=== PATIENT | male | born 1935 | race Caucasian/White ===

== ENCOUNTER 2016-12-11 11:11 | Inpatient (IN) | payer MEDICARE ==
[2016-12-11] VITALS (9 sets, daily range): BP systolic 129–158; BP diastolic 62–88
[~2016-12-11] VITALS: Ht 172.7 cm; Wt 60.8 kg
--- NOTE | ~2016-12-11 | PR ---
[place], [place] PROGRESS NOTE NAME: LIZET BOYCE [facility] #: [id number] UNIT #: [id number] ROOM: 512 DOCTOR: GONZALEZ MEMBRENO MD BIRTHDATE: [birth year] DOS: 12/14/2016 CARDIOLOGY PROGRESS NOTE SUBJECTIVE: The patient was seen at his bedside without any family members in attendance. He is awake, alert and oriented. He denies any specific complaints, but states he has not been out of bed much. He specifically denies palpitations, chest pain or dyspnea. He denies any black stools or diarrhea. PHYSICAL EXAMINATION: VITAL SIGNS: Today, his pulse is 90 and irregularly irregular; blood pressure is 134/67. He weighs 60.8 kilograms with a body mass index of 20.4. NECK: Supple. He has no jugular distention. Carotids are full. LUNGS: Respirations are unlabored. His chest is clear. HEART: Has an irregularly irregular rhythm with a controlled ventricular response. There are no murmurs or gallops. ABDOMEN: Soft and slightly distended, but nontender, without masses. EXTREMITIES: Showed no edema. LABORATORY DATA: From today are not yet available. Specifically, his hemoglobin has not been checked today. IMAGING DATA: Echocardiogram done yesterday 12/13/2016 was a technically limited exam. The patient was in atrial fibrillation with a normal left ventricular size, mild concentric left ventricular hypertrophy, normal segmental left ventricular wall motion and an ejection fraction of 70%-75%. A small pericardial effusion is present with slight thickening of the pericardium, but no evidence for tamponade. IMPRESSION: 1. History of atrial fibrillation since 2013. 2. CHADS-VASc score of 5, indicating a yearly stroke risk of 7%. HAS-BLED score is also 5, indicating a risk of recurrent bleeding to be between 5% and 20%. 3. Anemia, evaluation pending. Anemia is microcytic and is new compared to 04/2016. Presumably, this is due to blood loss, but thus far blood loss has not been documented. PLAN: We will defer any evaluation and management of his anemia to his primary physicians; however, it will be difficult to control his heart rate and maintain an adequate blood pressure while he significantly is anemic. In addition, the patient has a very strong indication for long-term anticoagulation. As soon as he is cleared by his primary team I think he should be back on rivaroxaban. I would not place him on concurrent antiplatelet agent, however. I thank the hospitalist group for asking our advice regarding his care. [place], [place] PROGRESS NOTE NAME: LIZET BOYCE UNIT #: [id number] ROOM: [facility] DOCTOR: GONZALEZ MEMBRENO MD BIRTHDATE: [birth year] GONZALEZ MEMBRENO MD CM:PNTRANS [id number] GONZALEZ MEMBRENO MD 12/14/16 2324 interface
--- NOTE | ~2016-12-11 | PR ---
[place], [place] PROGRESS NOTE NAME: LIZET BOYCE [facility] #: [id number] UNIT #: [id number] ROOM: 512 DOCTOR: GONZALEZ MEMBRENO MD BIRTHDATE: [birth year] DOS: 12/13/2016 CARDIOLOGY PROGRESS NOTE SUBJECTIVE: The patient was seen at his bedside today, 12/13/2016, for followup of his atrial fibrillation with rapid ventricular response. He is an 81-year-old man who initially was documented as having atrial fibrillation in 06/2014. He was maintained for a time on anticoagulants, but stopped them. He is typically followed by the [facility]. In September of this year, he did suffer a stroke and was placed back on rivaroxaban along with aspirin at that time. He states that recently he has been more fatigued and was found on outpatient testing to be severely anemic. He was therefore brought into the hospital for further assessment and management. He has been transfused since admission and his hemoglobin has risen from 6.7-8.1. He does have microcytic indices. Platelet count is normal at 207,000, white count is slightly elevated at 10,500. The patient states that he does feel better since he has been transfused. Thus far, an evaluation for blood loss has been negative. PHYSICAL EXAMINATION: GENERAL: Today, he is a well-nourished, white male who is awake, alert, and oriented. VITAL SIGNS: Pulse is 99 and irregularly irregular, blood pressure is 126/76. He is afebrile. He weighs 60.8 kilograms with a body mass index of 20.4. NECK: Supple. He has no jugular distention. Carotids are full. I heard no bruits. LUNGS: Respirations were unlabored. His chest was clear to auscultation and percussion. HEART: Had an irregularly irregular rhythm without murmurs or gallops. The PMI was not displaced. He had no precordial heave, lift, or thrill. ABDOMEN: Soft and normally active without masses, organomegaly, or bruits. EXTREMITIES: Showed no edema. Peripheral pulses were diminished in the feet. IMPRESSION: 1. History of atrial fibrillation since 2013. 2. CHADS-VASc score of 5, indicating a yearly risk of stroke of about 7%. Unfortunately, the HAS-BLED score is also 5, indicating risk of recurrent bleeding to be between 5% and 20%. PLAN: For now, we will treat him with rate control. We will defer any evaluation of his anemia to his Primary service, but hopefully, they will be able to find a cause for his severe anemia such that we can resume at least Xarelto. Given his recent GI bleed, I would not have him on both rivaroxaban and aspirin. We will follow him with his primary physicians in the hospital. I thank Dr. Bella for asking our advice regarding his care. [place], [place] PROGRESS NOTE NAME: LIZET BOYCE UNIT #: [id number] ROOM: 512 DOCTOR: GONZALEZ MEMBRENO MD BIRTHDATE: [birth year] GONZALEZ MEMBRENO MD CM:PNTRANS [id number] GONZALEZ MEMBRENO MD 12/14/16 0345 interface
[~2016-12-11 11:11] MED LIST: ALBUTEROL0.09 MG/A3 INH; ANTIBIOTIC O500 U/GM TP; DILTIAZEM CD120 MG PO; IRON325 M1 PO; NAPROSYN500 MG PO; OMEPRAZOLE20 MG PO; PARAFON FORTE500 MG PO; PRAVASTATIN SOD40 MG PO; PULMICORT180 MCG/AC INH; SPIRIVA18 MCG PO; XARE20MG PO
[2016-12-11] MEDS ORDERED: XARE20MG PO (11:32)
[2016-12-11] MEDS ORDERED: PROZAC20 MG PO (11:34)
[2016-12-11] MEDS ORDERED: DOCUSATE SODIU100 M2 PO ×2 (11:35)
[2016-12-11] MEDS ORDERED: ASPIRIN CHEWABL81 MG PO (11:36)
[2016-12-11 11:53] LABS: BASO # 0.1 10*3/uL (0.0-0.1); BASO % 0.6 % (0.0-1.0); EOS # 0.3 10*3/uL (0.0-0.4); EOS % 3.1 % (1.0-4.0); HEMATOCRIT 24.7 % (42.0-52.0); HEMOGLOBIN 6.7 g/dl (14.0-18.0); LYMPH # 2.1 10*3/uL (1.3-4.4); LYMPH % 23.7 % (27.0-41.0); MEAN CELL VOLUME 69.6 fl (80.0-94.0); MEAN CORPUSCULAR HGB 18.9 pg (27.0-31.0); MEAN CORPUSCULAR HGB CONC 27.1 g/dl (33.0-37.0); MEAN PLATELET VOLUME 10.4 fl (9.6-12.3); MONO # 0.5 10*3/uL (0.1-1.0); MONO % 6.2 % (3.0-9.0); NEUT # 5.8 10*3/uL (2.3-7.9); NEUT % 66.1 % (47.0-73.0); NUCLEATED RED BLOOD CELL 0.3 % (0.0-0.0); RED BLOOD COUNT 3.55 10*6/uL (4.50-5.90); RED CELL DISTRI WIDTH 25.3 % (0-14.5); WHITE BLOOD COUNT 8.7 10*3/uL (4.8-10.8)
[2016-12-11 12:08] LABS: PROTHROMBIN TIME 10.2 SECONDS (9.0-12.4)
[2016-12-11 12:09] LABS: ALBUMIN 3.1 gm/dl (3.1-4.5); ALKALINE PHOSPHATASE 94 U/L (45-117); BILIRUBIN, DIRECT < 0.1 mg/dL (0.0-0.2); BILIRUBIN, TOTAL 0.4 mg/dl (0.2-1.0); BUN 17 mg/dl (7-24); CARBON DIOXIDE 30 mmol/L (21-32); CHLORIDE 107 mmol/L (98-107); EST GLOM FILT AFRICAN AMERICAN > 60 ml/min; GLUCOSE 117 mg/dL (65-99); POTASSIUM 4.1 mmol/L (3.5-5.1); SGOT/AST 14 IU/L (3-35); SGPT/ALT 24 U/L (12-78); SODIUM 144 mmol/L (136-145); TOTAL PROTEIN 6.7 gm/dL (6.4-8.2)
[2016-12-11 12:11] LABS: PLATELET COUNT AUTOMATED 254 10*3/uL (130-400)
[2016-12-11 12:17] LABS: TROPONIN I < 0.015 ng/ml (<0.045)
[2016-12-11 13:22] LABS: IRON 10 ug/dL (65-175); IRON SATURATION 2 %; UIBC 339 ug/dL (110-410)
[2016-12-11 13:54] LABS: IRF 4.3 % (2.4-13.3)
[2016-12-11 13:55] LABS: RET-He 14.1 pg (32.1-37.9)
[2016-12-11 13:56] LABS: RETICULOCYTE % 1.18 % (0.50-2.50)
[2016-12-11] MEDS ORDERED: FLAXSEED1000 MG PO (14:58)
[2016-12-11] MEDS ORDERED: OMEGA 3 500 SO1 EACH PO (14:59)
[2016-12-11] MEDS ORDERED: MULTI VITAMINS1 TAB PO (15:00)
[2016-12-11 19:04] LABS: BASO # 0.1 10*3/uL (0.0-0.1); BASO % 1.1 % (0.0-1.0); EOS # 0.2 10*3/uL (0.0-0.4); EOS % 2.6 % (1.0-4.0); HEMATOCRIT 26.8 % (42.0-52.0); HEMOGLOBIN 7.9 g/dl (14.0-18.0); LYMPH # 1.9 10*3/uL (1.3-4.4); LYMPH % 23.3 % (27.0-41.0); MEAN CORPUSCULAR HGB 21.5 pg (27.0-31.0); MEAN CORPUSCULAR HGB CONC 29.5 g/dl (33.0-37.0); MEAN PLATELET VOLUME 10.1 fl (9.6-12.3); MONO # 0.6 10*3/uL (0.1-1.0); MONO % 7.9 % (3.0-9.0); NEUT # 5.2 10*3/uL (2.3-7.9); NEUT % 64.7 % (47.0-73.0); NUCLEATED RED BLOOD CELL 0.1 10*3/uL (0.0-0.0); NUCLEATED RED BLOOD CELL 0.6 % (0.0-0.0); PLATELET COUNT AUTOMATED 205 10*3/uL (130-400); RED BLOOD COUNT 3.67 10*6/uL (4.50-5.90); RED CELL DISTRI WIDTH 26.1 % (0-14.5); WHITE BLOOD COUNT 8.1 10*3/uL (4.8-10.8)
[2016-12-11 22:22] LABS: BILIRUBIN NEGATIVE (NEGATIVE); BLOOD NEGATIVE (NEGATIVE); CLARITY CLEAR (CLEAR); COLOR YELLOW (YELLOW); GLUCOSE NEGATIVE (NEGATIVE); KETONE NEGATIVE (NEGATIVE); LEUKO ESTERASE NEGATIVE (NEGATIVE); NITRITE NEGATIVE (NEGATIVE); PH 7.5 (5.0-9.0); PROTEIN NEGATIVE (NEGATIVE); SPECIFIC GRAVITY <= 1.005 (1.005-1.030); UROBILINOGEN 0.2 E.U./dl (0.2-1.0)
[2016-12-11 22:36] LABS: URINE REFLEX COMMENT NO (NO); WBC 0-2 wbc/hpf (0-5)
[2016-12-12] VITALS (7 sets, daily range): BP systolic 115–142; BP diastolic 53–82
[2016-12-12 06:11] LABS: BASO # 0.1 10*3/uL (0.0-0.1); BASO % 0.8 % (0.0-1.0); EOS # 0.3 10*3/uL (0.0-0.4); EOS % 2.7 % (1.0-4.0); HEMATOCRIT 28.7 % (42.0-52.0); HEMOGLOBIN 8.4 g/dl (14.0-18.0); LYMPH # 1.9 10*3/uL (1.3-4.4); LYMPH % 20.2 % (27.0-41.0); MEAN CELL VOLUME 72.8 fl (80.0-94.0); MEAN CORPUSCULAR HGB 21.3 pg (27.0-31.0); MEAN CORPUSCULAR HGB CONC 29.3 g/dl (33.0-37.0); MEAN PLATELET VOLUME 10.4 fl (9.6-12.3); MONO # 0.8 10*3/uL (0.1-1.0); MONO % 8.1 % (3.0-9.0); NEUT # 6.4 10*3/uL (2.3-7.9); NEUT % 67.8 % (47.0-73.0); NUCLEATED RED BLOOD CELL 0.1 10*3/uL (0.0-0.0); NUCLEATED RED BLOOD CELL 0.5 % (0.0-0.0); PLATELET COUNT AUTOMATED 226 10*3/uL (130-400); RED BLOOD COUNT 3.94 10*6/uL (4.50-5.90); RED CELL DISTRI WIDTH 26.3 % (0-14.5); WHITE BLOOD COUNT 9.5 10*3/uL (4.8-10.8)
[2016-12-12 06:22] LABS: ALBUMIN 2.9 gm/dl (3.1-4.5); BILIRUBIN, TOTAL 0.9 mg/dl (0.2-1.0); BUN 12 mg/dl (7-24); CARBON DIOXIDE 29 mmol/L (21-32); CHLORIDE 106 mmol/L (98-107); CHOLESTEROL 127 mg/dL (<200); EST GLOM FILT AFRICAN AMERICAN > 60 ml/min; GLUCOSE 100 mg/dL (65-99); MAGNESIUM 1.9 mg/dL (1.5-2.1); PHOSPHOROUS 2.9 mg/dL (2.5-4.9); SGOT/AST 17 IU/L (3-35); SGPT/ALT 23 U/L (12-78); SODIUM 142 mmol/L (136-145); TOTAL PROTEIN 6.4 gm/dL (6.4-8.2); TRIGLYCERIDES 148 mg/dl (<150); VLDL CHOLESTEROL 30 mg/dL (6-40)
[2016-12-12 06:27] LABS: ALKALINE PHOSPHATASE 94 U/L (45-117); HDL CHOLESTEROL 59 mg/dl (40-60); LDL CHOLESTEROL 38 mg/dL (9-159)
[2016-12-12 06:36] LABS: HEMOGLOBIN A1c 5.5 % (4.8-5.6)
[2016-12-12 06:57] LABS: VITAMIN D, 25-HYDROXY 27.4 ng/mL (30-100)
[2016-12-12 06:58] LABS: FOLIC ACID 18.86 ng/mL (>5.38)
[2016-12-13] VITALS: BP 132/60
[2016-12-13 06:07] LABS: HEMATOCRIT 28.4 % (42.0-52.0); HEMOGLOBIN 8.1 g/dl (14.0-18.0); MEAN CELL VOLUME 73.2 fl (80.0-94.0); MEAN CORPUSCULAR HGB 20.9 pg (27.0-31.0); MEAN CORPUSCULAR HGB CONC 28.5 g/dl (33.0-37.0); NUCLEATED RED BLOOD CELL 0.3 % (0.0-0.0); PLATELET COUNT AUTOMATED 207 10*3/uL (130-400); RED BLOOD COUNT 3.88 10*6/uL (4.50-5.90); RED CELL DISTRI WIDTH 27.4 % (0-14.5); WHITE BLOOD COUNT 10.5 10*3/uL (4.8-10.8)
[2016-12-13 06:45] LABS: BUN 18 mg/dl (7-24); CARBON DIOXIDE 28 mmol/L (21-32); CHLORIDE 106 mmol/L (98-107); EST GLOM FILT AFRICAN AMERICAN > 60 ml/min; GLUCOSE 107 mg/dL (65-99); POTASSIUM 3.9 mmol/L (3.5-5.1); SODIUM 142 mmol/L (136-145)
[2016-12-13 07:05] LABS: BASOPHIL # 0.1 10*3/uL (0-0.1); BASOPHILS 1 % (0-1); EOSINOPHIL # 0.2 10*3/uL (0-0.4); EOSINOPHILS 2 % (1-4); LYMPHOCYTE # 2.1 10*3/uL (1.3-4.4); MONOCYTE # 0.5 10*3/uL (0.1-1.0); NEUTROPHIL # 7.6 10*3/uL (2.3-7.9); NEUTROPHILS 72 % (47-73); TOTAL CELLS COUNTED 100 #CELLS
[2016-12-13 07:06] LABS: HYPOCHROMIA MODERATE; MICROCYTOSIS MODERATE; PLATELET SUFFICIENCY NORMAL (NORMAL); POLYCHROMASIA SLIGHT; TARGET CELLS FEW; TEAR DROP CELLS FEW
[2016-12-13 08:00] VITALS: BP 126/76
[2016-12-13 12:00] VITALS: BP 132/76
[2016-12-13 16:00] VITALS: BP 127/67
[2016-12-13 20:00] VITALS: BP 129/60
[2016-12-14] VITALS: BP 134/67
[2016-12-14 08:00] VITALS: BP 130/82
[2016-12-14 09:48] LABS: BASO # 0.1 10*3/uL (0.0-0.1); BASO % 0.9 % (0.0-1.0); EOS # 0.3 10*3/uL (0.0-0.4); EOS % 2.4 % (1.0-4.0); HEMATOCRIT 27.8 % (42.0-52.0); IG # 0.1 10*3/uL (0.0-0.1); LYMPH # 2.1 10*3/uL (1.3-4.4); LYMPH % 17.7 % (27.0-41.0); MEAN CELL VOLUME 72.6 fl (80.0-94.0); MEAN CORPUSCULAR HGB 20.9 pg (27.0-31.0); MEAN CORPUSCULAR HGB CONC 28.8 g/dl (33.0-37.0); MEAN PLATELET VOLUME 10.3 fl (9.6-12.3); MONO % 8.9 % (3.0-9.0); NEUT # 8.1 10*3/uL (2.3-7.9); NEUT % 69.5 % (47.0-73.0); NUCLEATED RED BLOOD CELL 0.2 % (0.0-0.0); PLATELET COUNT AUTOMATED 214 10*3/uL (130-400); RED BLOOD COUNT 3.83 10*6/uL (4.50-5.90); RED CELL DISTRI WIDTH 27.8 % (0-14.5); WHITE BLOOD COUNT 11.7 10*3/uL (4.8-10.8)
[2016-12-14 12:00] VITALS: BP 138/62
[2016-12-14] MEDS ORDERED: DILTIAZEM HYDR180 M2 PO (12:02)
[2016-12-14] MEDS ORDERED: D-1000 185 MG-11 TAB PO (12:02)
[2016-12-14] MEDS ORDERED: FERROUSAL325 MG PO (12:41)
== END 2016-12-14 16:31 | disposition home health service (06) | DRG 812 ==
LOC: ED 11:11 → EDHOLD 12:26 → 5E 12:26
PROVIDERS: Emergency Medicine; Hospitalist; Internal Medicine; Internal Medicine Hospice and Palliative Medicine
PROC: 30233N1 Transfusion of Nonautologous Red Blood Cells into Peripheral Vein, Percutaneous Approach (ICD-10-PCS; principal; 2016-12-11)
DX: D50.9 Iron deficiency anemia, unspecified (principal); E44.0 Moderate protein-calorie malnutrition; D68.59 Other primary thrombophilia; F33.9 Major depressive disorder, recurrent, unspecified; I48.2 Chronic atrial fibrillation; E78.2 Mixed hyperlipidemia; I10 Essential (primary) hypertension; Z68.1 Body mass index [BMI] 19.9 or less, adult; J41.8 Mixed simple and mucopurulent chronic bronchitis; K21.9 Gastro-esophageal reflux disease without esophagitis; Z86.73 Personal history of transient ischemic attack (TIA), and cerebral infarction without residual deficits; Z87.891 Personal history of nicotine dependence; Z82.49 Family history of ischemic heart disease and other diseases of the circulatory system; Z79.82 Long term (current) use of aspirin; Z79.899 Other long term (current) drug therapy

== ENCOUNTER 2016-12-16 14:08 | Emergency (ER) | payer MEDICARE ==
[~2016-12-16] VITALS: Wt 59.0 kg
[~2016-12-16 14:08] MED LIST changes: +ASPIRIN CHEWABL81 MG PO; +D-1000 185 MG-11 TAB PO; +DILTIAZEM HYDR180 M2 PO; +DOCUSATE SODIU100 M2 PO; +FERROUSAL325 MG PO; +FLAXSEED1000 MG PO; +MULTI VITAMINS1 TAB PO; +OMEGA 3 500 SO1 EACH PO; +PROZAC20 MG PO
[2016-12-16 14:24] VITALS: BP 158/98
[2016-12-16 15:16] LABS: BASO # 0.1 10*3/uL (0.0-0.1); BASO % 0.8 % (0.0-1.0); EOS # 0.2 10*3/uL (0.0-0.4); EOS % 1.4 % (1.0-4.0); HEMATOCRIT 30.5 % (42.0-52.0); HEMOGLOBIN 8.5 g/dl (14.0-18.0); LYMPH # 1.8 10*3/uL (1.3-4.4); LYMPH % 13.8 % (27.0-41.0); MEAN CELL VOLUME 74.9 fl (80.0-94.0); MEAN CORPUSCULAR HGB 20.9 pg (27.0-31.0); MEAN CORPUSCULAR HGB CONC 27.9 g/dl (33.0-37.0); MEAN PLATELET VOLUME 10.3 fl (9.6-12.3); NEUT # 9.7 10*3/uL (2.3-7.9); NEUT % 75.7 % (47.0-73.0); PLATELET COUNT AUTOMATED 239 10*3/uL (130-400); RED BLOOD COUNT 4.07 10*6/uL (4.50-5.90); RED CELL DISTRI WIDTH 27.8 % (0-14.5); WHITE BLOOD COUNT 12.8 10*3/uL (4.8-10.8)
[2016-12-16 15:31] LABS: ALBUMIN 2.9 gm/dl (3.1-4.5); ALKALINE PHOSPHATASE 90 U/L (45-117); BILIRUBIN, TOTAL 0.4 mg/dl (0.2-1.0); BUN 15 mg/dl (7-24); CARBON DIOXIDE 30 mmol/L (21-32); CHLORIDE 106 mmol/L (98-107); EST GLOM FILT AFRICAN AMERICAN > 60 ml/min; GLUCOSE 102 mg/dL (65-99); SGOT/AST 16 IU/L (3-35); SGPT/ALT 19 U/L (12-78); SODIUM 141 mmol/L (136-145); TOTAL PROTEIN 6.6 gm/dL (6.4-8.2)
[2016-12-16] MEDS ORDERED: CEPHALEXIN500 M1 PO (16:15)
== END 2016-12-16 16:24 | disposition home or self-care (01) ==
LOC: ED 14:08
PROVIDERS: Nurse Practitioner Family
DX: I80.8 Phlebitis and thrombophlebitis of other sites (principal); Z87.891 Personal history of nicotine dependence; I48.91 Unspecified atrial fibrillation; J44.9 Chronic obstructive pulmonary disease, unspecified; F32.9 Major depressive disorder, single episode, unspecified; I10 Essential (primary) hypertension; E78.5 Hyperlipidemia, unspecified; Z86.73 Personal history of transient ischemic attack (TIA), and cerebral infarction without residual deficits; Z79.899 Other long term (current) drug therapy

== ENCOUNTER 2017-09-20 12:43 | Inpatient (IN) | payer MEDICARE ==
[~2017-09-20] VITALS: Ht 170.1 cm; Wt 57.3 kg
[~2017-09-20 12:43] MED LIST changes: +CEPHALEXIN500 M1 PO
[2017-09-20 12:52] VITALS: BP 119/70
[2017-09-20 13:39] LABS: BILIRUBIN NEGATIVE (NEGATIVE); BLOOD TRACE-LYSED (NEGATIVE); CLARITY SL CLOUDY (CLEAR); COLOR YELLOW (YELLOW); GLUCOSE NEGATIVE (NEGATIVE); KETONE TRACE (NEGATIVE); LEUKO ESTERASE TRACE (NEGATIVE); NITRITE NEGATIVE (NEGATIVE)
[2017-09-20 13:47] LABS: BACTERIA 2+
[2017-09-20 13:55] LABS: BASO # 0.1 10*3/uL (0.0-0.1); BASO % 0.5 % (0.0-1.0); EOS % 0.4 % (1.0-4.0); HEMATOCRIT 33.5 % (42.0-52.0); HEMOGLOBIN 10.8 g/dl (14.0-18.0); LYMPH # 1.2 10*3/uL (1.3-4.4); LYMPH % 10.8 % (27.0-41.0); MEAN CELL VOLUME 87.7 fl (80.0-94.0); MEAN CORPUSCULAR HGB 28.3 pg (27.0-31.0); MEAN CORPUSCULAR HGB CONC 32.2 g/dl (33.0-37.0); MEAN PLATELET VOLUME 11.7 fl (9.6-12.3); MONO # 0.7 10*3/uL (0.1-1.0); MONO % 5.9 % (3.0-9.0); NEUT # 9.1 10*3/uL (2.3-7.9); NEUT % 82.1 % (47.0-73.0); PLATELET COUNT AUTOMATED 208 10*3/uL (130-400); RED BLOOD COUNT 3.82 10*6/uL (4.50-5.90); RED CELL DISTRI WIDTH 15.1 % (0-14.5)
[2017-09-20 14:01] VITALS: BP 128/74
[2017-09-20 14:03] LABS: ACT PARTIAL THROMBO TIME 29.5 SECONDS (20.8-31.5); INTERNATIONAL NORM RATIO 1.1 (2.0-3.5)
[2017-09-20 14:12] LABS: ALBUMIN 2.9 gm/dl (3.1-4.5); ALKALINE PHOSPHATASE 86 U/L (45-117); BUN 26 mg/dl (7-24); CHLORIDE 105 mmol/L (98-107); CREATININE 0.86 mg/dL (0.70-1.30); POTASSIUM 4.4 mmol/L (3.5-5.1); SGOT/AST 15 IU/L (3-35); SGPT/ALT 16 U/L (12-78); SODIUM 141 mmol/L (136-145); TOTAL PROTEIN 7.1 gm/dL (6.4-8.2)
[2017-09-20 14:19] LABS: TROPONIN I < 0.015 ng/ml (<0.045)
[2017-09-20 15:44] VITALS: BP 139/70
[2017-09-20] MEDS ORDERED: SERTRALINE HYD100 MG PO (15:48)
[2017-09-20] MEDS ORDERED: DOCUSATE SOD100 MG PO (15:50)
[2017-09-20 16:00] VITALS: BP 123/58
[2017-09-20 20:00] VITALS: BP 100/66
[2017-09-21] VITALS: BP 101/57
[2017-09-21 06:43] LABS: BASO % 0.5 % (0.0-1.0); EOS # 0.2 10*3/uL (0.0-0.4); EOS % 2.3 % (1.0-4.0); HEMATOCRIT 30.3 % (42.0-52.0); HEMOGLOBIN 9.6 g/dl (14.0-18.0); LYMPH # 1.5 10*3/uL (1.3-4.4); LYMPH % 17.2 % (27.0-41.0); MEAN CELL VOLUME 87.1 fl (80.0-94.0); MEAN CORPUSCULAR HGB 27.6 pg (27.0-31.0); MEAN CORPUSCULAR HGB CONC 31.7 g/dl (33.0-37.0); MEAN PLATELET VOLUME 11.9 fl (9.6-12.3); MONO # 0.6 10*3/uL (0.1-1.0); NEUT # 6.3 10*3/uL (2.3-7.9); NEUT % 72.8 % (47.0-73.0); PLATELET COUNT AUTOMATED 187 10*3/uL (130-400); RED BLOOD COUNT 3.48 10*6/uL (4.50-5.90); RED CELL DISTRI WIDTH 15.1 % (0-14.5); WHITE BLOOD COUNT 8.6 10*3/uL (4.8-10.8)
[2017-09-21 06:48] LABS: ALBUMIN 2.5 gm/dl (3.1-4.5); BUN 20 mg/dl (7-24); CHLORIDE 108 mmol/L (98-107); CHOLESTEROL 110 mg/dL (<200); CREATININE 0.62 mg/dL (0.70-1.30); PHOSPHOROUS 2.4 mg/dL (2.5-4.9); POTASSIUM 3.9 mmol/L (3.5-5.1); SGOT/AST 16 IU/L (3-35); SGPT/ALT 15 U/L (12-78); SODIUM 143 mmol/L (136-145); TOTAL PROTEIN 6.2 gm/dL (6.4-8.2); TRIGLYCERIDES 125 mg/dl (<150); VLDL CHOLESTEROL 25 mg/dL (6-40)
[2017-09-21 06:55] LABS: ALKALINE PHOSPHATASE 71 U/L (45-117); FREE T4 1.15 ng/dl (0.76-1.46); HDL CHOLESTEROL 43 mg/dl (40-60); LDL CHOLESTEROL 42 mg/dL (9-159)
[2017-09-21 06:58] LABS: ACT PARTIAL THROMBO TIME 25.1 SECONDS (20.8-31.5)
[2017-09-21 08:00] VITALS: BP 149/72
[2017-09-21 08:37] LABS: VITAMIN D, 25-HYDROXY 29.1 ng/mL (30-100)
[2017-09-21 12:00] VITALS: BP 129/69
[2017-09-21 16:00] VITALS: BP 125/74
[2017-09-21 20:00] VITALS: BP 131/68
[2017-09-22] VITALS: BP 134/61
[2017-09-22 05:59] LABS: BASO # 0.1 10*3/uL (0.0-0.1); BASO % 0.7 % (0.0-1.0); EOS # 0.2 10*3/uL (0.0-0.4); EOS % 2.6 % (1.0-4.0); HEMATOCRIT 28.7 % (42.0-52.0); HEMOGLOBIN 9.3 g/dl (14.0-18.0); LYMPH # 1.5 10*3/uL (1.3-4.4); LYMPH % 17.3 % (27.0-41.0); MEAN CELL VOLUME 87.2 fl (80.0-94.0); MEAN CORPUSCULAR HGB 28.3 pg (27.0-31.0); MEAN CORPUSCULAR HGB CONC 32.4 g/dl (33.0-37.0); MEAN PLATELET VOLUME 11.1 fl (9.6-12.3); MONO # 0.7 10*3/uL (0.1-1.0); MONO % 8.5 % (3.0-9.0); NEUT # 5.9 10*3/uL (2.3-7.9); NEUT % 70.5 % (47.0-73.0); PLATELET COUNT AUTOMATED 195 10*3/uL (130-400); RED BLOOD COUNT 3.29 10*6/uL (4.50-5.90); WHITE BLOOD COUNT 8.4 10*3/uL (4.8-10.8)
[2017-09-22 06:10] LABS: BUN 16 mg/dl (7-24); CHLORIDE 108 mmol/L (98-107); CREATININE 0.59 mg/dL (0.70-1.30); POTASSIUM 4.1 mmol/L (3.5-5.1); SODIUM 142 mmol/L (136-145)
[2017-09-22 06:12] LABS: VANCOMYCIN TROUGH 6.9 ug/mL (10-20)
[2017-09-22 07:57] VITALS: BP 135/58
[2017-09-22 12:00] VITALS: BP 128/62
[2017-09-22 16:00] VITALS: BP 130/61
[2017-09-22 20:00] VITALS: BP 135/55
[2017-09-22 23:52] VITALS: BP 140/69
[2017-09-23 07:01] LABS: BASO # 0.1 10*3/uL (0.0-0.1); BASO % 0.5 % (0.0-1.0); EOS # 0.2 10*3/uL (0.0-0.4); EOS % 2.3 % (1.0-4.0); HEMATOCRIT 28.3 % (42.0-52.0); HEMOGLOBIN 9.1 g/dl (14.0-18.0); LYMPH # 1.4 10*3/uL (1.3-4.4); LYMPH % 14.2 % (27.0-41.0); MEAN CELL VOLUME 87.6 fl (80.0-94.0); MEAN CORPUSCULAR HGB 28.2 pg (27.0-31.0); MEAN CORPUSCULAR HGB CONC 32.2 g/dl (33.0-37.0); MEAN PLATELET VOLUME 11.4 fl (9.6-12.3); MONO # 0.8 10*3/uL (0.1-1.0); MONO % 8.7 % (3.0-9.0); NEUT # 7.1 10*3/uL (2.3-7.9); NEUT % 73.9 % (47.0-73.0); PLATELET COUNT AUTOMATED 232 10*3/uL (130-400); RED BLOOD COUNT 3.23 10*6/uL (4.50-5.90); RED CELL DISTRI WIDTH 14.9 % (0-14.5); WHITE BLOOD COUNT 9.6 10*3/uL (4.8-10.8)
[2017-09-23 07:32] LABS: BUN 13 mg/dl (7-24); CHLORIDE 105 mmol/L (98-107); CREATININE 0.64 mg/dL (0.70-1.30); SODIUM 139 mmol/L (136-145)
[2017-09-23 08:00] VITALS: BP 137/76
[2017-09-23 12:03] VITALS: BP 146/76
[2017-09-23 16:00] VITALS: BP 137/63
[2017-09-23 20:00] VITALS: BP 138/59
[2017-09-24] VITALS: BP 139/63
[2017-09-24 05:58] LABS: BASO # 0.1 10*3/uL (0.0-0.1); BASO % 0.5 % (0.0-1.0); EOS # 0.3 10*3/uL (0.0-0.4); EOS % 3.1 % (1.0-4.0); HEMATOCRIT 28.8 % (42.0-52.0); HEMOGLOBIN 9.3 g/dl (14.0-18.0); LYMPH # 1.6 10*3/uL (1.3-4.4); LYMPH % 17.7 % (27.0-41.0); MEAN CELL VOLUME 86.5 fl (80.0-94.0); MEAN CORPUSCULAR HGB 27.9 pg (27.0-31.0); MEAN CORPUSCULAR HGB CONC 32.3 g/dl (33.0-37.0); MEAN PLATELET VOLUME 11.1 fl (9.6-12.3); MONO # 0.9 10*3/uL (0.1-1.0); MONO % 9.3 % (3.0-9.0); NEUT # 6.3 10*3/uL (2.3-7.9); NEUT % 69.1 % (47.0-73.0); PLATELET COUNT AUTOMATED 236 10*3/uL (130-400); RED BLOOD COUNT 3.33 10*6/uL (4.50-5.90); WHITE BLOOD COUNT 9.1 10*3/uL (4.8-10.8)
[2017-09-24 06:34] LABS: BUN 12 mg/dl (7-24); CHLORIDE 105 mmol/L (98-107); CREATININE 0.61 mg/dL (0.70-1.30); POTASSIUM 3.9 mmol/L (3.5-5.1); SODIUM 141 mmol/L (136-145)
[2017-09-24 08:00] VITALS: BP 139/77
[2017-09-24 12:00] VITALS: BP 128/74
[2017-09-24 16:00] VITALS: BP 119/64
[2017-09-24 20:00] VITALS: BP 126/61
[2017-09-25] VITALS: BP 143/72
[2017-09-25 08:00] VITALS: BP 132/74
[2017-09-25 12:00] VITALS: BP 146/89
[2017-09-25 15:57] VITALS: BP 115/52
[2017-09-25 20:00] VITALS: BP 148/57
[2017-09-26] VITALS: BP 136/83
[2017-09-26 06:57] LABS: BASO # 0.1 10*3/uL (0.0-0.1); BASO % 0.6 % (0.0-1.0); EOS # 0.3 10*3/uL (0.0-0.4); EOS % 2.8 % (1.0-4.0); HEMATOCRIT 31.2 % (42.0-52.0); LYMPH # 1.5 10*3/uL (1.3-4.4); LYMPH % 15.2 % (27.0-41.0); MEAN CELL VOLUME 87.4 fl (80.0-94.0); MEAN CORPUSCULAR HGB CONC 32.1 g/dl (33.0-37.0); MEAN PLATELET VOLUME 10.8 fl (9.6-12.3); MONO # 0.8 10*3/uL (0.1-1.0); MONO % 7.5 % (3.0-9.0); NEUT # 7.4 10*3/uL (2.3-7.9); NEUT % 73.5 % (47.0-73.0); PLATELET COUNT AUTOMATED 295 10*3/uL (130-400); RED BLOOD COUNT 3.57 10*6/uL (4.50-5.90); RED CELL DISTRI WIDTH 15.1 % (0-14.5); WHITE BLOOD COUNT 10.1 10*3/uL (4.8-10.8)
[2017-09-26 07:20] LABS: BUN 12 mg/dl (7-24); CHLORIDE 106 mmol/L (98-107); CREATININE 0.69 mg/dL (0.70-1.30); POTASSIUM 3.8 mmol/L (3.5-5.1); SODIUM 142 mmol/L (136-145)
[2017-09-26 08:00] VITALS: BP 150/80
[2017-09-26 12:00] VITALS: BP 139/78
[2017-09-26 16:00] VITALS: BP 132/76
[2017-09-26] MEDS ORDERED: VITAMIN D-32000 UNI1 PO (16:20)
[2017-09-26] MEDS ORDERED: KEFLEX500 M1 PO (16:21)
== END 2017-09-26 19:10 | disposition home health service (06) | DRG 602 ==
LOC: ED 12:43 → EDHOLD 13:46 → 5E 13:46
PROVIDERS: Emergency Medicine; Internal Medicine
DX: L03.116 Cellulitis of left lower limb (principal); E43 Unspecified severe protein-calorie malnutrition; D68.9 Coagulation defect, unspecified; D64.9 Anemia, unspecified; I48.2 Chronic atrial fibrillation; I69.351 Hemiplegia and hemiparesis following cerebral infarction affecting right dominant side; Z68.1 Body mass index [BMI] 19.9 or less, adult; J44.9 Chronic obstructive pulmonary disease, unspecified; K21.9 Gastro-esophageal reflux disease without esophagitis; F32.9 Major depressive disorder, single episode, unspecified; R73.9 Hyperglycemia, unspecified; T45.515A Adverse effect of anticoagulants, initial encounter; R26.81 Unsteadiness on feet; Z60.2 Problems related to living alone; I10 Essential (primary) hypertension; E78.5 Hyperlipidemia, unspecified; Z87.891 Personal history of nicotine dependence; Z79.899 Other long term (current) drug therapy; Z82.49 Family history of ischemic heart disease and other diseases of the circulatory system; Z79.01 Long term (current) use of anticoagulants; Y92.89 Other specified places as the place of occurrence of the external cause

== ENCOUNTER 2018-01-26 18:38 | Emergency (ER) | payer OTHER, MEDICARE ==
[~2018-01-26] VITALS: Ht 170.1 cm; Wt 59.0 kg
[~2018-01-26 18:38] MED LIST changes: +DOCUSATE SOD100 MG PO; +KEFLEX500 M1 PO; +SERTRALINE HYD100 MG PO; +VITAMIN D-32000 UNI1 PO
[2018-01-26] MEDS ORDERED: IRON325 M1 PO (18:53)
[2018-01-26] MEDS ORDERED: PRAVASTATIN SOD20 MG PO (18:53)
[2018-01-26 19:14] LABS: BASO # 0.1 10*3/uL (0.0-0.1); BASO % 0.9 % (0.0-1.0); EOS # 0.2 10*3/uL (0.0-0.4); HEMATOCRIT 43.2 % (42.0-52.0); HEMOGLOBIN 13.2 g/dl (14.0-18.0); LYMPH # 1.4 10*3/uL (1.3-4.4); LYMPH % 15.5 % (27.0-41.0); MEAN CORPUSCULAR HGB 23.8 pg (27.0-31.0); MEAN CORPUSCULAR HGB CONC 30.6 g/dl (33.0-37.0); MONO # 0.8 10*3/uL (0.1-1.0); MONO % 8.5 % (3.0-9.0); NEUT # 6.7 10*3/uL (2.3-7.9); NEUT % 72.9 % (47.0-73.0); PLATELET COUNT AUTOMATED 196 10*3/uL (130-400); RED BLOOD COUNT 5.54 10*6/uL (4.50-5.90); WHITE BLOOD COUNT 9.2 10*3/uL (4.8-10.8)
[2018-01-26 19:22] LABS: ACT PARTIAL THROMBO TIME 27.3 SECONDS (20.8-31.5); INTERNATIONAL NORM RATIO 1.1 (2.0-3.5)
[2018-01-26 19:29] LABS: ALBUMIN 3.2 gm/dl (3.1-4.5); BUN 15 mg/dl (7-24); CHLORIDE 106 mmol/L (98-107); SGOT/AST 143 IU/L (3-35); SGPT/ALT 174 U/L (12-78); SODIUM 143 mmol/L (136-145)
[2018-01-26 19:39] LABS: ALKALINE PHOSPHATASE 1413 U/L (45-117); LIPASE 2337 U/L (73-393)
[2018-01-26 19:40] LABS: TROPONIN I < 0.015 ng/ml (<0.045)
[2018-01-26 20:02] LABS: BILIRUBIN 2+ (NEGATIVE); BLOOD TRACE-INTACT (NEGATIVE); CLARITY SL CLOUDY (CLEAR); COLOR YELLOW (YELLOW); GLUCOSE NEGATIVE (NEGATIVE); KETONE NEGATIVE (NEGATIVE); LEUKO ESTERASE NEGATIVE (NEGATIVE); NITRITE NEGATIVE (NEGATIVE); PH 6.5 (5.0-9.0); SPECIFIC GRAVITY 1.025 (1.005-1.030)
[2018-01-26 20:11] LABS: CALCIUM OXALATE CRYSTALS 1+
[2018-01-26 20:12] LABS: BACTERIA TRACE; EPITHELIAL CELLS 0-2; MUCOUS 2+
[2018-01-26 22:20] VITALS: BP 168/90
== END 2018-01-26 22:19 | disposition home or self-care (01) ==
LOC: ED 18:38
PROVIDERS: Physician Assistant
DX: R17 Unspecified jaundice (principal); R74.0 Nonspecific elevation of levels of transaminase and lactic acid dehydrogenase [LDH]; E80.6 Other disorders of bilirubin metabolism; Z79.899 Other long term (current) drug therapy

== ENCOUNTER 2018-01-27 21:16 | Inpatient (IN) | payer MEDICARE, OTHER ==
[~2018-01-27] VITALS: Ht 170.2 cm; Wt 56.9 kg
--- NOTE | ~2018-01-27 | O ---
[place], [place] OPERATIVE NOTE [id number] UNIT #: [id number] ROOM: 512 DOCTOR: SUNIL LIEBERMANJUJU BIRTHDATE: [birth year] DOS: 01/30/2018 ADDENDUM PROCEDURE: Today's procedure part of investigation is ERCP plus papillotomy plus balloon sweep of copious bilious matter as well as pus plus brush of common bile duct for cytology plus common bile duct stent. REPORT: After putting the patient in left lateral position and application of lubricant to the scope, the scope was introduced. Thereafter, under direct visualization, advanced through the length of esophagus into gastric pouch into duodenal bulb. Ampulla of Vater was found at the opening margin of the duodenal diverticulum. Selective cannulization of common duct was performed with guidewire and after that the cannula was placed. Dye was injected. Verification of hepatic radicles was undertaken. Papillary stenosis, so far appreciated. Papillotomy at 1 o'clock position was done and extended. Thereafter, a balloon size 12 was introduced into the common duct and ____ least several passages were done and copious volume of bilious matter as well as pus admixed with bilious matter was removed. As I do that, I experienced lump sensation in the mid common duct. This was addressed with several passages of the balloon sweep from hepatic junction of the common hepatic duct all the way to the ampulla. Continuously, the common duct was mixed out of the bilious thick matter that it contained as well as pus. At this stage, a biliary brush was introduced over the wire into the common duct and the area of the concern was brushed for cytology and cell block. At this stage, after the brush was removed. Common bile duct stent size 10 x 7 was deployed into the common duct. Photographic and radiologic position of the stent was documented. Air was suctioned out. The patient tolerated the procedure well. IMPRESSION: Duodenal diverticulum high-grade papillary stenosis, status post papillotomy, status post ERCP, status post common bile duct, sweep of copious volume of pus and sludge, status post brush for cytology of common bile duct, status post common bile duct stent size 10 x 7. PLAN AND DISCUSSION: We are going to start him on Zosyn 3.375 g every 6 hours today and every 8 hours from tomorrow. We are going to continue with IV hydration. We are going to give him ice cream, milk shake, ice jello today and tomorrow. We are going to start him back on a regular diet. If pancreatitis has improved, hopefully by tomorrow we are going to have any further improved lipase as well as LFTs. At this stage, I remain concerned about the biliary cytology although the sensitivity is very dismal, but at least the steps have been taken. In any stage, his biliary stent ____ for hopefully continuation of the flow of bilious matter and pus out of his hepatic radicles, which was inducing ascending cholangitis. [place], [place] OPERATIVE NOTE NAME: AUSTENLIZET K UNIT #: [id number] ROOM: 512 DOCTOR: SUNIL LIEBERMAN,JUJU BIRTHDATE: [birth year] JUJU BARBER MD CM:OPRECORD:OPERATIVE NOTE [id number] JUJU BARBER MD 02/01/18 1118 LORENA SALINAS.R
--- NOTE | ~2018-01-27 | O ---
[place], [place] OPERATIVE NOTE [id number] #: [id number] ROOM: 512 DOCTOR: SUNIL LIEBERMANJUJU BIRTHDATE: [birth year] DOS: 02/03/2018 GASTROENDOSOPIC REPORT This is an 82-year-old patient who presented with chief complaint of right upper quadrant pain. HISTORY OF PRESENT ILLNESS: The patient was suspected to have biliary obstruction. He was addressed a few days ago with an ERCP, copious volume of the bilious, and sludge and stones from the common duct was retrieved. The patient has not been recovering from abnormalities of LFTs and bilirubin today 1.8. Lipase was 601, I was concerned about the narrowing in mid common duct that has been brushed for cytology in recent past. His alkaline phosphatase has been persisted to be elevated at 10:15. Today's procedure part of investigation is ERCP removal of obstructed stent and replacement with new common bile duct, stent size 10 x 5 plus balloon sweep of common duct. PREMEDICATION: Versed and propofol. SCOPE: Olympus side-viewing duodenal scope. REPORT: After putting the patient in left lateral position and application of lubricant to the scope, the scope was introduced. Thereafter now under direct visualization, advanced through the length of esophagus into gastric pouch into duodenal bulb. Obstructed stent, which has migrated partially was identified, photographed and snared and orally extracted. The patient was rescoped, papilla of Vater was patent clearly, still copious volume of bile was matter and debris has been secreted. Guidewire was introduced into the common duct. Opacification was performed and narrowing in the mid common duct was noticed. A balloon therefore was introduced into the proximal hepatic duct and inflated to size 13 and while we were infusing dye, balloon was swept out. As the balloon gets to mid common bile duct, it takes tension of a stricture in mid common duct. However, this balloon was repositioned multiple times and swept the common duct. No new stone; however, a sludge was present. At this stage, a stent size 10 x 5 was deployed through and beyond strictured segment as well. This stricture has been already brushed and awaiting results. The alkaline phosphatase of 1000+ is not benign and I my organize an MRCP as in or outpatient to assure there is no further compressive mass outside the common duct. 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 PLAN ON DISCUSSION: Follow up on liver function tests. [place], [place] OPERATIVE NOTE NAME: LIZET BOYCE UNIT #: [id number] ROOM: [facility] DOCTOR: SUNIL LIEBERMAN,JUJU BIRTHDATE: [birth year] JUJU BARBER MD CM:OPRECORD:OPERATIVE NOTE [id number] JUJU BARBER MD 02/03/18 1647 interface
--- NOTE | ~2018-01-27 | O ---
[place], [place] OPERATIVE NOTE [id number] #: [id number] ROOM: 512 DOCTOR: SUNIL LIEBERMANJUJU BIRTHDATE: [birth year] DOS: 01/30/2018 GASTROENDOSCOPIC REPORT INDICATIONS: This is an 82-year-old patient who presented to Emergency Room with chief complaint of cross abdominal pain and was found to have Pancreatitis, abnormal liver function test. The patient had to be admitted for definitive evaluation. The patient's pancreatitis was addressed with IV hydration for past couple of days to stabilize. PAST MEDICAL HISTORY: Atrial fibrillation, COPD, depression, gastroesophageal reflux, hypertension. PAST SURGICAL HISTORY: Right hip. SOCIAL HISTORY: Nonsmoker, nonalcohol consumer at the present time. He has stopped both few years ago. FAMILY HISTORY: Noncontributory. ALLERGIES: IVP DYE. MEDICATIONS: Reviewed. PROCEDURE: Today's procedure part of investigation is ERCP plus papillotomy plus balloon sweep of copious bilious matter as well as pus plus brush of common bile duct for cytology plus common bile duct stent. REPORT: After putting the patient in left lateral position and application of lubricant to the scope, the scope was introduced. Thereafter, under direct visualization, advanced through the length of esophagus into gastric pouch into duodenal bulb. Ampulla of Vater was found at the opening margin of the duodenal diverticulum. Selective cannulization of common duct was performed with guidewire and after that the cannula was placed. Dye was injected. Verification of hepatic radicles was undertaken. Papillary stenosis, so far appreciated. Papillotomy at 1 o'clock position was done and extended. Thereafter, a balloon size 12 was introduced into the common duct and painstakingly at least several passages were done and copious volume of bilious matter as well as pus admixed with bilious matter was removed. As I do that, I experienced lump sensation in the mid common duct. This was addressed with several passages of the balloon sweep from hepatic junction of the common hepatic duct all the way to the ampulla. Continuously, the common duct was mixed out of the bilious thick matter that it contained as well as pus. At this stage, a biliary brush was introduced over the wire into the common duct and the area of the concern was brushed for cytology and cell block. At this stage, after the brush was removed. Common bile duct stent size 10 x 7 was deployed into the common duct. Photographic and radiologic position of the stent was documented. Air was suctioned out. The patient tolerated the procedure well. IMPRESSION: Duodenal diverticulum high-grade papillary stenosis, status post [place], [place] OPERATIVE NOTE NAME: LIZET BOYCE UNIT #: [id number] ROOM: 512 DOCTOR: SUNIL LIEBERMAN,JUJU BIRTHDATE: [birth year] papillotomy, status post ERCP, status post common bile duct, sweep of copious volume of pus and sludge, status post brush for cytology of common bile duct, status post common bile duct stent size 10 x 7. PLAN AND DISCUSSION: We are going to start him on Zosyn 3.375 g every 6 hours today and every 8 hours from tomorrow. We are going to continue with IV hydration. We are going to give him ice cream, milk shake, ice jello today and tomorrow. We are going to start him back on a regular diet. If pancreatitis has improved, hopefully by tomorrow we are going to have any further improved lipase as well as LFTs. At this stage, I remain concerned about the biliary cytology although the sensitivity is very dismal, but at least the steps have been taken. In any stage, his biliary stent is now in assurance for hopefully continuation of the flow of bilious matter and pus out of his hepatic radicles, which was inducing ascending cholangitis. JUJU BARBER MD CM:OPRECORD:OPERATIVE NOTE [id number] JUJU BARBER MD 02/01/18 1118 interface
[~2018-01-27 21:16] MED LIST changes: +PRAVASTATIN SOD20 MG PO
[2018-01-27 21:19] VITALS: BP 147/85
[2018-01-27 21:52] LABS: BASO # 0.1 10*3/uL (0.0-0.1); BASO % 0.8 % (0.0-1.0); EOS # 0.3 10*3/uL (0.0-0.4); HEMATOCRIT 40.3 % (42.0-52.0); HEMOGLOBIN 12.4 g/dl (14.0-18.0); LYMPH # 1.2 10*3/uL (1.3-4.4); LYMPH % 13.2 % (27.0-41.0); MEAN CELL VOLUME 77.2 fl (80.0-94.0); MEAN CORPUSCULAR HGB 23.8 pg (27.0-31.0); MEAN CORPUSCULAR HGB CONC 30.8 g/dl (33.0-37.0); MONO # 0.7 10*3/uL (0.1-1.0); MONO % 8.1 % (3.0-9.0); NEUT # 6.7 10*3/uL (2.3-7.9); NEUT % 74.7 % (47.0-73.0); PLATELET COUNT AUTOMATED 195 10*3/uL (130-400); RED BLOOD COUNT 5.22 10*6/uL (4.50-5.90); RED CELL DISTRI WIDTH 21.2 % (0-14.5); WHITE BLOOD COUNT 8.9 10*3/uL (4.8-10.8)
[2018-01-27 22:03] LABS: ACT PARTIAL THROMBO TIME 27.8 SECONDS (20.8-31.5); INTERNATIONAL NORM RATIO 1.1 (2.0-3.5)
[2018-01-27 22:08] LABS: ALBUMIN 2.8 gm/dl (3.1-4.5); BUN 11 mg/dl (7-24); CHLORIDE 107 mmol/L (98-107); CREATININE 0.94 mg/dL (0.70-1.30); LIPASE 917 U/L (73-393); POTASSIUM 3.8 mmol/L (3.5-5.1); SGOT/AST 148 IU/L (3-35); SGPT/ALT 164 U/L (12-78); SODIUM 142 mmol/L (136-145)
[2018-01-27 22:20] LABS: ALKALINE PHOSPHATASE 1421 U/L (45-117)
[2018-01-27 22:30] VITALS: BP 151/73
[2018-01-28] VITALS: BP 141/75
[2018-01-28 01:01] VITALS: BP 141/75
[2018-01-28 06:36] LABS: HEMOGLOBIN 12.3 g/dl (14.0-18.0); MEAN CELL VOLUME 77.7 fl (80.0-94.0); MEAN CORPUSCULAR HGB 23.9 pg (27.0-31.0); MEAN CORPUSCULAR HGB CONC 30.8 g/dl (33.0-37.0); PLATELET COUNT AUTOMATED 176 10*3/uL (130-400); RED BLOOD COUNT 5.15 10*6/uL (4.50-5.90); RED CELL DISTRI WIDTH 21.2 % (0-14.5); WHITE BLOOD COUNT 7.8 10*3/uL (4.8-10.8)
[2018-01-28 07:09] LABS: ALBUMIN 2.7 gm/dl (3.1-4.5); BUN 10 mg/dl (7-24); CHLORIDE 109 mmol/L (98-107); CHOLESTEROL 94 mg/dL (<200); PHOSPHOROUS 2.7 mg/dL (2.5-4.9); POTASSIUM 3.5 mmol/L (3.5-5.1); SODIUM 143 mmol/L (136-145); TOTAL PROTEIN 6.5 gm/dL (6.4-8.2); TRIGLYCERIDES 118 mg/dl (<150); VLDL CHOLESTEROL 24 mg/dL (6-40)
[2018-01-28 07:16] LABS: BASOPHILS 1 % (0-1); PLATELET SUFFICIENCY NORMAL (NORMAL); TOTAL CELLS COUNTED 100 #CELLS
[2018-01-28 07:17] LABS: BURR CELLS MODERATE; MICROCYTOSIS SLIGHT
[2018-01-28 07:22] LABS: CREATININE 0.63 mg/dL (0.70-1.30); FREE T4 1.23 ng/dl (0.76-1.46); HDL CHOLESTEROL 22 mg/dl (40-60); LDL CHOLESTEROL 48 mg/dL (9-159); PREALBUMIN 13 mg/dl (20-40); SGOT/AST 142 IU/L (3-35); SGPT/ALT 152 U/L (12-78)
[2018-01-28 07:24] LABS: ALKALINE PHOSPHATASE 1334 U/L (45-117)
[2018-01-28 08:00] VITALS: BP 144/58
[2018-01-28 10:25] LABS: VITAMIN D, 25-HYDROXY 35.2 ng/mL (30-100)
[2018-01-28 12:00] VITALS: BP 147/63
[2018-01-28 16:00] VITALS: BP 164/78
[2018-01-28 20:00] VITALS: BP 153/78
[2018-01-29] VITALS: BP 149/73
[2018-01-29 06:17] LABS: HEMATOCRIT 39.8 % (42.0-52.0); HEMOGLOBIN 12.4 g/dl (14.0-18.0); MEAN CELL VOLUME 77.6 fl (80.0-94.0); MEAN CORPUSCULAR HGB 24.2 pg (27.0-31.0); MEAN CORPUSCULAR HGB CONC 31.2 g/dl (33.0-37.0); PLATELET COUNT AUTOMATED 170 10*3/uL (130-400); RED BLOOD COUNT 5.13 10*6/uL (4.50-5.90); RED CELL DISTRI WIDTH 21.5 % (0-14.5); WHITE BLOOD COUNT 7.4 10*3/uL (4.8-10.8)
[2018-01-29 06:48] LABS: CHLORIDE 108 mmol/L (98-107); POTASSIUM 3.4 mmol/L (3.5-5.1); SODIUM 144 mmol/L (136-145)
[2018-01-29 07:03] LABS: BASOPHILS 1 % (0-1); MICROCYTOSIS SLIGHT; PLATELET SUFFICIENCY NORMAL (NORMAL); SCHISTOCYTES FEW; TARGET CELLS FEW; TOTAL CELLS COUNTED 94 #CELLS
[2018-01-29 07:06] LABS: ALBUMIN 2.6 gm/dl (3.1-4.5); BUN 6 mg/dl (7-24); CREATININE 0.58 mg/dL (0.70-1.30); LIPASE 912 U/L (73-393); SGOT/AST 118 IU/L (3-35); SGPT/ALT 137 U/L (12-78); TOTAL PROTEIN 6.4 gm/dL (6.4-8.2)
[2018-01-29 07:07] LABS: ALKALINE PHOSPHATASE 1214 U/L (45-117)
[2018-01-29 08:00] VITALS: BP 156/90
[2018-01-29 12:00] VITALS: BP 135/82
[2018-01-29 16:00] VITALS: BP 160/90
[2018-01-29 20:00] VITALS: BP 157/85
[2018-01-30] VITALS (9 sets, daily range): BP systolic 122–161; BP diastolic 66–98
[2018-01-30 07:06] LABS: ALBUMIN 2.8 gm/dl (3.1-4.5); BUN 7 mg/dl (7-24); CHLORIDE 106 mmol/L (98-107); CREATININE 0.61 mg/dL (0.70-1.30); PHOSPHOROUS 2.1 mg/dL (2.5-4.9); POTASSIUM 3.4 mmol/L (3.5-5.1); SGOT/AST 117 IU/L (3-35); SGPT/ALT 145 U/L (12-78); SODIUM 142 mmol/L (136-145); TOTAL PROTEIN 7.1 gm/dL (6.4-8.2)
[2018-01-30 07:17] LABS: ALKALINE PHOSPHATASE 1238 U/L (45-117)
[2018-01-31] VITALS: BP 150/84
[2018-01-31 06:56] LABS: ALBUMIN 2.5 gm/dl (3.1-4.5); BILIRUBIN, DIRECT 2.2 mg/dL (0.0-0.2); BUN 11 mg/dl (7-24); CHLORIDE 109 mmol/L (98-107); CREATININE 0.71 mg/dL (0.70-1.30); LIPASE 341 U/L (73-393); PHOSPHOROUS 2.9 mg/dL (2.5-4.9); SGOT/AST 168 IU/L (3-35); SGPT/ALT 176 U/L (12-78); SODIUM 142 mmol/L (136-145); TOTAL PROTEIN 6.4 gm/dL (6.4-8.2)
[2018-01-31 07:07] LABS: ALKALINE PHOSPHATASE 1229 U/L (45-117)
[2018-01-31 08:00] VITALS: BP 149/64
[2018-01-31 12:00] VITALS: BP 119/52
[2018-01-31 16:00] VITALS: BP 152/67
[2018-01-31 20:00] VITALS: BP 142/71
[2018-02-01] VITALS: BP 143/69
[2018-02-01 07:04] LABS: ALBUMIN 2.9 gm/dl (3.1-4.5); BUN 11 mg/dl (7-24); CHLORIDE 110 mmol/L (98-107); POTASSIUM 3.6 mmol/L (3.5-5.1); SODIUM 145 mmol/L (136-145)
[2018-02-01 07:20] LABS: CREATININE 0.75 mg/dL (0.70-1.30); SGOT/AST 196 IU/L (3-35); SGPT/ALT 215 U/L (12-78); TOTAL PROTEIN 6.5 gm/dL (6.4-8.2)
[2018-02-01 07:21] LABS: ALKALINE PHOSPHATASE 1124 U/L (45-117)
[2018-02-01 08:00] VITALS: BP 134/57
[2018-02-01 12:00] VITALS: BP 142/79
[2018-02-01 16:00] VITALS: BP 142/62
[2018-02-01 20:00] VITALS: BP 176/82
[2018-02-02] VITALS: BP 152/79
[2018-02-02 07:00] LABS: ALBUMIN 2.6 gm/dl (3.1-4.5); BILIRUBIN, DIRECT 1.4 mg/dL (0.0-0.2); TOTAL PROTEIN 6.3 gm/dL (6.4-8.2)
[2018-02-02 08:00] VITALS: BP 160/77
[2018-02-02 12:00] VITALS: BP 152/96
[2018-02-02 16:00] VITALS: BP 145/80
[2018-02-02 20:00] VITALS: BP 159/89
[2018-02-03] VITALS (8 sets, daily range): BP systolic 121–184; BP diastolic 67–110
[2018-02-03 07:29] LABS: HEMATOCRIT 39.5 % (42.0-52.0); HEMOGLOBIN 12.3 g/dl (14.0-18.0); MEAN CELL VOLUME 77.6 fl (80.0-94.0); MEAN CORPUSCULAR HGB 24.2 pg (27.0-31.0); MEAN CORPUSCULAR HGB CONC 31.1 g/dl (33.0-37.0); PLATELET COUNT AUTOMATED 158 10*3/uL (130-400); RED BLOOD COUNT 5.09 10*6/uL (4.50-5.90); RED CELL DISTRI WIDTH 21.5 % (0-14.5); WHITE BLOOD COUNT 8.5 10*3/uL (4.8-10.8)
[2018-02-03 07:52] LABS: BASOPHILS 1 % (0-1); TOTAL CELLS COUNTED 100 #CELLS
[2018-02-03 07:53] LABS: MICROCYTOSIS SLIGHT; PLATELET SUFFICIENCY NORMAL (NORMAL); POLYCHROMASIA SLIGHT; TARGET CELLS FEW
[2018-02-03 07:57] LABS: CHLORIDE 104 mmol/L (98-107); POTASSIUM 3.1 mmol/L (3.5-5.1); SODIUM 142 mmol/L (136-145)
[2018-02-03 08:17] LABS: ALBUMIN 2.6 gm/dl (3.1-4.5); ALKALINE PHOSPHATASE 1015 U/L (45-117); BUN 7 mg/dl (7-24); CREATININE 0.62 mg/dL (0.70-1.30); LIPASE 604 U/L (73-393); SGOT/AST 142 IU/L (3-35); SGPT/ALT 214 U/L (12-78); TOTAL PROTEIN 6.3 gm/dL (6.4-8.2)
[2018-02-04] VITALS: BP 138/79
[2018-02-04 08:00] VITALS: BP 122/88
[2018-02-04 08:37] LABS: ALBUMIN 2.5 gm/dl (3.1-4.5); BUN 15 mg/dl (7-24); CHLORIDE 104 mmol/L (98-107); CREATININE 0.72 mg/dL (0.70-1.30); LIPASE 214 U/L (73-393); POTASSIUM 3.9 mmol/L (3.5-5.1); SGOT/AST 100 IU/L (3-35); SGPT/ALT 178 U/L (12-78); SODIUM 141 mmol/L (136-145); TOTAL PROTEIN 6.3 gm/dL (6.4-8.2)
[2018-02-04 08:48] LABS: ALKALINE PHOSPHATASE 947 U/L (45-117)
[2018-02-04 12:00] VITALS: BP 122/78
[2018-02-04 16:26] VITALS: BP 156/82
[2018-02-04 20:00] VITALS: BP 154/62
[2018-02-05] VITALS: BP 168/71
[2018-02-05 07:07] LABS: ALBUMIN 2.6 gm/dl (3.1-4.5); ALKALINE PHOSPHATASE 912 U/L (45-117); BUN 12 mg/dl (7-24); CHLORIDE 106 mmol/L (98-107); CREATININE 0.64 mg/dL (0.70-1.30); POTASSIUM 3.6 mmol/L (3.5-5.1); SGOT/AST 110 IU/L (3-35); SGPT/ALT 180 U/L (12-78); SODIUM 144 mmol/L (136-145); TOTAL PROTEIN 6.2 gm/dL (6.4-8.2)
[2018-02-05 08:00] VITALS: BP 172/100
[2018-02-05 12:00] VITALS: BP 155/78
[2018-02-05 16:00] VITALS: BP 126/80
[2018-02-05 20:00] VITALS: BP 153/70
[2018-02-06] VITALS: BP 130/83
[2018-02-06 08:00] VITALS: BP 168/98
[2018-02-06 12:00] VITALS: BP 147/74
[2018-02-06 16:00] VITALS: BP 147/79
== END 2018-02-06 18:09 | disposition home or self-care (01) | DRG 444 ==
LOC: ED 21:16 → 5E 21:36 → EDHOLD 21:36 → 5E 21:57
PROVIDERS: Emergency Medicine Emergency Medical Services; Internal Medicine; Internal Medicine Gastroenterology; Student in an Organized Health Care Education/Training Program
PROC: 0FB98ZX Excision of Common Bile Duct, Via Natural or Artificial Opening Endoscopic, Diagnostic (ICD-10-PCS; principal; 2018-01-30)
PROC: 0F798DZ Dilation of Common Bile Duct with Intraluminal Device, Via Natural or Artificial Opening Endoscopic (ICD-10-PCS; principal; 2018-01-30)
PROC: 0FPB8DZ Removal of Intraluminal Device from Hepatobiliary Duct, Via Natural or Artificial Opening Endoscopic (ICD-10-PCS; 2018-02-03)
PROC: 0F798DZ Dilation of Common Bile Duct with Intraluminal Device, Via Natural or Artificial Opening Endoscopic (ICD-10-PCS; 2018-02-03)
DX: K80.31 Calculus of bile duct with cholangitis, unspecified, with obstruction (principal); K85.10 Biliary acute pancreatitis without necrosis or infection; E43 Unspecified severe protein-calorie malnutrition; D68.59 Other primary thrombophilia; I48.91 Unspecified atrial fibrillation; E83.41 Hypermagnesemia; F33.9 Major depressive disorder, recurrent, unspecified; J44.9 Chronic obstructive pulmonary disease, unspecified; Z68.1 Body mass index [BMI] 19.9 or less, adult; T85.590A Other mechanical complication of bile duct prosthesis, initial encounter; K83.8 Other specified diseases of biliary tract; K82.8 Other specified diseases of gallbladder; I10 Essential (primary) hypertension; K57.10 Diverticulosis of small intestine without perforation or abscess without bleeding; E78.5 Hyperlipidemia, unspecified; K21.9 Gastro-esophageal reflux disease without esophagitis; D50.9 Iron deficiency anemia, unspecified; R73.03 Prediabetes; Y83.8 Other surgical procedures as the cause of abnormal reaction of the patient, or of later complication, without mention of misadventure at the time of the procedure; Y92.89 Other specified places as the place of occurrence of the external cause; Z87.891 Personal history of nicotine dependence; Z86.73 Personal history of transient ischemic attack (TIA), and cerebral infarction without residual deficits; Z82.49 Family history of ischemic heart disease and other diseases of the circulatory system; Z80.9 Family history of malignant neoplasm, unspecified; Z91.041 Radiographic dye allergy status; Z79.899 Other long term (current) drug therapy

== ENCOUNTER 2019-07-08 10:06 | Inpatient (IN) | payer MEDICARE ==
[~2019-07-08] VITALS: Ht 170.1 cm; Wt 55.4 kg
--- NOTE | ~2019-07-08 | PR ---
[place], [place] PROGRESS NOTE NAME: LIZET BOYCE [facility] #: [id number] UNIT #: [id number] ROOM: 523 DOCTOR: EVIN BOX MD,SANJAY BIRTHDATE: [birth year] DOS: 07/14/2019 SUBJECTIVE: The patient was noted comfortable at this time, resting in bed without any acute distress, had not reported any symptoms of fever, chills, coughing or any sputum expectoration or any abdominal pain. OBJECTIVE: VITAL SIGNS: For the patient, which are recorded showed the temperature noted as normal. The respiratory rate 18, heart rate 82, blood pressure 148/70. The pulse oxygen saturation recorded at rest on room air as 95% saturation. HEENT: Examination shows head was atraumatic. Eyes nonicterus. NECK: Supple. CARDIOVASCULAR: S1, S2 audible. LUNGS: Noted without any wheezing or crackles this morning. ABDOMEN: Soft, nontender. Bowel sounds present. EXTREMITIES: No new change. LABORATORY DATA: CBC; WBC count 15.7, hemoglobin 10.9, platelet count normal. ERV still noted severely elevated. Alkaline phosphatase 1201. IMPRESSION: 1. Obstructive jaundice, acute cholangitis. 2. Bilateral pulmonary nodules. 3. Chronic obstructive pulmonary disease history. PLAN OF MANAGEMENT: No changes from the pulmonary standpoint. Continue current therapy, plan of management and follow the recommendation GI services. Continue bronchodilators. Usual care. SANJAY CLEARY MD CM:PNTRANS 40 SANJAY BOX MD 07/14/191938 interface
--- NOTE | ~2019-07-08 | CON ---
[place], [place] REPORT OF CONSULTATION NAME: LIZET BOYCE REDWOOD LLCT #: [id number] UNIT #: [id number] ROOM: 523 DOCTOR: SANJAY HESTER MD BIRTHDATE: [birth year] DOS: 07/09/2019 PULMONARY CONSULTATION, EVALUATION AND MANAGEMENT CONSULTATION REQUESTED BY: Stephanie Allen RN AMUSEMENT [employer]IC REASON FOR CONSULTATION: For assessment of pulmonary nodules. HISTORY OF PRESENT ILLNESS: This is an 83-year-old white male patient who has been known to me from the past assessment as well. He had been admitted to the hospital on 12/2018. During this hospitalization, has been treated for VRE bacteremia with acute cholangitis and also has been noted with pulmonary nodules during that admission. He has been admitted to the hospital this time on 07/08/2019. The patient was admitted to the hospital previously in 12/2018. The patient treated for bacteremia, VRE and has a previous common bile duct, which were removed source of bacteremia. At that time, the patient has been noted with bilateral pulmonary nodule. Further assessment, has not been done or completed. [facility] He has been brought to the hospital by the family members. The patient has been noted with lying in the floor and was noted change of metastatic could not recall the events. General weakness and fatigue was stated by the patient. 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 He has been denying any symptoms of coughing, chest pain or hemoptysis. Denies symptoms of wheezing or acute shortness of breath this morning of assessment. History is noted limited at the present time. REVIEW OF SYSTEMS: Cannot be accurately performed for this; however, the limited review is as follows: CONSTITUTIONAL: Denies symptoms of fever or chills. Still complaining of general weakness, stating somewhat better previously. EYES: Denies burning, redness or discharge. EAR, NOSE, THROAT SYMPTOMS: No sore throat, postnasal drainage or epistaxis. CARDIOVASCULAR: Denies anginal pain, edema, pain of the lower extremities. GASTROINTESTINAL: Denies dysphagia, nausea, vomiting, diarrhea, abdominal pain, hematemesis, melena, or hematochezia. SKIN: Denies abnormal lesions or rashes. 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 Remaining systems were reviewed with the patient, they were noted all negative. PAST MEDICAL HISTORY: 1. COPD. 2. Permanent atrial fibrillation. 3. Diverticulosis. 4. Ascending cholangitis with papillotomy patient insertion common bile duct subsequently removed in 12/2018. The acute event noted of cholangitis recurred in 02/2018. 5. Hypercoagulable status, details were unknown. 6. Past history of cerebrovascular accident as well. [place], [place] REPORT OF CONSULTATION NAME: LIZET BOYCE UNIT #: [id number] ROOM: 523 DOCTOR: EVIN BOX MD,SANJAY BIRTHDATE: [birth year] 7. History of gastroesophageal reflux. 8. Essential hypertension. 9. Hyperlipidemia. 10. Vitamin D deficiency. PAST SURGICAL HISTORY: 1. Noted with ORIF of the right hip. 2. ERCP with common bile duct stent insertion papillotomy and then subsequent removal. SOCIAL HISTORY: The patient is single. Does not have any children. Does not have any history of alcohol use or illicit drug use known. Tobacco use noted since teenager, 2 packs of cigarettes per day that has been discontinued since 2017. The patient used to drink alcohol, which has been discontinued 20 years ago. FAMILY HISTORY: His father at age 9090 years old, complication of coronary artery disease. Mother at age of 9494 years old from old age. CURRENT MEDICATIONS: Which has been administered for this hospitalization were noted as sertraline, digoxin, Cardizem CD, ferrous sulfate, omeprazole, DuoNeb, and some other p.r.n. meds. DRUG ALLERGIES: ALLERGY TO THE IVP DYE. PHYSICAL EXAMINATION: GENERAL: This is an 83-year-old elderly male patient currently comfortably resting on the bed without any distress, cooperative with examination, height of 5 feet 7 inches, weight 122 pounds, BMI 19.1. VITAL SIGNS: For the patient recorded as a normal temperature since hospitalization, respiratory rate 18-20, heart rate of 85-110, blood pressure at midnight recorded 141/90. This morning, blood pressure was not available. Previous blood pressure since admission noted all normal range. HEENT: Examination shows head was atraumatic. Eyes nonicterus. NECK: Supple. CARDIOVASCULAR: S1, S2 audible. LUNGS: There were no wheeze or crackles at the present. Breaths are noted mildly diminished bilaterally. ABDOMEN: Soft, nontender. Bowel sounds present. MUSCULOSKELETAL: Noted without any acute deformities. CENTRAL NERVOUS SYSTEM: Right hemiparesis. MUSCULOSKELETAL: Mild kyphosis. VISIBLE SKIN: No lesions or rashes. LABORATORY DATA: The patient's CBC that was done on 07/08/2019 WBC count 31.4, hemoglobin 10.8, platelet count was normal, 95% neutrophils were noted in the differential. PT/PTT yesterday on admission was normal. Lactic acid normal yesterday 1.1. CMP that was done of 07/08/2019 normal BUN and creatinine, sodium 127, chloride of 94. Alkaline phosphatase was elevated at 1092. AST mildly elevated at 65, normal ALT. Albumin is 2.0. Total protein 5.9, total [place], [place] REPORT OF CONSULTATION NAME: LIZET BOYCE UNIT #: [id number] ROOM: 523 DOCTOR: SANJAY HESTER MD BIRTHDATE: [birth year] bilirubin of 5.8. Alcohol level noted less than 3. The chest x-ray done on admission does not show any acute pulmonary infiltration or other abnormality, which were visible. CT scan of the abdomen and pelvis was done on 07/08/2019. The finding stated by the radiologist report as findings suspicious for acute cholecystitis. Biliary dilatation was noted new as compared with the previous study. Pulmonary nodule noted in the lower lungs has a CT scan of the chest, which was done Dedicated without contrast 07/2019 was personally reviewed, shows nodule with central cavitation noted in the left upper, right lower lobe and small nodule in the left fissure. The right lobe nodule measurement was noted 2 cm in the size. The left upper lung nodule measured at 1.5-0.9 cm in size. IMAGING DATA: CT scan of the chest was compared to the one which was done during the admission in 12/2018 was noted as pulmonary nodules at this time. There was consolidation noted in the left upper lobe that seemed to be improved. IMPRESSION: 1. The patient will be currently admitted to the hospital with finding suggestive of acute sepsis patient acute cholangitis/cholecystitis with leukocytosis, general weakness and fatigue as well. 2. Obstructive jaundice related to current acute GI problems. 3. Pulmonary nodule with some cavitation area, which has been noted previously. Possibility of malignant process cannot be excluded versus chronic localized infection in those areas. 4. Previous history of nicotine use as well. There was no finding consistent with acute COPD. Past history of tobacco use suggestive of underlying diagnosis of COPD, which has not been treated in the past. Other medical illness noted in the past history questions. PLAN OF MANAGEMENT: The patient will be started on the meropenem for similar antibiotics for the medical management of acute cholangitis on cholecystitis. The patient will be also recommended consultation by the GI services as all the pulmonary nodule was interested by the patient and family members needs to be done as an outpatient to exclude malignant process further appropriate assessment. Continuation of other therapy, plan of management, care plan treatment as ongoing. Supportive care. Usual medical management therapy, plan of care and treatments. Thanks for allowing me to participate in the care of this patient. [place], [place] REPORT OF CONSULTATION NAME: LIZET BOYCE UNIT #: [id number] ROOM: 523 DOCTOR: SANJAY HESTER MD BIRTHDATE: [birth year] SANJAY CLEARY MD CM:CONSTR:REPORT OF CONSULTATION 1116 07/09/19 1556 interface
--- NOTE | ~2019-07-08 | PR ---
[place], [place] PROGRESS NOTE [id number] UNIT #: [id number] ROOM: 420 DOCTOR: EVIN BOX MD,SANJAY BIRTHDATE: [birth year] DOS: 07/20/2019 PULMONARY PROGRESS NOTE SUBJECTIVE: The patient was seen on 07/20/2019, has been noted comfortable at this time. Transferred the patient from ICU to telemetry bed. There were no symptoms of chest pain reported. There was no cough or wheezing. There was no chest pain. OBJECTIVE: VITAL SIGNS: Normal temperature, respiratory rate 20, heart rate 88, blood pressure 170/84. The pulse oxygen saturation recorded on 2 liters nasal cannula 97% saturation. HEENT: Examination shows head was atraumatic. Eyes nonicterus. NECK: Supple. CARDIOVASCULAR SYSTEM: S1, S2 audible. LUNGS: Without any wheeze or crackles. ABDOMEN: Soft, nontender. Bowel sounds present. EXTREMITIES: No new change. IMPRESSION: 1. The patient with pulmonary nodules, which has been known. 2. Leukocytosis, which has noted significant, yesterday labs has been decreased. The WBC count today was noted as 18,000, yesterday was noted more than 30,000. 3. The patient with atrial fibrillation noted current controlled range. PLAN OF THERAPY: No changes in plan of management at this time. Continue the patient's current therapy as in progress. Usual care, other supportive plan of management, care plan of treatment. SANJAY CLEARY MD CM:PNTRANS [phone] SANJAY BOX MD 07/20/19 2252 interface
--- NOTE | ~2019-07-08 | PR ---
[place], [place] PROGRESS NOTE NAME: LIZET BOYCE UNIT #: [id number] ROOM: 523 DOCTOR: MELANIE KAY MD BIRTHDATE: [birth year] DOS: 07/14/2019 This is the addendum to the progress note done by the nurse practitioner, Jacki Mueller. I agree with the assessment and plan, reviewed the labs and imaging, made the necessary changes in the note. Melanie Kay MD CM:PNTRANS [id number] MELANIE KAY MD 07/18/19 0024 interface
--- NOTE | ~2019-07-08 | PR ---
[place], [place] PROGRESS NOTE [id number] UNIT #: [id number] ROOM: 523 DOCTOR: EVIN BOX MD,SANJAY BIRTHDATE: [birth year] DOS: 07/12/2019 PULMONARY PROGRESS NOTE SUBJECTIVE: He has been noted comfortable at this time without any acute respiratory distress. The patient does have mild cough and sputum expectoration. Denies symptoms of acute shortness of breath, chest pain or hemoptysis. He has an ERCP completed yesterday. OBJECTIVE: VITAL SIGNS: Normal temperature, respiratory rate 16, heart rate 101 and blood pressure 144/51. Pulse oxygen saturation of 96% saturation recorded. HEENT: Examination shows head was atraumatic. Eyes nonicterus. NECK: Supple. CARDIOVASCULAR: S1, S2 audible. LUNGS: Noted without any wheezing or crackles this morning. ABDOMEN: Soft, nontender. Bowel sounds present. EXTREMITIES: No new change. IMPRESSION: 1. Pulmonary nodule, at this time malignancy or chronic infection remains in consideration. 2. The patient with obstructive jaundice, which has been currently treated with the ERCP. PLAN OF MANAGEMENT: No changes in plan of care at this time will be recommended. Continue current therapy as in progress. Supportive care. Continue antibiotics. SANJAY CLEARY MD CM:PNTRANS [phone] SANJAY BOX MD 07/12/19 1218 interface
--- NOTE | ~2019-07-08 | EKG ---
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
--- NOTE | ~2019-07-08 | PR ---
[place], [place] PROGRESS NOTE NAME: LIZET BOYCE UNIT #: [id number] ROOM: 420 DOCTOR: SANJAY EHSTER MD BIRTHDATE: [birth year] DOS: 07/19/2019 SUBJECTIVE: The patient has been noted atrial fibrillation with rapid ventricular response and has been transferred to Intensive Care Unit, was started on intravenous Cardizem drip that was discontinued 2:00 a.m. this morning. He has been noted heart rate less than 100 this morning, noted fully awake and alert at this time without any distress. The patient was not noted symptoms of headache or diplopia. Does not seem to have signs of confusions. REVIEW OF SYSTEMS: Otherwise limited noted negative. OBJECTIVE: VITAL SIGNS: For the patient normal temperature, respiratory rate 18, heart rate 68, blood pressure 120/52. Pulse oxygen saturation on 2 liters nasal cannula 99% saturation recorded. HEENT: Examination shows head was atraumatic. Eyes nonicterus. NECK: Supple. CARDIOVASCULAR: S1, S2 audible. LUNGS: The patient was noted without any wheeze or crackles at the present time. ABDOMEN: Soft, nontender. Bowel sounds present. EXTREMITIES: No new change. VISIBLE SKIN: No lesions or rashes. MUSCULOSKELETAL: Without acute deformities. CENTRAL NERVOUS SYSTEM: The patient appeared to be generally intact. LABORATORY DATA: CBC today: WBC count 35.4, hemoglobin 8.5, platelet count normal. BMP this morning, normal BUN and creatinine. Potassium 3.4. IMPRESSION: 1. Marked leukocytosis noted etiology of that was unclear. 2. Acute bilateral pulmonary nodules as well. 3. Atrial fibrillation with rapid ventricular response noted with improved heart rate less than 100. PLAN OF MANAGEMENT: No changes from the pulmonary standpoint, I ordered a chest x-ray to assess the leukocytosis, etiology. Continuation of other therapy, plan of management at the present time with other treatment plan for the patient to be changed based on progression of his illness. [place], [place] PROGRESS NOTE NAME: LIZET BOYCE UNIT #: [id number] ROOM: 420 DOCTOR: SANJAY HESTER MD BIRTHDATE: [birth year] SANJAY CLEARY MD CM:PNTRANS [phone] SANJAY BOX MD 07/19/19 1410 interface
--- NOTE | ~2019-07-08 | EKG ---
[place], [place] ELECTROCARDIOGRAM REPORT NAME: LIZET BOYCE UNIT #: [id number] ROOM: [facility] DOCTOR: KOBE DRAFT REPORT BIRTHDATE: [address] [facility] Test Date: 2019-07-18 Test Time: 18:24:49 Pat Name: LIZET BOYCE Department: Room: [facility] Gender: M Director Of Religious Life: : 1935 Requested By: ROCÍO DIAZ Order Number: [id number] Reading MD: Zahra Mueller MD Measurements Intervals [place] Rate: 133 P: [place]: QRS: 20 QRSD: 90 T: 71 QT: 310 QTc: 462 Interpretive Statements Atrial fibrillation Low voltage, extremity leads Abnormal R-wave progression, late transition ST depression, probably rate related Artifact in lead(s) I,II,III,aVR,aVL,aVF,V1,V5 Compared to ECG 07/08/2019 10:39:36 ST (T wave) deviation now present Myocardial infarct finding no longer present Electronically Signed On 07-19-2019 8:09:12 PST by Zahra Mueller MD CM:EKGRPT:ELECTROCARDIOGRAM REPORT [id number] ROCÍO GARDUNO DRAFT REPORT ROCÍO DIAZ DO
--- NOTE | ~2019-07-08 | EKG ---
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
--- NOTE | ~2019-07-08 | PR ---
[place], [place] PROGRESS NOTE NAME: [id number] UNIT #: [id number] ROOM: 523 DOCTOR: EVIN BOX MD,SANJAY BIRTHDATE: [birth year] DOS: 07/18/2019 SUBJECTIVE: The patient was noted comfortable at this time, sitting on the chair this morning, has not been reporting any symptoms of coughing, sputum expectoration, still awaiting acceptance and transferred to long-term facility. No acute respiratory complaints noted this morning. OBJECTIVE: VITAL SIGNS: Normal temperature, respiratory rate 18, heart rate 89, blood pressure 154/85. Pulse oxygen saturation rest on room air 93% saturation recorded. HEENT: Examination shows head was atraumatic. Eyes nonicterus. NECK: Supple. CARDIOVASCULAR: S1, S2 audible. LUNGS: Without any wheezing or crackles. ABDOMEN: Soft, nontender. Bowel sounds present. EXTREMITIES: No new change. LABORATORY DATA: The biopsy on the ampulla, which was done on the 07/12/2019 was reported with modest , rule out underlying invasive malignancy. CBC: WBC count 17.8. CMP: BUN normal and creatinine was normal. IMPRESSION: 1. Bilateral pulmonary nodule. 2. Possibility of ampulla was suggested with the biopsy done by Dr. Martin. 3. Resolving acute cholangitis. PLAN OF MANAGEMENT: No changes from the pulmonary standpoint. Continue current plan of management at this time in progress. Usual care, other supportive plan of therapy, and care plan for treatment. SANJAY CLEARY MD CM:PNTRANS [phone] SANJAY BOX MD 07/18/19 1425 interface
--- NOTE | ~2019-07-08 | PR ---
[place], [place] PROGRESS NOTE NAME: LIZET BOYCE UNIT #: [id number] ROOM: 523 DOCTOR: EVIN BOX MD,SANJAY BIRTHDATE: [birth year] DOS: 07/15/2019 SUBJECTIVE: The patient noted comfortable at this time, resting in the bed this morning of assessment. He has not been noted any ongoing respiratory complaints of coughing, sputum expectoration. OBJECTIVE: VITAL SIGNS: For the patient, which are recorded showed the temperature noted as normal, the respiratory rate 16, heart rate of 72, blood pressure 126/62. Pulse ox saturation at rest on room air is 94% saturation. HEENT: Examination shows head was atraumatic. Eyes nonicterus. NECK: Supple. CARDIOVASCULAR: S1, S2 audible. LUNGS: Without any wheeze or crackles. ABDOMEN: Soft, nontender. Bowel sounds present. EXTREMITIES: No new change. IMPRESSION AND PLAN: The patient with stable respiratory status was noted at the present time and pulmonary nodule as well. Overall debility, which has been stable. Referring pending for [facility]. SANJAY CLEARY MD CM:PNTRANS [phone] SANJAY BOX MD 07/15/19 1524 interface
--- NOTE | ~2019-07-08 | PR ---
[place], [place] PROGRESS NOTE NAME: LIZET BOYCE [facility] #: [id number] UNIT #: [id number] ROOM: 523 DOCTOR: EVIN BOX MD,SANJAY BIRTHDATE: [birth year] DOS: 07/11/2019 SUBJECTIVE: He had just completed ERCP this afternoon. He has been noted comfortable at this time. There were symptoms of coughing, sputum expectoration, chest pain reported by the patient. He was continuing antibiotic, the patient remains afebrile. OBJECTIVE: VITAL SIGNS: This afternoon normal temperature, respiratory rate 24, pulse 83, and ____. The pulse oxygen saturation 96% saturation at rest on room air. HEENT: Examination shows head was atraumatic. Eyes nonicterus. NECK: Supple. CARDIOVASCULAR: S1, S2 audible. LUNGS: Noted without any wheezing or crackles. ABDOMEN: Soft, nontender. Bowel sounds present. EXTREMITIES: No new change. IMPRESSION: Stable, bilateral pulmonary nodules, obstructive jaundice, status post ERCP done this morning, appeared to be comfortable. PLAN OF MANAGEMENT: No changes in plan of management. Continue current plan of management at this time as in progress. Usual care, other supportive plan of treatments. Supportive care. SANJAY CLEARY MD CM:PNTRANS 56 [phone] SANJAY BOX MD 07/12/19106 interface
--- NOTE | ~2019-07-08 | EKG ---
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
--- NOTE | ~2019-07-08 | PR ---
[place], [place] PROGRESS NOTE NAME: LIZET BOYCE UNIT #: [id number] ROOM: 523 DOCTOR: DENNIS LINDA BIRTHDATE: [birth year] DOS: 07/15/2019 SUBJECTIVE: The patient is an 83-year-old male who is being followed for cholecystitis and cholangitis. He is status post ERCP with biopsy. Pathology is pending. He had severe biliary and pancreatic ductal dilatation and hydropic gallbladder. Urine cultures have grown Citrobacter. He remains on Merrem. He is alert, responsive. Denies nausea, vomiting or diarrhea. No abdominal pain or pain elsewhere. No cough or shortness of breath. He has been afebrile. LABORATORY DATA: WBC 15.1, platelets 345, BUN 11, creatinine 0.72. AST 58, ALT 70, alkaline phosphatase 1016. Albumin 1.8. PHYSICAL EXAMINATION: VITAL SIGNS: Temperature 97.4, pulse 72, respirations 16, BP 149/80. GENERAL: An 83-year-old male, in no acute distress. HEAD, EYES, EARS, NOSE AND THROAT: Normocephalic, no thrush. LUNGS: Clear to auscultation bilaterally. Respirations even and unlabored. HEART: Regular rhythm. No murmur appreciated. ABDOMEN: Soft. Mild distention, nontender. EXTREMITIES: No lower extremity edema. Bilateral upper extremity dependent edema and flexion contractures of the right hand digits. SKIN: Warm, dry, free of rashes. ASSESSMENT: Cholecystitis and cholangitis as well as bacteriuria. PLAN: To continue Merrem, status post ERCP with biopsy, pathology pending. ADDENDUM I agree with the assessment and plan, reviewed the labs and imaging, made the necessary changes in the note. DECEMBER MADDI COLLINS [place], [place] PROGRESS NOTE NAME: LIZET BOYCE UNIT #: [id number] ROOM: 523 DOCTOR: DENNIS LINDA BIRTHDATE: [birth year] Melanie Kay MD CM:PNTRANS [phone] DECEMBER DENNIS [facility] 07/18/19 0230 interface
--- NOTE | ~2019-07-08 | EKG ---
[place], [place] ELECTROCARDIOGRAM REPORT NAME: LIZET BOYCE UNIT #: [id number] [facility] DOCTOR: KOBE DRAFT REPORT BIRTHDATE: [birth year] [facility] Test Date: 2019-07-19 Test Time: 09:29:20 Pat Name: LIZET BOYCE Department: Room: [place] [address] Gender: M Side Splitter: : 1935 Requested By: YUNG WALKER Order Number: [id number] Reading MD: Zahra Mueller MD Measurements Intervals [place] Rate: 68 P: [place]: QRS: 65 QRSD: 89 T: 54 QT: 413 QTc: 440 Interpretive Statements Atrial fibrillation Low voltage, extremity leads Compared to ECG 07/08/2019 10:39:36 Myocardial infarct finding no longer present Electronically Signed On 07-19-2019 8:10:16 PST by Zahra Mueller MD CM:EKGRPT:ELECTROCARDIOGRAM REPORT [id number] 0810 YUNG BULLOCK DRAFT REPORT YUNG WALKER
--- NOTE | ~2019-07-08 | EKG ---
[place], [place] ELECTROCARDIOGRAM REPORT NAME: LIZET BOYCE UNIT #: [id number] ROOM: 523 DOCTOR: KOBE DRAFT REPORT BIRTHDATE: [birth year] 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
--- NOTE | ~2019-07-08 | PR ---
[place], [place] PROGRESS NOTE NAME: LIZET BOYCE UNIT #: [id number] ROOM: 523 DOCTOR: DENNIS LINDA BIRTHDATE: [birth year] DOS: 07/14/2019 SUBJECTIVE: The patient is an 83-year-old male being followed for cholecystitis and cholangitis. He is status post ERCP with biopsy for a severe biliary and pancreatic ductal dilatation and a hydropic gallbladder. His urine cultures have grown Citrobacter. Blood cultures remained sterile. He remains on Merrem. He has been afebrile. Denies any pain. Denies nausea, vomiting or diarrhea. No cough or shortness of breath. No rash or itch. Feels fairly well. LABORATORY DATA: WBCs remain elevated at 15.7, platelets 315. Cultures as reviewed above. AST 71, ALT 81, total bilirubin 2.4, direct bilirubin 2.1, albumin 1.9. PHYSICAL EXAMINATION: VITAL SIGNS: Temperature 97.6, pulse 91, respirations 18, BP 139/71. GENERAL: An 83-year-old male, in no acute distress, sitting up in bed. HEAD, EYES, EARS, NOSE AND THROAT: Normocephalic, no thrush. Pupils equal, round, reactive to light. NECK: Supple. LUNGS: Clear to auscultation bilaterally. Respirations even and unlabored. HEART: Regular rhythm. No murmur appreciated. ABDOMEN: Soft, nontender, nondistended, positive bowel sounds. EXTREMITIES: No edema or deformity. Normal capillary refill. SKIN: Warm, dry, free of rashes. ASSESSMENT: Cholecystitis with cholangitis, asymptomatic bacteriuria with Citrobacter. PLAN: Continue Merrem. Follow up on biopsy from ERCP. DECEMBER MADDI COLLINS [place], [place] PROGRESS NOTE NAME: LIZET BOYCE UNIT #: [id number] ROOM: 523 DOCTOR: DENNIS LINDADECEMBER BIRTHDATE: [birth year] Melanie Malviya, MD CM:PNTRANS [phone] [id number] DENNIS [facility] 07/14/19 175 interface
--- NOTE | ~2019-07-08 | PR ---
[place], [place] PROGRESS NOTE [id number] UNIT #: [id number] ROOM: 523 DOCTOR: EVIN BOX MD,SANJAY BIRTHDATE: [birth year] DOS: 07/10/2019 PULMONARY PROGRESS NOTE SUBJECTIVE: The patient noted comfortable at this time, resting in the bed. The patient was not noted any distress this morning of assessment. ____ been coughing, shortness of breath and other symptoms noted. OBJECTIVE: VITAL SIGNS: Normal temperature, respiratory rate 22, heart rate 93, and blood pressure 133/67 recorded at midnight. This morning, blood pressure was not available. The pulse oxygen saturation at rest on room air was 94% saturation. HEENT: Examination shows head was atraumatic. Eyes nonicterus. NECK: Supple. CARDIOVASCULAR: S1, S2 audible. LUNGS: Noted without any wheeze or crackles at the present time. Breaths are noted [id number] decreased in the lungs bilaterally. ABDOMEN: Soft, nontender. Bowel sounds present. EXTREMITIES: The patient was noted without any acute edema. IMPRESSION: 1. The patient with acute cholangitis with obstructive jaundice, was also noted. 2. Bilateral pulmonary nodule, which has been known previously. The workup has been done for this patient. Possible malignancy, chronic infection would be considered and excluded. PLAN OF MANAGEMENT: No changes in plan of care at this time. Follow the GI recommendation. Continuation of the current other treatment plan of care. In case of any new respiratory symptoms develop, order the medications accordingly. SANJAY CLEARY MD CM:PNTRANS [phone] SANJAY BOX MD 07/10/19 1255 interface
--- NOTE | ~2019-07-08 | O ---
[place], [place] OPERATIVE NOTE NAME: LIZET BOYCE UNIT #: [id number] ROOM: 523 DOCTOR: JUJU BARBER MD BIRTHDATE: [birth year] DOS: 07/11/2019 GASTROENDOSCOPIC REPORT INDICATIONS: An 83-year-old patient who has presented with chief complaint of gastro-abdominal pain, abnormal liver function test, undergoing investigation. PROCEDURE: Today's procedure part of investigation is ERCP plus papillotomy plus biopsy of the papilla plus balloon sweep of common duct plus common duct stent. PREMEDICATION: Propofol. ANESTHESIA: General. SCOPE: Olympus side-viewing duodenoscope. REPORT: After putting the patient in left lateral position and application of lubricant to the scope, the scope was introduced. Thereafter, under direct visualization, advanced through the length of esophagus without difficulty into gastric pouch into duodenal bulb. Selective cannulization of common duct, which is next to a duodenal diverticulum was undertaken. Papilla appears to be hypertrophic. Guidewire was advanced into the right hepatic radicle. Hepatic radicles opacified and extension of papillotomy was performed at 1 o'clock and a balloon size 12 was introduced into the common duct. Multiple sweeps done, sludge extracted. Papillary stenosis was treated with balloon dilation and papillotomy. At this stage, a stent size 10 x 5 was deployed in the common bile duct, secretions began. Air was suctioned out. Photographic and radiologic documentation of the stent was done. The patient extubated, tolerated the procedure well. IMPRESSION: Endoscopic retrograde cholangiopancreatography, papillotomy, biopsy of the ampulla of Vater for hypertrophic ampulla, balloon sweep of common bile duct, and common bile duct stent. FINAL DIAGNOSIS: Papillary stenosis, papillary hyperplasia, status post biopsy and periampullary diverticulum. PLAN AND DISCUSSION: LFTs follow up tomorrow and next day and clinical reassessment. The patient to continue with Merrem antibiotic. [place], [place] OPERATIVE NOTE NAME: LIZET BOYCE UNIT #: [id number] ROOM: 523 DOCTOR: JUJU BARBER MD BIRTHDATE: [birth year] JUJU BARBER MD CM:OPRECORD:OPERATIVE NOTE [phone] JUJU BARBER MD 07/11/191850 interface
--- NOTE | ~2019-07-08 | CON ---
[place], [place] REPORT OF CONSULTATION NAME: LIZET BOYCE UNIT #: [id number] ROOM: 523 DOCTOR: HEIDI LIEBERMAN,RUSSELL BIRTHDATE: [birth year] DOS: 07/13/2019 CARDIOLOGY CONSULTATION REASON FOR CONSULTATION: Atrial fibrillation with slow ventricular rate. HISTORY OF PRESENT ILLNESS: The patient is an 83-year-old gentleman admitted for altered mental status and diagnosed with sepsis. He had chronic atrial fibrillation. His Xarelto was on hold due to his recent ERCP. The patient noted to have occasional bradycardia and his Cardizem was also discontinued and it was held yesterday and Cardiology consulted for further recommendations. He denies any chest pain, short of breath. No PND or orthopnea. No nausea, vomiting, diarrhea. No fever and chills. No bladder or bowel symptoms. No neurologic symptoms. No cough or hemoptysis. REVIEW OF SYSTEMS: Review of 10 systems negative except as mentioned above. PAST MEDICAL HISTORY: 1. Atrial fibrillation. 2. COPD. 3. Hypertension. 4. History of CVA. 5. Dyslipidemia. PAST SURGICAL HISTORY: History of biliary stent. History of hip surgery. SOCIAL HISTORY: The patient does not smoke, does not use illicit drugs. Quit smoking 2 years ago and quit drinking 20 years ago. FAMILY HISTORY: Nil contributory. Father at age 94. Mother at the age 90s. She had history of coronary artery disease. ALLERGIES: THE PATIENT IS ALLERGIC TO IVP DYE. HOME MEDICATIONS: Reviewed. PHYSICAL EXAMINATION: VITAL SIGNS: Blood pressure 150/70, pulse 69, respiratory rate 18, weight 55.4 kg, BMI is 19. GENERAL: Alert, comfortable, in no acute distress. NECK: Supple, no distended neck veins, no carotid bruit. CHEST: Symmetrical, nontender. LUNGS: Clear to auscultation bilaterally. HEART: Irregularly irregular, grade 1/6 systolic murmur. ABDOMEN: Bowel sounds normal. EXTREMITIES: Showed no edema. Distal pulses palpable. SKIN: Warm and dry. No cyanosis, no clubbing. RECTAL: Deferred. GENITOURINARY: Deferred. NEUROLOGIC: Alert with no focal neurologic deficit. [place], [place] REPORT OF CONSULTATION NAME: LIZET BOYCE UNIT #: [id number] ROOM: 523 DOCTOR: HEIDI LIEBERMAN,RUSSELL BIRTHDATE: [birth year] REVIEW OF THE DIAGNOSTIC TESTS: EKG rhythm strips reviewed. CBC, chemistry reviewed. His 2D echo from November 2018 and a CELIA from December 2018 reviewed. CURRENT MEDICATIONS: Reviewed. IMPRESSION: 1. Permanent atrial fibrillation with occasional slow ventricular rate. 2. Sepsis. 3. Pdgfu-tf-nlenqod heart failure, with preserved ejection fraction. 4. Valvular heart disease, with mild mitral regurgitation and mild tricuspid regurgitation. 5. History of cerebrovascular accident with residual right-sided weakness. 6. Anemia. 7. Elevated liver function tests. 8. Recent fall. 9. History of hypertension. RECOMMENDATIONS: I would recommend discontinuing his digoxin and continue Cardizem at 240 mg for his hypertension and monitor heart rate, blood pressures. Resume Xarelto when he is stable from the GI standpoint. No further cardiac testing at this time. Cardiology will see him as needed during the weekend. No family at bedside at the time of my examination. Above recommendations were discussed with the patient. RUSSELL GORDON MD CM:CONSTR:REPORT OF CONSULTATION 1341 07/14/19 0343 interface
--- NOTE | ~2019-07-08 | PR ---
[place], [place] PROGRESS NOTE NAME: LIZET BOYCE UNIT #: [id number] ROOM: 523 DOCTOR: EVIN BOX MD,SANJAY BIRTHDATE: [birth year] DOS: 07/17/2019 SUBJECTIVE: The patient noted comfortable at this time, resting in bed without any distress this morning of assessment, has not been reported any symptoms of fever, chills, or any acute hemoptysis. OBJECTIVE: VITAL SIGNS: Normal temperature, respiratory . Pulse ox saturation at rest on room air recorded 99% saturation. HEENT: Examination shows head was atraumatic. Eyes nonicterus. NECK: Supple. CARDIOVASCULAR: S1, S2 audible. LUNGS: Without any wheezing or crackles this morning. ABDOMEN: Soft, nontender. Bowel sounds present. EXTREMITIES: No new changes. IMPRESSION: Bilateral pulmonary nodule, etiology is unclear, rule out malignancy versus chronic infection, incomplete workup previously and refusal outpatient followup by the patient was known. PLAN OF MANAGEMENT: No change in plan of management. Continue current therapy, plan of care. Discharge planning has already been made transferred to residential facility pending authorization and acceptance to the residential facility. SANJAY CLEARY MD CM:PNTRANS [phone] SANJAY BOX MD 07/17/19 1755 interface
--- NOTE | ~2019-07-08 | CON ---
[place], [place] REPORT OF CONSULTATION [id number] #: [id number] ROOM: 523 DOCTOR: JUJU BARBER MD BIRTHDATE: [birth year] DOS: 07/09/2019 HISTORY OF PRESENT ILLNESS: An 83-year-old patient who has presented with chief complaint of abnormal liver function tests, has undergone investigation, was found to have dilated common bile duct to 14 mm and pancreatic duct to 8 mm and large gallbladder looking hydrops, leukocytosis, abnormal LFTs, on Merrem. Blood cultures have been done. The patient has taken his Xarelto yesterday and admitted after that. His initial white blood cell was 31 and today white blood cell has come down to 26, H and H have been 11 and 34, platelet of 204. His lactic acid was 1.1. Amylase and lipase normal. Comprehensive metabolic panel, abnormal liver function tests, AST and ALT of 65 and 77, alkaline phosphatase greater than 1000, BNP of 2800. Gallbladder ultrasound; distended gallbladder, cholelithiasis, and intra and extrahepatic ducts are dilated as reported. CT scan of the head, no acute intracranial pathology, severe diffuse intracranial encephalomalacia has progressed than before history. PAST MEDICAL HISTORY: Diverticulosis, COPD, confusion, atrial fibrillation, abnormal LFTs, hydrops gallbladder, cerebrovascular accident, hyperlipidemia, hypertension, reflux. PAST SURGICAL HISTORY: Open reduction and internal fixation, biliary interventional therapy and stenting. SOCIAL HISTORY: Heavy smoker, quit 2 years ago. FAMILY HISTORY: Noncontributory. ALLERGIES: IVP DYE. MEDICATIONS: Reviewed. REVIEW OF SYSTEMS: HEENT: Denies double vision, blurred vision. RESPIRATORY: Denies acute shortness of breath. CARDIOVASCULAR: Denies acute chest pain. DIGESTIVE SYSTEM: No hematemesis, no hematochezia. PHYSICAL EXAMINATION: VITAL SIGNS: Stable. HEENT: Within normal limit. Dentures in place. NECK: Supple, no thyromegaly. CHEST: Symmetric anatomy, equal expansion. HEART: Normal sinus rhythm, no gallop, no murmur. ABDOMEN: Soft. No hepato-organomegaly. Bowel sounds present. No pulsatile mass. EXTREMITIES: No cyanosis, no pedal edema. NEUROLOGIC: Alert and slow. Labs reviewed. Records reviewed. [place], [place] REPORT OF CONSULTATION NAME: LIZET BOYCE [facility] #: [id number] UNIT #: [id number] ROOM: 523 DOCTOR: SUNIL LIEBERMAN,JUJU BIRTHDATE: [birth year] IMPRESSION: Abnormal liver function tests, leukocytosis, elevated bilirubin, possible sepsis, MRCP with dilated common bile duct to 14 mm, pancreatic duct to 8 mm, large hiatal hernia, right pleural effusion, bilateral renal cysts, distended gallbladder with sludge, all has been recognized. On the other hand, the patient has taken Xarelto yesterday. I need more timing to put the anticoagulation of Xarelto to be out of the picture, so that we can rendered therapeutic ERCP and stenting if necessary. Therefore, I am going to continue with Merrem infusion, IV hydration. I am going to give him something to eat as well as organizing him n.p.o. from midnight tomorrow and ERCP on Tuesday. Labs reviewed, records reviewed. Other adjunctive diagnoses as outlined in paragraph of past medical, surgical history as dictated above including depression, hypertension, atrial fibrillation, hyperlipidemia, cerebrovascular accident, possible sepsis, abnormal liver function tests, status post previous biliary work, ERCP. PLAN AND DISCUSSION: Workup in progress. JUJU BARBER MD CM:CONSTR:REPORT OF CONSULTATION 192 07/10/19 0143 interface
--- NOTE | ~2019-07-08 | PR ---
[place], [place] PROGRESS NOTE NAME: LIZET BOYCE [facility] [id number] UNIT #: [id number] ROOM: 523 DOCTOR: EVIN BOX MD,SANJAY BIRTHDATE: [birth year] DOS: 07/13/2019 PULMONARY PROGRESS NOTE SUBJECTIVE: The patient was noted comfortable at this time, resting in the bed, has not been noted any ongoing acute respiratory complaints. His LFTs has been probably improved after the ERCP, noted afebrile. There were no symptoms of coughing, chest pain or sputum expectoration stated by the patient. OBJECTIVE: VITAL SIGNS: Normal temperature, respiratory rate of 18, heart rate of 69, blood pressure midnight 150/70. Pulse oxygen saturation recorded as 98% saturation at rest on room air. HEENT: Examination shows head was atraumatic. Eyes nonicterus. NECK: Supple. CARDIOVASCULAR: S1, S2 is audible. LUNGS: No wheeze or crackles. ABDOMEN: Soft, nontender. Bowel sounds present. EXTREMITIES: No new change. IMPRESSION: 1. Resolving obstructive jaundice as well. 2. Cholangitis gradually successfully. 3. Bilateral pulmonary nodules, etiology is unclear. Possible malignancy cannot be excluded. PLAN OF MANAGEMENT: Continuation of the current plan of management without any changes in the treatment. Usual care. Supportive plan of care. SANJAY CLEARY MD CM:PNTRANS [phone] SANJAY BOX MD 07/13/191917 interface
--- NOTE | ~2019-07-08 | PR ---
[place], [place] PROGRESS NOTE NAME[id number] #: [id number] ROOM: 523 DOCTOR: EVIN BOX MD,SANJAY BIRTHDATE: [birth year] DOS: 07/16/2019 PULMONARY PROGRESS NOTE SUBJECTIVE: The patient has been noted comfortable at this time, resting in the bed, does have mild cough. There was no sputum expectoration. Shortness of breath and wheezing reported by the patient. No symptoms of chest pain stated. Overall, general weakness and fatigue were reported. OBJECTIVE: VITAL SIGNS: Normal temperature, respiratory rate 20, heart rate 92, blood pressure 160/76. Pulse ox saturation at rest on room air is 97% saturation. HEENT: Examination shows head was atraumatic. Eyes nonicterus. NECK: Supple. CARDIOVASCULAR SYSTEM: S1, S2 audible. LUNGS: Without any wheeze or crackles. ABDOMEN: Soft, nontender. Bowel sounds present. EXTREMITIES: No new change. IMPRESSION: Stable respiratory status, bilateral pulmonary nodules with overall debility, awaiting for placement at a skilled nurse facility for rehabilitation. PLAN OF MANAGEMENT: No change in plan of management. Upon discharge, an outpatient followup could be established for workup of pulmonary nodule if desired by the patient and family members. SANJAY CLEARY MD CM:PNTRANS [phone] SANJAY BOX MD 07/17/19 0022 interface
[~2019-07-08 10:06] MED LIST changes: +CARDIZEM CD360 MG PO; +CUBICIN500 MG IV; +Ipratropium Brom3 ML NEB; +Lanoxin PO; +MUCINEX ER600 MG PO; +PREDNISONE10 MG PO; +ZITHROMAX500 MG PO
[2019-07-08 10:18] VITALS: BP 133/51
--- NOTE | 2019-07-08 11:00 | NUR ---
PT RESTING IN BED COMFORTABLY. FAMILY AT BEDSIDE
[2019-07-08 11:09] LABS: HEMATOCRIT 32.3 % (42.0-52.0); HEMOGLOBIN 10.8 g/dl (14.0-18.0); MEAN CELL VOLUME 78.6 fl (80.0-94.0); MEAN CORPUSCULAR HGB 26.3 pg (27.0-31.0); MEAN CORPUSCULAR HGB CONC 33.4 g/dl (33.0-37.0); MEAN PLATELET VOLUME 11.4 fl (9.6-12.3); PLATELET COUNT AUTOMATED 215 10*3/uL (130-400); RED BLOOD COUNT 4.11 10*6/uL (4.50-5.90); RED CELL DISTRI WIDTH 16.7 % (0-14.5); WHITE BLOOD COUNT 31.4 10*3/uL (4.8-10.8)
[2019-07-08 11:26] LABS: ACT PARTIAL THROMBO TIME 27.5 SECONDS (20.0-32.1)
[2019-07-08 11:27] LABS: TARGET CELLS MANY; TOTAL CELLS COUNTED 100 #CELLS; TOXIC GRANULATION SLIGHT
[2019-07-08 11:28] LABS: MICROCYTOSIS SLIGHT; PLATELET SUFFICIENCY NORMAL (NORMAL)
[2019-07-08 11:37] LABS: BUN 23 mg/dl (7-24); CHLORIDE 94 mmol/L (98-107); CPK 25 U/L (39-308); CREATININE 1.08 mg/dL (0.70-1.30); POTASSIUM 4.5 mmol/L (3.5-5.1); SGOT/AST 65 IU/L (3-35); SGPT/ALT 77 U/L (12-78); SODIUM 127 mmol/L (136-145); TOTAL PROTEIN 5.9 gm/dL (6.4-8.2)
[2019-07-08 11:44] LABS: LIPASE 215 U/L (73-393)
[2019-07-08 11:49] LABS: ALKALINE PHOSPHATASE 1092 U/L (45-117); TROPONIN I < 0.015 ng/ml (<0.045)
[2019-07-08 11:53] LABS: BILIRUBIN 3+ (NEGATIVE); BLOOD NEGATIVE (NEGATIVE); CLARITY SL CLOUDY (CLEAR); COLOR YELLOW (YELLOW); GLUCOSE NEGATIVE (NEGATIVE); KETONE NEGATIVE (NEGATIVE); LEUKO ESTERASE NEGATIVE (NEGATIVE); NITRITE NEGATIVE (NEGATIVE); PH 5.5 (5.0-9.0)
[2019-07-08 12:02] LABS: BACTERIA 2+; MUCOUS 2+
--- NOTE | 2019-07-08 12:41 | NUR ---
PT RESTING IN BED WITH EYES CLOSED. IN NO ACUTE DISTRESS. SIDERAILS UP X2
[2019-07-08 13:08] VITALS: BP 120/51
--- NOTE | 2019-07-08 13:27 | NUR ---
PT RESTING IN BED.
[2019-07-08 15:10] VITALS: BP 125/96
[2019-07-08 16:00] VITALS: BP 125/96
[2019-07-08 20:00] VITALS: BP 138/77
--- NOTE | 2019-07-08 20:00 | NUR ---
PATIENT PULLED UP AND REPOSITIONED IN BED. ASKED PATIENT WHEN THE LAST DOSE OF HIS ANTICOAGULANT MEDICATION WAS BUT PATIENT WAS UNSURE. BED LOCKED IN LOWEST POSITION. CALL LIGHT WITHIN REACH.
--- NOTE | 2019-07-08 23:59 | NUR ---
PATIENT INCONTINENT OF URINE. FULL BED CHANGE COMPLETED. PATIENT REPOSITIONED IN BED. BED ALARM ON FOR SAFETY. CALL LIGHT WITHIN REACH.
[2019-07-09] VITALS: BP 141/90
--- NOTE | 2019-07-09 00:40 | NUR ---
PATIENT SLEEPING IN BED. NO DISTRESS NOTED. BED ALARM ON FOR SAFETY. BED LOCKED IN LOWEST POSITION. CALL LIGHT WITHIN REACH. RESPIRATIONS EVEN AND UNLABORED.
--- NOTE | 2019-07-09 01:37 | NUR ---
24 HR chart check completed.
--- NOTE | 2019-07-09 06:34 | NUR ---
MRI SCREENING FORM COMPLETED BY TELEPHONE WITH PATIENT'S SISTER MADDI SHAH AT [phone]. PATIENT HAD A STROKE, HIP REPLACEMENT >5 YEARS AGO, AND STENT PLACED IN HIS GALLBLADDER >2-3 YEARS AGO. NO OTHER KNOWN IMPLANTS OR METAL PER SISTER.
--- NOTE | 2019-07-09 07:15 | NUR ---
PT AWAKE. ASSISTED TO BATHROOM. BEDSIDE REPORT RECEIVED. PT STATES HE IS GOING BACK TO SLEEP FOR A BIT. BED LOW. ALARM ON.
[2019-07-09 07:21] LABS: HEMOGLOBIN 11.2 g/dl (14.0-18.0); MEAN CELL VOLUME 78.2 fl (80.0-94.0); MEAN CORPUSCULAR HGB 25.7 pg (27.0-31.0); MEAN CORPUSCULAR HGB CONC 32.9 g/dl (33.0-37.0); PLATELET COUNT AUTOMATED 204 10*3/uL (130-400); RED BLOOD COUNT 4.35 10*6/uL (4.50-5.90); RED CELL DISTRI WIDTH 16.7 % (0-14.5); WHITE BLOOD COUNT 26.5 10*3/uL (4.8-10.8)
[2019-07-09 07:29] LABS: ACT PARTIAL THROMBO TIME 26.1 SECONDS (20.0-32.1)
[2019-07-09 07:47] LABS: ALBUMIN 1.9 gm/dl (3.1-4.5); CHLORIDE 97 mmol/L (98-107); CHOLESTEROL 363 mg/dL (<200); POTASSIUM 4.1 mmol/L (3.5-5.1); SGPT/ALT 74 U/L (12-78); SODIUM 130 mmol/L (136-145)
[2019-07-09 08:01] LABS: BILIRUBIN, DIRECT 6.3 mg/dL (0.0-0.2); BUN 22 mg/dl (7-24); CREATININE 1.06 mg/dL (0.70-1.30); HDL CHOLESTEROL 7 mg/dl (40-60); LDL CHOLESTEROL 277 mg/dL (9-159); SGOT/AST 79 IU/L (3-35); TOTAL PROTEIN 5.7 gm/dL (6.4-8.2); TRIGLYCERIDES 395 mg/dl (<150); VLDL CHOLESTEROL 79 mg/dL (6-40)
[2019-07-09 08:22] LABS: ALKALINE PHOSPHATASE 1198 U/L (45-117)
[2019-07-09 08:29] LABS: MICROCYTOSIS SLIGHT; PLATELET SUFFICIENCY NORMAL (NORMAL); TARGET CELLS MODERATE; TOTAL CELLS COUNTED 100 #CELLS
--- NOTE | 2019-07-09 08:36 | NUR ---
DR SMITH TO SEE PTREGARDING NEWCONSULT. NO NEW ORDERS
--- NOTE | 2019-07-09 08:40 | NUR ---
CALLED JEFF WITH RESULTS OF MORNING LABS. LEFT MESSSAGEAND WAITING QA AUTOMATION DEVELOPER BACK
--- NOTE | 2019-07-09 10:55 | NUR ---
PHYSICAL THERAPY Per Occupational therapist; Full OT evaluation was completed with patient. Upon completion of evaluation, Pt reported that "therapy was bullshit" and he does not want any further therapy services. OT recommended home health services however Pt adamantly and rudely declined; quoting the above. Due to Patient's adamant refusal, Physical therapy evaluation will be cancelled. Thank you Janeth Thornton, PT, DPT
[2019-07-09 12:00] VITALS: BP 139/76
--- NOTE | 2019-07-09 12:22 | NUR ---
Occupational therapy orders received and OT evaluation completed in full on floor five. Patient was initially agreeable to OT evaluation, but was irritable during evaluation. When patient was educated on OT recommendations of home with HH SN, OT, and PT, patient refused future therapy while in the hospital and following discharge. Patient is evaluation only, orders to be discharged. Patient precautions include fall risk, bed alarm, R UE weakness, and 2L02. Patient complexity is moderate, [id number]. Thank you for the referral. Aruna Lopez, OTR/L
--- NOTE | 2019-07-09 14:14 | NUR ---
Curing Room Supervisor in to talk to patient. Patient states lives at HOME with ALONE. There are NO steps in the home. Physician: ATIYA Pharmacy: [facility] health services: [facility] 5 DAYS A WEEK Patient's level of ADLs: MINIMAL ASSIST Patient has working utilities: YES DME: NONE Follow-up physician's appointment after d/c: WILL BE MADE BY HOSPITALIST NURSE DIRECTOR ON DISCHARGE Does patient want to access PORTAL?: NO Discharge plan PT LIVES AT HOME ALONE. STATES HE HAS [facility] [employer] [facility] 5 DAYS A WEEK AND HIS NEICE LOOKS IN ON HIM ALSO. ATTEMPTED TO TALK WITH HIM ABOUT SKILLED STAY BUT HE BECAME VERY AGGITATED AND STATES I AM NOT GOING ANYWHERE BUT HOME. WILL CONTINUE TO FOLLOW. STATES HE WILL HAVE A RIDE HOME. . NIMO TEJADA
[2019-07-09 16:00] VITALS: BP 154/84
--- NOTE | 2019-07-09 19:45 | NUR ---
PATIENT GIVEN A BOXED MEAL. IV FLUID INFUSING PER ORDER. BED ALARM ON FOR SAFETY. CALL LIGHT WITHIN REACH.
[2019-07-09 20:00] VITALS: BP 112/96
[2019-07-10] VITALS: BP 133/67
--- NOTE | 2019-07-10 00:51 | NUR ---
24 HR chart check completed.
--- NOTE | 2019-07-10 02:10 | NUR ---
PATIENT LAYING IN BED. AWAKENS TO VOICE. IV FLUIDS INFUSING PER ORDER. BED ALARM ON FOR SAFETY. CALL LIGHT WITHIN REACH.
[2019-07-10 06:53] LABS: ALBUMIN 1.7 gm/dl (3.1-4.5); BUN 19 mg/dl (7-24); CHLORIDE 103 mmol/L (98-107); CREATININE 0.97 mg/dL (0.70-1.30); POTASSIUM 4.2 mmol/L (3.5-5.1); SGOT/AST 119 IU/L (3-35); SGPT/ALT 84 U/L (12-78); SODIUM 135 mmol/L (136-145); TOTAL PROTEIN 5.2 gm/dL (6.4-8.2)
[2019-07-10 07:08] LABS: ALKALINE PHOSPHATASE 1153 U/L (45-117); BASO # 0.1 10*3/uL (0.0-0.1); BASO % 0.3 % (0.0-1.0); EOS # 0.1 10*3/uL (0.0-0.4); EOS % 0.6 % (1.0-4.0); HEMATOCRIT 31.9 % (42.0-52.0); HEMOGLOBIN 10.6 g/dl (14.0-18.0); LYMPH # 1.5 10*3/uL (1.3-4.4); MEAN CELL VOLUME 78.8 fl (80.0-94.0); MEAN CORPUSCULAR HGB 26.2 pg (27.0-31.0); MEAN CORPUSCULAR HGB CONC 33.2 g/dl (33.0-37.0); MEAN PLATELET VOLUME 11.8 fl (9.6-12.3); MONO # 0.7 10*3/uL (0.1-1.0); MONO % 3.5 % (3.0-9.0); NEUT # 16.1 10*3/uL (2.3-7.9); NEUT % 86.6 % (47.0-73.0); PLATELET COUNT AUTOMATED 276 10*3/uL (130-400); RED BLOOD COUNT 4.05 10*6/uL (4.50-5.90); WHITE BLOOD COUNT 18.6 10*3/uL (4.8-10.8)
[2019-07-10 07:10] LABS: LIPASE 247 U/L (73-393)
[2019-07-10 08:00] VITALS: BP 140/72
--- NOTE | 2019-07-10 08:00 | NUR ---
PT AWAKE. ASSESSMENT COMPLETE. PT STATES HE IS "GOING TO SLEEP A LITTLE LONGER." BED LOW. ALARM ON.
[2019-07-10 12:00] VITALS: BP 144/69
--- NOTE | 2019-07-10 13:04 | NUR ---
PT CONTINUES TO SAY HE IS GOING HOME WITH [facility]UMPT[facility] OF [facility]. WILL CONTINUE TO FOLLOW.
--- NOTE | 2019-07-10 14:30 | NUR ---
PT SLEEPING. EASILY AWAKENED. IV FLUIDS DISCONTINUED. PT STATED HE WAS "HUNGRY." I ORDERED HIS LUNCH. HE ALSO STATED HE WAS "FEELING GOOD TODAY."
[2019-07-10 16:00] VITALS: BP 151/68
--- NOTE | 2019-07-10 18:15 | NUR ---
PT AWAKE. VISITING WITH NIECE AT THE BEDSIDE.
--- NOTE | 2019-07-10 19:59 | NUR ---
24 HR chart check completed.
[2019-07-10 20:00] VITALS: BP 148/74
--- NOTE | 2019-07-10 21:00 | NUR ---
SLEEPING IN BED WITH NO DISTRESS NOTED, AWAKENS EASILY. RESPIRATIONS EASY. LUNGS DIMINISHED. PULSE OX 99% RA. CALL LIGHT WITHIN REACH. NO VOICED COMPLAINTS. BED ALARM MAINTAINED FOR SAFETY
[2019-07-11] VITALS (9 sets, daily range): BP systolic 124–168; BP diastolic 55–91
--- NOTE | 2019-07-11 04:08 | NUR ---
PT ASLEEP IN BED. RESPIRATIONS EASY. NO S/S OF DISTRESS NOTED. WILL MONITOR. CALL LIGHT IN REACH. BED ALARM INTACT.
[2019-07-11 06:29] LABS: HEMATOCRIT 31.1 % (42.0-52.0); HEMOGLOBIN 10.2 g/dl (14.0-18.0); MEAN CELL VOLUME 78.7 fl (80.0-94.0); MEAN CORPUSCULAR HGB 25.8 pg (27.0-31.0); MEAN CORPUSCULAR HGB CONC 32.8 g/dl (33.0-37.0); PLATELET COUNT AUTOMATED 304 10*3/uL (130-400); RED BLOOD COUNT 3.95 10*6/uL (4.50-5.90); RED CELL DISTRI WIDTH 17.2 % (0-14.5); WHITE BLOOD COUNT 18.8 10*3/uL (4.8-10.8)
[2019-07-11 06:47] LABS: ALBUMIN 1.7 gm/dl (3.1-4.5); BILIRUBIN, DIRECT 6.3 mg/dL (0.0-0.2); BUN 17 mg/dl (7-24); CHLORIDE 104 mmol/L (98-107); CREATININE 0.88 mg/dL (0.70-1.30); POTASSIUM 4.2 mmol/L (3.5-5.1); SGOT/AST 178 IU/L (3-35); SGPT/ALT 109 U/L (12-78); SODIUM 135 mmol/L (136-145); TOTAL PROTEIN 5.1 gm/dL (6.4-8.2)
[2019-07-11 06:58] LABS: ALKALINE PHOSPHATASE 1352 U/L (45-117)
[2019-07-11 07:50] LABS: ATYPICAL LYMPHS 1 % (0-0); TOTAL CELLS COUNTED 100 #CELLS
[2019-07-11 07:51] LABS: PLATELET SUFFICIENCY NORMAL (NORMAL)
[2019-07-11 07:54] LABS: MICROCYTOSIS SLIGHT; TARGET CELLS MANY
--- NOTE | 2019-07-11 07:57 | NUR ---
Awake and alert. No c/o . NPO for ERCP.
--- NOTE | 2019-07-11 13:11 | NUR ---
Dr. Wisdom office was notified of consult. Remains NPO pending ERCP
--- NOTE | 2019-07-11 14:22 | NUR ---
PT CONTINUES TO DENY NEEDS OTHER THEN [facility] HE HAS. WILL CONTINUE TO FOLLOW.
--- NOTE | 2019-07-11 14:44 | NUR ---
Continues NPO awaiting ERCP.
--- NOTE | 2019-07-11 15:12 | NUR ---
To OR via Bed .
--- NOTE | 2019-07-11 17:29 | NUR ---
1600 assessment deferred as pt. is in surgery for ERCP.
--- NOTE | 2019-07-11 19:05 | NUR ---
Returned from OR
--- NOTE | 2019-07-11 19:45 | NUR ---
PT. BACK FROM SURGERY; LINENS BLOODY & CHANGED AT THIS TIME BY PA & RN. ALSO CHANGED OVER IV TUBING AT THIS TIME. PT. REQUESTING SOMETHING TO EAT; TOOK PATIENT KHADIJAH. BED ALARM INTACT & CALL LIGHT WITHIN REACH.
--- NOTE | 2019-07-11 22:30 | NUR ---
RESTING IN BED WITH EYES CLOSED; IV FLUIDS CONTINUE TO INFUSE WITHOUT DIFFICULTY. BED IN LOW LOCKED POSITION, BED ALARM INTACT. CALL LIGHT WITHIN REACH.
[2019-07-12] VITALS: BP 144/51
--- NOTE | 2019-07-12 00:21 | NUR ---
PATIENT MEDICATED WITH ZOFRAN PER PRN ORDER FOR C/O STOMACH PAIN AND NOT FEELING WELL.
[2019-07-12 06:23] LABS: BASO # 0.1 10*3/uL (0.0-0.1); BASO % 0.4 % (0.0-1.0); EOS # 0.1 10*3/uL (0.0-0.4); EOS % 0.6 % (1.0-4.0); HEMOGLOBIN 10.9 g/dl (14.0-18.0); LYMPH # 2.2 10*3/uL (1.3-4.4); LYMPH % 13.6 % (27.0-41.0); MEAN CELL VOLUME 79.8 fl (80.0-94.0); MEAN CORPUSCULAR HGB 25.6 pg (27.0-31.0); MEAN CORPUSCULAR HGB CONC 32.1 g/dl (33.0-37.0); MEAN PLATELET VOLUME 11.7 fl (9.6-12.3); MONO # 0.6 10*3/uL (0.1-1.0); MONO % 3.8 % (3.0-9.0); NEUT # 12.7 10*3/uL (2.3-7.9); PLATELET COUNT AUTOMATED 333 10*3/uL (130-400); RED BLOOD COUNT 4.26 10*6/uL (4.50-5.90); RED CELL DISTRI WIDTH 17.5 % (0-14.5); WHITE BLOOD COUNT 15.9 10*3/uL (4.8-10.8)
[2019-07-12 06:29] LABS: ALBUMIN 1.7 gm/dl (3.1-4.5); BUN 15 mg/dl (7-24); CHLORIDE 106 mmol/L (98-107); POTASSIUM 4.8 mmol/L (3.5-5.1); SODIUM 136 mmol/L (136-145)
[2019-07-12 06:44] LABS: BILIRUBIN, DIRECT 3.5 mg/dL (0.0-0.2); CREATININE 0.72 mg/dL (0.70-1.30); SGOT/AST 161 IU/L (3-35); SGPT/ALT 108 U/L (12-78); TOTAL PROTEIN 5.3 gm/dL (6.4-8.2)
[2019-07-12 06:45] LABS: ALKALINE PHOSPHATASE 1443 U/L (45-117)
[2019-07-12 08:00] VITALS: BP 120/60
--- NOTE | 2019-07-12 08:00 | NUR ---
Patient resting quietly with no c/o discomfort. Respirations easy and regular. Vital signs stable. No overt distress. AURORA SAUNDERS
--- NOTE | 2019-07-12 08:30 | NUR ---
24 HR AND ENTIRE chart check completed.
--- NOTE | 2019-07-12 11:35 | NUR ---
ATTEMPTED TO TALK TO PT ABOUT SNF CARE AGAIN BUT PT SAYS I AM GOING HOME. WILL CONTINUE TO FOLLOW.
[2019-07-12 12:00] VITALS: BP 145/57
--- NOTE | 2019-07-12 15:49 | NUR ---
MESSAGE LEFT FOR 'S ANSWERING SERVICE REGARDING NEW CONSULT. AWAITING CALL BACK.
[2019-07-12 16:00] VITALS: BP 150/56
[2019-07-12 20:00] VITALS: BP 178/72
[2019-07-13] VITALS: BP 158/70
[2019-07-13 06:21] LABS: BASO # 0.1 10*3/uL (0.0-0.1); BASO % 0.6 % (0.0-1.0); EOS # 0.2 10*3/uL (0.0-0.4); EOS % 1.3 % (1.0-4.0); HEMATOCRIT 35.5 % (42.0-52.0); HEMOGLOBIN 11.3 g/dl (14.0-18.0); LYMPH # 2.4 10*3/uL (1.3-4.4); LYMPH % 16.9 % (27.0-41.0); MEAN CELL VOLUME 80.3 fl (80.0-94.0); MEAN CORPUSCULAR HGB 25.6 pg (27.0-31.0); MEAN CORPUSCULAR HGB CONC 31.8 g/dl (33.0-37.0); MONO # 0.6 10*3/uL (0.1-1.0); MONO % 4.4 % (3.0-9.0); NEUT # 10.9 10*3/uL (2.3-7.9); NEUT % 75.3 % (47.0-73.0); PLATELET COUNT AUTOMATED 335 10*3/uL (130-400); RED BLOOD COUNT 4.42 10*6/uL (4.50-5.90); RED CELL DISTRI WIDTH 17.1 % (0-14.5); WHITE BLOOD COUNT 14.5 10*3/uL (4.8-10.8)
[2019-07-13 06:37] LABS: ALBUMIN 1.8 gm/dl (3.1-4.5); BILIRUBIN, DIRECT 2.4 mg/dL (0.0-0.2); TOTAL PROTEIN 5.4 gm/dL (6.4-8.2)
[2019-07-13 12:00] VITALS: BP 168/86
--- NOTE | 2019-07-13 13:22 | NUR ---
PT CONTINUES TO SAY HE WILL GO HOME WHEN MEDICALLY STABLE, WITH [facility]. WILL CONTINUE TO FOLLOW.
--- NOTE | 2019-07-13 14:47 | NUR ---
REFERRAL SENT TO [facility] TO RESUME AIDS ON DISCHARGE. TALKED WITH THEM ABOUT NURSING ALSO BUT THEY STATE DR RAJPUT WILL NOT FOLLOW IT AND THE PT HAS NO OTHER PCP. WILL CONTINUE TO FOLLOW.
[2019-07-13 16:00] VITALS: BP 186/84
--- NOTE | 2019-07-13 16:24 | NUR ---
CALLED DR BARBER PER PT REQUEST TO RESUME REGULAR DIET. WAITING FIBERGLASS AUTO BODY REPAIRER BACK
--- NOTE | 2019-07-13 17:20 | NUR ---
PER PT CONTINUES TO REQUEST A REGULAR DIET. PT HAS TOLERATED A FULL LIQUID DIET AND HAS NO COMPLAINTS OF NAUSEA/VOMITING. I CAN NOT REACH DR BARBER. I CALLED DR LEYVA AND RECEIVED ORDER TO RESUME PTS REGULAR DIET
--- NOTE | 2019-07-13 17:31 | NUR ---
PTS BP ELEVATED. DR LEYVA NOTIFIED. ORDER TO DC IV FLUIDS AND IV HYDRALAZINE 5MG NOW.
[2019-07-13 20:00] VITALS: BP 154/75
--- NOTE | 2019-07-13 23:51 | NUR ---
NOTIFIED BP OF 180/97.
[2019-07-14] VITALS: BP 180/97
--- NOTE | 2019-07-14 02:15 | NUR ---
24 HR chart check completed.
[2019-07-14 03:54] VITALS: BP 148/70
[2019-07-14 07:18] LABS: BASO # 0.1 10*3/uL (0.0-0.1); BASO % 0.7 % (0.0-1.0); EOS # 0.3 10*3/uL (0.0-0.4); HEMATOCRIT 34.8 % (42.0-52.0); HEMOGLOBIN 10.9 g/dl (14.0-18.0); LYMPH # 2.2 10*3/uL (1.3-4.4); LYMPH % 13.7 % (27.0-41.0); MEAN CELL VOLUME 81.1 fl (80.0-94.0); MEAN CORPUSCULAR HGB 25.4 pg (27.0-31.0); MEAN CORPUSCULAR HGB CONC 31.3 g/dl (33.0-37.0); MEAN PLATELET VOLUME 10.8 fl (9.6-12.3); MONO # 0.8 10*3/uL (0.1-1.0); MONO % 5.3 % (3.0-9.0); NEUT % 76.6 % (47.0-73.0); PLATELET COUNT AUTOMATED 315 10*3/uL (130-400); RED BLOOD COUNT 4.29 10*6/uL (4.50-5.90); RED CELL DISTRI WIDTH 17.1 % (0-14.5); WHITE BLOOD COUNT 15.7 10*3/uL (4.8-10.8)
[2019-07-14 07:41] LABS: ALBUMIN 1.9 gm/dl (3.1-4.5); BILIRUBIN, DIRECT 2.1 mg/dL (0.0-0.2); TOTAL PROTEIN 5.5 gm/dL (6.4-8.2)
[2019-07-14 08:00] VITALS: BP 152/90
--- NOTE | 2019-07-14 08:51 | NUR ---
PATIENT SITTING UP IN CHAIR. NO DISTRESS NOTED. RESPIRATIONS EASY, REGULAR. POX 94% VIA RA. NO VOICED COMPLAINTS AT THIS TIME. WILL MONITOR. CALL LIGHT WITHIN REACH. BP STABLE. VSS.
[2019-07-14 12:00] VITALS: BP 152/55
[2019-07-14 16:00] VITALS: BP 139/71
[2019-07-14 20:00] VITALS: BP 139/71
[2019-07-15] VITALS: BP 137/63
--- NOTE | 2019-07-15 02:31 | NUR ---
24HR CHART CHECK COMPLETED
[2019-07-15 06:55] LABS: BASO # 0.1 10*3/uL (0.0-0.1); BASO % 0.5 % (0.0-1.0); EOS # 0.3 10*3/uL (0.0-0.4); EOS % 2.2 % (1.0-4.0); HEMATOCRIT 34.8 % (42.0-52.0); HEMOGLOBIN 10.7 g/dl (14.0-18.0); LYMPH # 2.5 10*3/uL (1.3-4.4); LYMPH % 16.5 % (27.0-41.0); MEAN CELL VOLUME 81.9 fl (80.0-94.0); MEAN CORPUSCULAR HGB 25.2 pg (27.0-31.0); MEAN CORPUSCULAR HGB CONC 30.7 g/dl (33.0-37.0); MEAN PLATELET VOLUME 10.6 fl (9.6-12.3); MONO # 0.8 10*3/uL (0.1-1.0); MONO % 5.6 % (3.0-9.0); NEUT # 11.2 10*3/uL (2.3-7.9); PLATELET COUNT AUTOMATED 345 10*3/uL (130-400); RED BLOOD COUNT 4.25 10*6/uL (4.50-5.90); RED CELL DISTRI WIDTH 17.2 % (0-14.5); WHITE BLOOD COUNT 15.1 10*3/uL (4.8-10.8)
[2019-07-15 06:58] LABS: ALBUMIN 1.8 gm/dl (3.1-4.5); BUN 11 mg/dl (7-24); CHLORIDE 106 mmol/L (98-107); CREATININE 0.72 mg/dL (0.70-1.30); POTASSIUM 3.5 mmol/L (3.5-5.1); SGOT/AST 58 IU/L (3-35); SGPT/ALT 70 U/L (12-78); SODIUM 138 mmol/L (136-145); TOTAL PROTEIN 5.5 gm/dL (6.4-8.2)
[2019-07-15 07:10] LABS: ALKALINE PHOSPHATASE 1016 U/L (45-117)
[2019-07-15 07:36] VITALS: BP 126/62
--- NOTE | 2019-07-15 07:36 | NUR ---
THIS NURSE ASSISTED PATIENT UP TO BATHROOM. SLOW, STEADY GAIT WITH ASSISTANCE.
--- NOTE | 2019-07-15 07:37 | NUR ---
PATIENT PLACED BACK INTO RECLINER CHAIR. VSS. WILL CONTINUE TO MONITOR. CALL LIGHT WITHIN REACH.
[2019-07-15 12:00] VITALS: BP 149/80
--- NOTE | 2019-07-15 15:57 | NUR ---
CALLED AT THIS TIME REGARDING LOSS OF IV ACCESS. OKAY TO LEAVE IV OUT TONIGHT. STATES TO RETRY TOMORROW.
[2019-07-15 16:00] VITALS: BP 147/57
[2019-07-15 20:00] VITALS: BP 138/69
--- NOTE | 2019-07-15 21:00 | NUR ---
RN ATTEMPTED TWICE TO INITIATE IV ACCESS. UNABLE TO INITIATE AT THIS TIME. NOTIFIED BY PEDRO RN. OKAY TO LEAVE OUT IV UNTIL TOMORROW. WILL TRY AGAIN AT LATER TIME.
[2019-07-16] VITALS: BP 140/78
--- NOTE | 2019-07-16 05:40 | NUR ---
PATIENT SCRATCHED FACE AND CREATED A SKIN TEAR 1.8 X 0.7 X 0.1. PATIENT STATES "THAT'S NOT NECESSARY" TO TAKE PHOTOS, BUT DOES LET RN MEASURE. HYDROGEL APPLIED WITH GAUZE AND BANDAID. WILL MONITOR.
[2019-07-16 06:44] LABS: BASO # 0.1 10*3/uL (0.0-0.1); BASO % 0.6 % (0.0-1.0); EOS # 0.4 10*3/uL (0.0-0.4); EOS % 2.8 % (1.0-4.0); HEMATOCRIT 33.7 % (42.0-52.0); HEMOGLOBIN 10.5 g/dl (14.0-18.0); LYMPH # 2.4 10*3/uL (1.3-4.4); LYMPH % 15.9 % (27.0-41.0); MEAN CELL VOLUME 81.2 fl (80.0-94.0); MEAN CORPUSCULAR HGB 25.3 pg (27.0-31.0); MEAN CORPUSCULAR HGB CONC 31.2 g/dl (33.0-37.0); MEAN PLATELET VOLUME 10.6 fl (9.6-12.3); MONO # 0.9 10*3/uL (0.1-1.0); MONO % 5.8 % (3.0-9.0); NEUT # 11.2 10*3/uL (2.3-7.9); NEUT % 73.9 % (47.0-73.0); PLATELET COUNT AUTOMATED 340 10*3/uL (130-400); RED BLOOD COUNT 4.15 10*6/uL (4.50-5.90); RED CELL DISTRI WIDTH 17.2 % (0-14.5); WHITE BLOOD COUNT 15.1 10*3/uL (4.8-10.8)
[2019-07-16 07:12] LABS: ALBUMIN 1.9 gm/dl (3.1-4.5); ALKALINE PHOSPHATASE 970 U/L (45-117); BUN 9 mg/dl (7-24); CHLORIDE 107 mmol/L (98-107); CREATININE 0.74 mg/dL (0.70-1.30); POTASSIUM 3.6 mmol/L (3.5-5.1); SGOT/AST 52 IU/L (3-35); SGPT/ALT 58 U/L (12-78); SODIUM 139 mmol/L (136-145); TOTAL PROTEIN 5.4 gm/dL (6.4-8.2)
--- NOTE | 2019-07-16 08:00 | NUR ---
PT IN BED, COORPORATIVE WITH CARE. PT AGREEABLE TO ANOTHER ATTEMPT OF IV START. IV #24 STARTED RIGHT WRIST, PT TOLERATED WELL, GOOD BLOOD RETURN.
--- NOTE | 2019-07-16 08:01 | NUR ---
LIZET BOYCE [id number] Please refer to the physician's history and physical for past medical history, comorbid conditions, and allergies. Diagnosis: METABOLIC ENCEPHALOPATHY LEUKOCYTOSIS SEPSIS Darnell Score: 16,AT RISK WOUND DESCRIPTIONS: Wound Number: 1 Location of the wound: RIGHT SIDE OF NOSE Type of wound: SKIN TEAR Thickness: Partial Size: 0.6cm X 1.1cm X 0.1cm Tunneling: NONE Undermining: NONE Sinus Tract: NONE Presence of Exudate: Serous sanguineous Amount: Light Color: Red Odor: None Periwound Skin Appearance: Erythema Wound edges: APPROXIMATED Pain (associated with wound): DENIED AT TIME OF ASSESSMENT How does patient state this happened? PATIENT STATES THAT HIS NOSE WAS ITCHING AND HE SCRATCHED IT. Surface the patient is resting on: Isoflex SKIN PREVENTION RECOMMENDATION: 1. Pressure redistribution support surface as appropriate 2. Elevate heels 3. Remove boots/TEDS every shift and reapply 4. Head of bed 30 degrees as tolerated 5. Assess nutrition and hydration 6. Manage moisture 7. Avoid the use of containment devices while in bed 8. Use absorptive products on surfaces limit layers of linens on bed 9. Turn and reposition every 1-2 hours in bed and every 1 hour in chair as tolerated 10. Weight shifts every 15 minutes while up in chair 11. Offloading with pillows or device to keep heels elevated off bed 12. Monitor skin at least every shift 13. Inspect under medical devices twice a day WOUND TREATMENT RECOMMENDATIONS: CLEANSE RIGHT SIDE OF NOSE WITH NSS PAT DRY APPLY BACTROBAN TWICE DAILY AND COVER WITH BANDAID NEEDED.
--- NOTE | 2019-07-16 09:04 | NUR ---
Nursing screen and occupational therapy orders received on 07/16. OTR completed an evaluation in full on 07/09/19 with the patient. Following OT evaluation and recommendations for further therapy, patient refused further OT treatment on 07/09. Will follow up with patient. Thank you. Aruna Lopez, OTR/Jovanna
[2019-07-16 09:11] VITALS: BP 160/76
--- NOTE | 2019-07-16 10:30 | NUR ---
Occupational therapy orders received. Patient was seated EOB eating breakfast upon OT arrival. Following the introductions and explaining occupational therapy, patient stated "I don't want therapy." Patient further educated on benefits of OT and replied "I don't want it at all." OT orders will be discharged at this time. Thank you. Aruna Lopez, OTR/L
[2019-07-16 12:00] VITALS: BP 127/64
--- NOTE | 2019-07-16 13:02 | NUR ---
PT CONTINUES TO INSIST HE IS GOING HOME ON DISCHARGE. PT HAS [facility]YS A WEEK. REFERRAL WAS SENT TO TUESDAY. WILL CONTINUE TO FOLLOW.
--- NOTE | 2019-07-16 14:48 | NUR ---
SPOKE WITH PT JAZMYN HURTADO. EXPLAINED TO HER CONCERNS OVER PT STATING HE WANTS TO GO HOME. SHE HAS SAME CONCERNS. STATES HE WAS AT [facility] PREVIOUSLY AND HE SAYS HE WILL NEVER GO BACK THERE. PT HAS ALSO BEEN TO [facility] PREVIOU[facility] BUT THAT WAS 3 YEARS AGO. WENT UP TO TALK WITH PT ABOUT SKILLED SERVICES AND JAZMYN CONCERN THAT HE WAS UANBLE TO CARE FOR SELF AT HOME. PT WOULD NOT MAKE A COMMITMENT TO A SKILLED FACILITY AT THIS TIME. DOES SAY HE WILL THINK ABOUT IT. WILL REVISIT LATER TO GET ANSWER.
--- NOTE | 2019-07-16 15:00 | NUR ---
PT SITTING AT BEDSIDE, EATING LUNCH. PT STATES NO NEEDS AT THIS TIME. PT GETS AGITATED WITH BED ALARM GOING OFF WHEN HE MOVES AROUND OR STANDS UP. EXPLAIINED BED ALARM TO PATIENT AMD IMPORTANCE OF CALLING FOR ASSIST PRIOR TO GETTING OUT OF BED.
[2019-07-16 16:00] VITALS: BP 138/52
--- NOTE | 2019-07-16 16:07 | NUR ---
PHYSICAL THERAPY Physical therapy evaluation completed. Full evaluation/details to follow. Low complexity skilled PT evaluation performed, [id number]. PT to progress LE strength, transfers, gait, and safety per POC. Recommend SNF at discharge for increased safety and reduced risk for falls. Thank you. Isabelle Trevizo,PT,DPT
--- NOTE | 2019-07-16 18:33 | NUR ---
PHYSICAL THERAPY Nursing screen received and chart reviewed. Physical therapy order received and completed 07/16/19. Thank you. Isabelle Trevizo,PT,DPT
--- NOTE | 2019-07-16 19:30 | NUR ---
ASSUMED CARE OF PT AT THIS TIME. PT ASLEEP IN BED. RESPIRATIONS EASY. NO S/S OF DISTRESS NOTED. WILL MONITOR. CALL LIGHT IN REACH. BED ALARM INTACT.
[2019-07-16 20:00] VITALS: BP 149/72
[2019-07-17] VITALS: BP 131/84
[2019-07-17 06:17] LABS: BASO # 0.1 10*3/uL (0.0-0.1); BASO % 0.5 % (0.0-1.0); EOS # 0.3 10*3/uL (0.0-0.4); HEMATOCRIT 33.6 % (42.0-52.0); HEMOGLOBIN 10.4 g/dl (14.0-18.0); LYMPH # 2.4 10*3/uL (1.3-4.4); LYMPH % 14.2 % (27.0-41.0); MEAN CELL VOLUME 83.2 fl (80.0-94.0); MEAN CORPUSCULAR HGB 25.7 pg (27.0-31.0); MEAN PLATELET VOLUME 10.3 fl (9.6-12.3); MONO % 5.9 % (3.0-9.0); NEUT # 12.8 10*3/uL (2.3-7.9); NEUT % 76.4 % (47.0-73.0); PLATELET COUNT AUTOMATED 310 10*3/uL (130-400); RED BLOOD COUNT 4.04 10*6/uL (4.50-5.90); RED CELL DISTRI WIDTH 17.4 % (0-14.5); WHITE BLOOD COUNT 16.8 10*3/uL (4.8-10.8)
[2019-07-17 06:29] LABS: BUN 13 mg/dl (7-24); CHLORIDE 106 mmol/L (98-107); CREATININE 0.81 mg/dL (0.70-1.30); POTASSIUM 3.6 mmol/L (3.5-5.1); SODIUM 141 mmol/L (136-145)
--- NOTE | 2019-07-17 07:12 | NUR ---
RV REPAIRER faxed new referral over to [facility] for review. -MANJULA Pérez
--- NOTE | 2019-07-17 07:44 | NUR ---
PT ASSISTED TO USE URINAL DURING BESIDE REPORT. DENIES ANY NEEDS AT THIS TIME.
[2019-07-17 08:00] VITALS: BP 169/93
--- NOTE | 2019-07-17 08:33 | NUR ---
PHYSICAL THERAPY Patient presented to therapy in supine with head of bed elevated and bed alarm activated. Patient was identified by name and on wristband. Patient gives informed consent for treatment. Patient performed supine to sitting transfer with SBA. Patient sat on EOB unassisted. Patient performed sit to stand transfer with CGA X 1. Patient ambulated with Wh Walker for 60' x 1 and then again , for 40' x 1 with CGA X 1 and verbal cues for upright posture, lifting his R foot when advancing LEs, and manual assistance with direction of walker. Patient continually wanted to turn walker into the wall and was not safe while performing turns with Wh Walker. Patient had multiple small losses of balance while performing gait. Patient ambulated to bedside chair where he attempted to turn and back up to bedside chair, but required this HANDLE AND VENT MACHINE OPERATOR to moved his Walker for him and to manually back walker up with patient. Patient sat in bedsde chair with CGA X 1. Patient performed 30 seconds sit to stand test with results recorded as 7 Xs sit to stands in 30 seconds with use of UEs to push off of armrests of chair. Patient then performed TUG TEST in 50 seconds with Wh Walker and CGA X 1. Patient uses chair armrests to push off of chair when standing . Patient performed bilateral LE ther ex x 10 reps each in all planes of movement for strengthening the LEs in order to improve functional mobility. Ther ex performd in seated position. Patient was 1:1 with this HANDLE AND VENT MACHINE OPERATOR for 25 minutes total. Patient was left in seated position in bed side chair with call light within reach, chair alarm tested and attached to patient and LEs elevated. LIZANDRO SEPULVEDA HANDLE AND VENT MACHINE OPERATOR
--- NOTE | 2019-07-17 10:30 | NUR ---
Turkish Rubber in to see patient. Discussed short term SNF and he refuses. Asked if he was able to go home and take care of himself, how was he getting around in his hospital room, who is going to make his food for him. He states he thinks he will be able to get along at home. Discussed home health care services and he currently has [facility] and would like to resume those services up on discharge. Will revisit short term SNF again. At this time he chooses to go home. When medically stable he will be discharged to home with the resumption of his [facility].
[2019-07-17 12:00] VITALS: BP 160/61
--- NOTE | 2019-07-17 12:42 | NUR ---
MANJULA informed the patient is still refusing SNF. Patient has been referred to [facility] and will keep it in place in case patient changes his mind. -MANJULA Pérez
[2019-07-17 16:00] VITALS: BP 155/40
[2019-07-17] MEDS ORDERED: 'CIPRO500 M1 PO (17:21)
[2019-07-17] MEDS ORDERED: FLAGYL500 MG PO (17:21)
[2019-07-17 20:00] VITALS: BP 146/78
[2019-07-18] VITALS (7 sets, daily range): BP systolic 128–154; BP diastolic 55–85
[2019-07-18 07:05] LABS: BASO # 0.1 10*3/uL (0.0-0.1); BASO % 0.5 % (0.0-1.0); EOS # 0.3 10*3/uL (0.0-0.4); EOS % 1.4 % (1.0-4.0); HEMATOCRIT 32.8 % (42.0-52.0); HEMOGLOBIN 10.2 g/dl (14.0-18.0); LYMPH # 2.7 10*3/uL (1.3-4.4); MEAN CORPUSCULAR HGB 25.8 pg (27.0-31.0); MEAN CORPUSCULAR HGB CONC 31.1 g/dl (33.0-37.0); MEAN PLATELET VOLUME 11.3 fl (9.6-12.3); MONO % 5.8 % (3.0-9.0); NEUT # 13.7 10*3/uL (2.3-7.9); NEUT % 76.6 % (47.0-73.0); PLATELET COUNT AUTOMATED 267 10*3/uL (130-400); RED BLOOD COUNT 3.95 10*6/uL (4.50-5.90); RED CELL DISTRI WIDTH 17.6 % (0-14.5); WHITE BLOOD COUNT 17.8 10*3/uL (4.8-10.8)
[2019-07-18 07:14] LABS: ALBUMIN 1.9 gm/dl (3.1-4.5); ALKALINE PHOSPHATASE 759 U/L (45-117); BUN 16 mg/dl (7-24); CHLORIDE 107 mmol/L (98-107); CREATININE 0.77 mg/dL (0.70-1.30); POTASSIUM 3.8 mmol/L (3.5-5.1); SGOT/AST 43 IU/L (3-35); SGPT/ALT 48 U/L (12-78); SODIUM 142 mmol/L (136-145); TOTAL PROTEIN 5.6 gm/dL (6.4-8.2)
--- NOTE | 2019-07-18 07:15 | NUR ---
Patient resting quietly with no c/o discomfort. Respirations easy and regular. Vital signs stable. No overt distress. AURORA SAUNDERS
--- NOTE | 2019-07-18 09:00 | NUR ---
Licensing Engineer in to see patient. Discussed short term SNF and he continues to refuse. Discussed resuming his current home health care services with [facility] and he remains agreeable. When medically stable he will be discharged to home with the resumption of his [facility].
--- NOTE | 2019-07-18 10:08 | NUR ---
PHYSICAL THERAPY PT SUPINE IN BED UPON ARRIVAL BODY ALARM ON. PT IDENTIFIED BY NAME AND . PT AGREED TO ALL PT TREATMENT THIS VISIT. PT PERFORMED SUPINE TO SIT EOB WITH SBA AND VC'S FOR SAFETY. PT PERFORMED STS FROM EOB WITH CGA AND VC'S FOR SAFETY AND TECHNIQUE. PT GAIT TRAINED 30FT X2 WITH HAND HELD ASSISTANCE AND VC'S FOR HEEL TOE GAIT AND TO FOCUS ON SAFETY. PT PERFORMED STS TO EOB WITH HAND VC'S FOR SAFETY. PT PERFORMED SIT TO SUPINE WITH SBA AND VC'S TO MOVE TO HEAD OF BED. PT SUPINE IN BED WITH BODY ALARM ON AND CALL LIGHT IN HAND. PT REPORTS NO OTHER NEEDS AT TIME TIME. PT SEEN 1:1 FOR 14MINS. ANGEL PELAEZ PTA
[2019-07-18] MEDS ORDERED: DILTIAZEM CD240 MG PO (10:53)
[2019-07-18] MEDS ORDERED: LISINOPRIL5 MG PO (10:53)
[2019-07-18] MEDS ORDERED: ATORVASTATIN CA40 M1 PO (10:53)
--- NOTE | 2019-07-18 11:37 | NUR ---
Faxed home health care resumption to [facility]
--- NOTE | 2019-07-18 13:05 | NUR ---
JEWELRY POLISHER received phone call from patients niece stated that she is unable to care for him at home. JEWELRY POLISHER explained the patient has been given the option to go to [facility] multiple times from multiple different people and the patient has refused. JEWELRY POLISHER explained to her that this JEWELRY POLISHER would reach out to the [facility] to see if they would be able to get into to see the patient tomorrow. JEWELRY POLISHER reached out to [facility] and they stated they would be able to go see the patient tomorrow but did not give specific time. [facility] stated the patient would need to be seen by his PCP in order to have PT/OT at home. JEWELRY POLISHER attempted to reach back out to the patients niece and there was no answer. Patients nephew is at bedside, JEWELRY POLISHER informed him of the Captial being able to see the patient tomorrow at home. MANJULA also explained this to Amy. -MANJULA Pérez
--- NOTE | 2019-07-18 13:29 | NUR ---
Doubling Machine Operator in to see patient. Patient is now agreeable to go to [facility]. Family in room. Nurse and manager social following.
--- NOTE | 2019-07-18 14:24 | NUR ---
Patient is now agreeable to go to [facility]. [facility] still has a bed for the patient. [place] PASRR has been submitted will await for the PASRR to be returned and patient will be able to go to [facility] at that time. Until this afternoon patient has been refusing SNF.
--- NOTE | 2019-07-18 18:15 | NUR ---
DR PRICE NOTIFIED OF EMESIS, MOTTLING NOTED TO LEGS/CHEST AND CHILLING COMPLAINTS.
--- NOTE | 2019-07-18 18:55 | NUR ---
MARIELLA HURTADO NOTIFIED OF PT'S TRANSFER TO ICU PER PT REQUEST.
--- NOTE | 2019-07-18 18:57 | NUR ---
RECIEVED IN ICCU FOR ELVATED HEART RATE AND MOTTLING TO NECK AWAKE, ALERT AND ORIENTED, IV SITES X 2 TO RIGHT ARM/HAND
--- NOTE | 2019-07-18 18:57 | NUR ---
TRANSFERRED TO ICU, REPORT GIVEN.
--- NOTE | 2019-07-18 19:07 | NUR ---
LACTIC ACID 3.2 UPON ADM TO ICCU
--- NOTE | 2019-07-18 19:23 | NUR ---
DR DELGADO NOTIFIED OF LACTIC ACID OF 3.2.
--- NOTE | 2019-07-18 19:48 | NUR ---
ADDENDUM: DR RENE WAS NOTIFIED OF ELEVATED LACTIC ACID, NOT DR DELGADO.
--- NOTE | 2019-07-18 19:51 | NUR ---
DR RENE HERE TO SEE PT. CONDITION DISCUSSED.
--- NOTE | 2019-07-18 20:38 | NUR ---
URINARY FREQUENCY CONTINUES. I HAVE PLACED URINAL X 4 SINCE 1899. PO INTAKE IS GOOD, BUT I DID GIVE ZOFRAN ORDERED AT 2009 PT HAD EMESIS PRIOR TO ARRIVAL TO ICU... EFFECTIVE PER PT. ALSO, NS INFUSES AT 100CC/HR AND CARDIZEM GTT DECREASED TO 5MG/HR HR STAYING UPPER 90'S.
[2019-07-19] VITALS (7 sets, daily range): BP systolic 106–145; BP diastolic 44–60
--- NOTE | 2019-07-19 02:38 | NUR ---
HR HAD BEEN REMAINING IN THE 80'S AND SOME UPPER 70'S. CARDIZEM GTT OFF SINCE 214 AND HR UNCHANGED.
--- NOTE | 2019-07-19 03:30 | NUR ---
PT LAYING ON HIS SIDE, CURLED UP AND SLEEPING. HR REMAINS 80'S.
--- NOTE | 2019-07-19 05:18 | NUR ---
PT RETURNS TO SLEEP EASILY. HR REMAINS STABLE IN 70'S - 80'S.
--- NOTE | 2019-07-19 07:45 | NUR ---
PATIENT RESTING ON HIS LEFT SIDE. PATIENT DENIES ANY PAIN, SHORTNESS OF BREATHE, OR NAUSEA UPON ASSESSMENT. CAP REFILL SLUGGISH BUT NO DISCOLORATION NOTED. PATIENT RESPIRATION EASY AND NON-LABORED. PATIENT ABLE TO ANSWER QUESTIONS APPROPRIATELY, RIGHT SIDED WEAKNESS NOTED DURING ASSESSMENT FROM PREVIOUS CVA. PATIENT IS CURRENTLY AFIB/FLUTTER IN THE 60-70'S ON THE MONITOR. CALL LIGHT WITHIN REACH. SEE ASSESSMENT.
--- NOTE | 2019-07-19 08:10 | NUR ---
DR. WALKER IN THE UNIT TO DISCUSS PATIENT CARE. PATIENT CONDITION REVIEWED. LABS ORDERED.
--- NOTE | 2019-07-19 08:22 | NUR ---
Occupational Therapy referral received for d/c planning 07/18/19 when patient in room 523-1. Decline in medical status with patient transferred to ICCU. When medically stable and if patient requires an OT evaluation, then a new order will be needed. On 07/23/19 patient declined the OT evaluation offered. Thank you. Papo Huerta OTR/l
[2019-07-19 08:33] LABS: HEMATOCRIT 26.8 % (42.0-52.0); HEMOGLOBIN 8.5 g/dl (14.0-18.0); MEAN CELL VOLUME 84.8 fl (80.0-94.0); MEAN CORPUSCULAR HGB 26.9 pg (27.0-31.0); MEAN CORPUSCULAR HGB CONC 31.7 g/dl (33.0-37.0); MEAN PLATELET VOLUME 10.4 fl (9.6-12.3); PLATELET COUNT AUTOMATED 236 10*3/uL (130-400); RED BLOOD COUNT 3.16 10*6/uL (4.50-5.90); RED CELL DISTRI WIDTH 17.9 % (0-14.5); WHITE BLOOD COUNT 35.4 10*3/uL (4.8-10.8)
--- NOTE | 2019-07-19 08:40 | NUR ---
DR. CLEARY IN TO SEE PATIENT AND DISCUSS PLAN OF CARE.
[2019-07-19 08:45] LABS: BUN 17 mg/dl (7-24); CHLORIDE 107 mmol/L (98-107); CREATININE 0.84 mg/dL (0.70-1.30); POTASSIUM 3.4 mmol/L (3.5-5.1); SODIUM 141 mmol/L (136-145)
[2019-07-19 08:51] LABS: PLATELET SUFFICIENCY NORMAL (NORMAL); POLYCHROMASIA SLIGHT; TARGET CELLS MODERATE; TOTAL CELLS COUNTED 100 #CELLS; TOXIC GRANULATION SLIGHT
--- NOTE | 2019-07-19 09:50 | NUR ---
DR. DUGGAN AND INFECTIOUS DISEASE RESIDENTS IN TO SEE PATIENT AND DISCUSS ABX TX AND PLAN OF CARE. PATIENT CONDITION REVIEWED. BLOOD CULTURES ORDERED.
--- NOTE | 2019-07-19 10:55 | NUR ---
PATIENT BATHED WHILE USING BESIDE COMMODE. PATIENT TOLERATED STANDING AND PIVOTING WELL WITH MINIMAL ASSISTANCE. PATIENT HAD A LARGE BOWEL MOVEMENT AT THIS TIME. BED CHANGE PERFORMED. PATIENT REPOSITIONED BACK IN BED FOR COMFORT, CALL LIGHT WITHIN REACH.
--- NOTE | 2019-07-19 11:00 | NUR ---
Clinching Machine Operator in to see patient. No new needs or request at this time. When medically stable he will be discharged to [facility]. Per multidisciplinary discharge planning meeting patient will be moved out of the unit today.
--- NOTE | 2019-07-19 15:28 | NUR ---
PHYSICAL THERAPY Physical therapy evaluation completed, 4E. Full details to follow. Moderate complexity determined after evaluation/chart review, 472[address]. PT to work on strength, gait, balance, safety and endurance. Recommending SNF at discharge. Thank you Janeth Thornton, PT, DPT
--- NOTE | 2019-07-19 20:45 | NUR ---
PATIENT RESTING IN BED. BED ALARM ON FOR SAFETY. LUNGS DIMINISHED THROUGHOUT. BS NORMOACTIVE X4. CALL LIGHT WITHIN REACH. NO OTHER NEEDS PER PATIENT.
[2019-07-20] VITALS: BP 114/66
--- NOTE | 2019-07-20 00:20 | NUR ---
24 HR chart check completed.
--- NOTE | 2019-07-20 05:29 | NUR ---
PATIENT ASSISTED TO BATHROOM AND BACK BY STAFF. BED LOCKED IN LOWEST POSITION. BED ALARM ON FOR SAFETY.
[2019-07-20 06:36] LABS: BASO # 0.1 10*3/uL (0.0-0.1); BASO % 0.3 % (0.0-1.0); EOS # 0.1 10*3/uL (0.0-0.4); EOS % 0.5 % (1.0-4.0); HEMATOCRIT 27.4 % (42.0-52.0); HEMOGLOBIN 8.5 g/dl (14.0-18.0); LYMPH # 1.6 10*3/uL (1.3-4.4); MEAN CELL VOLUME 84.6 fl (80.0-94.0); MEAN CORPUSCULAR HGB 26.2 pg (27.0-31.0); MEAN PLATELET VOLUME 11.2 fl (9.6-12.3); MONO # 0.7 10*3/uL (0.1-1.0); MONO % 3.7 % (3.0-9.0); NEUT # 15.5 10*3/uL (2.3-7.9); PLATELET COUNT AUTOMATED 224 10*3/uL (130-400); RED BLOOD COUNT 3.24 10*6/uL (4.50-5.90)
[2019-07-20 06:49] LABS: ALBUMIN 1.7 gm/dl (3.1-4.5); ALKALINE PHOSPHATASE 936 U/L (45-117); BUN 21 mg/dl (7-24); CHLORIDE 107 mmol/L (98-107); POTASSIUM 3.8 mmol/L (3.5-5.1); SGOT/AST 77 IU/L (3-35); SGPT/ALT 63 U/L (12-78); SODIUM 139 mmol/L (136-145); TOTAL PROTEIN 5.2 gm/dL (6.4-8.2)
--- NOTE | 2019-07-20 07:17 | NUR ---
Patient accepted to [facility], [place] [facility] clear, 3 night stay complete. Patient is ok to go when medically stable for discharge.
[2019-07-20 08:00] VITALS: BP 170/84
--- NOTE | 2019-07-20 10:48 | NUR ---
TRUCK DRIVER SALESPERSON faxed updates to [facility] -MANJULA Pérez
--- NOTE | 2019-07-20 11:15 | NUR ---
PHYSICAL THERAPY Patient seen this am 1;1 for therapy visit and was resting supine in bed upon therapist arrival. Patient identified by name / and reports no new c/o's. Patient transfers supine to sit EOB with MOD A, then sit to stand with MIN A, ambulating 30'x 1 ad margot in room, walker, CGA x 1. Patient was very cautious during all standing activities, demonstrating increased difficulty with R hand senior scrum master strength navigating walker. Patient fatigues quickly, needing seated rest break before completing several sit to stand transfers from low chair surface, MOD A. Patient remained in chair with call light, tray table, telephone and body alarm for safety. Will continue per POC as tolerated, total treatment time 14 minutes. Radhames Ayres, SUPERVISOR CONTINGENTS
[2019-07-20 12:00] VITALS: BP 142/72
--- NOTE | 2019-07-20 13:50 | NUR ---
NURSE TO NURSE CALLLED INTO IMAN AT [facility]
--- NOTE | 2019-07-20 14:04 | NUR ---
PERFORMING ARTS TECHNICIANS placed POA/HC papers in patients chart.
--- NOTE | 2019-07-20 14:34 | NUR ---
Discharge instructions reviewed with patient/family. Patient receptive and verbalizes understanding. Follow-up care arranged. Written instructions given to patient/family. JOVANNA ANGEL
--- NOTE | 2019-07-20 15:20 | NUR ---
PHYSICAL THERAPY CO-SIGN I approve of the Physical Therapy notes written above. Linh Dos Santos PT
--- NOTE | 2019-07-20 15:21 | NUR ---
PHYSICAL THERAPY CO-SIGN I approve of the Physical Therapy notes written above. Linh DosS antos PT
--- NOTE | 2019-07-23 08:03 | NUR ---
PHYSICAL THERAPY CO-SIGN I approve of the Physical Therapy notes written above Linh Dos Santos PT
--- NOTE | 2019-07-23 12:12 | NUR ---
[facility]ified [facility] of [facility]
== END 2019-07-20 14:34 | disposition other institution (70) | DRG 871 ==
LOC: ED 10:06 → EDHOLD 13:41 → 5E 13:41 → ICCU 07-18 19:38 → 4E 07-19 13:58
PROVIDERS: Emergency Medicine; Family Medicine; Hospitalist; Internal Medicine; Internal Medicine Gastroenterology; Registered Nurse; ADMIT Emergency Medicine
PROC: 0FBC8ZX Excision of Ampulla of Vater, Via Natural or Artificial Opening Endoscopic, Diagnostic (ICD-10-PCS; principal; 2019-07-11)
PROC: 0F798DZ Dilation of Common Bile Duct with Intraluminal Device, Via Natural or Artificial Opening Endoscopic (ICD-10-PCS; principal; 2019-07-11)
DX: A41.9 Sepsis, unspecified organism (principal); G93.41 Metabolic encephalopathy; E43 Unspecified severe protein-calorie malnutrition; K83.1 Obstruction of bile duct; I50.33 Acute on chronic diastolic (congestive) heart failure; K83.09 Other cholangitis; D68.59 Other primary thrombophilia; E87.1 Hypo-osmolality and hyponatremia; N39.0 Urinary tract infection, site not specified; K81.0 Acute cholecystitis; Z68.1 Body mass index [BMI] 19.9 or less, adult; N28.1 Cyst of kidney, acquired; R91.1 Solitary pulmonary nodule; B96.89 Other specified bacterial agents as the cause of diseases classified elsewhere; I11.0 Hypertensive heart disease with heart failure; D64.9 Anemia, unspecified; F32.9 Major depressive disorder, single episode, unspecified; K44.9 Diaphragmatic hernia without obstruction or gangrene; I48.20 Chronic atrial fibrillation, unspecified; I08.1 Rheumatic disorders of both mitral and tricuspid valves; K83.8 Other specified diseases of biliary tract; K86.89 Other specified diseases of pancreas; K57.90 Diverticulosis of intestine, part unspecified, without perforation or abscess without bleeding; E78.2 Mixed hyperlipidemia; K21.9 Gastro-esophageal reflux disease without esophagitis; J44.9 Chronic obstructive pulmonary disease, unspecified; R00.1 Bradycardia, unspecified; I48.21 Permanent atrial fibrillation; R74.8 Abnormal levels of other serum enzymes; E78.00 Pure hypercholesterolemia, unspecified; R74.0 Nonspecific elevation of levels of transaminase and lactic acid dehydrogenase [LDH]; Z86.73 Personal history of transient ischemic attack (TIA), and cerebral infarction without residual deficits; Z91.041 Radiographic dye allergy status; Z87.891 Personal history of nicotine dependence; Z79.899 Other long term (current) drug therapy; Z79.01 Long term (current) use of anticoagulants

== ENCOUNTER 2019-08-09 18:58 | Inpatient (IN) | payer MEDICARE ==
[~2019-08-09] VITALS: Ht 172.7 cm; Wt 53.8 kg
[~2019-08-09 18:58] MED LIST changes: +'CIPRO500 M1 PO; +ATORVASTATIN CA40 M1 PO; +DILTIAZEM CD240 MG PO; +FLAGYL500 MG PO; +LISINOPRIL5 MG PO
[2019-08-09 19:06] VITALS: BP 168/82
--- NOTE | 2019-08-09 20:33 | NUR ---
FLU SWAB OBTAINED AND SENT TO THE LAB.
[2019-08-09 20:34] LABS: BASO # 0.1 10*3/uL (0.0-0.1); BASO % 0.4 % (0.0-1.0); EOS # 0.1 10*3/uL (0.0-0.4); EOS % 0.4 % (1.0-4.0); HEMATOCRIT 31.2 % (42.0-52.0); HEMOGLOBIN 9.3 g/dl (14.0-18.0); LYMPH # 1.4 10*3/uL (1.3-4.4); LYMPH % 10.4 % (27.0-41.0); MEAN CELL VOLUME 89.9 fl (80.0-94.0); MEAN CORPUSCULAR HGB 26.8 pg (27.0-31.0); MEAN CORPUSCULAR HGB CONC 29.8 g/dl (33.0-37.0); MEAN PLATELET VOLUME 11.3 fl (9.6-12.3); MONO # 0.9 10*3/uL (0.1-1.0); MONO % 6.4 % (3.0-9.0); NEUT # 11.2 10*3/uL (2.3-7.9); PLATELET COUNT AUTOMATED 257 10*3/uL (130-400); RED BLOOD COUNT 3.47 10*6/uL (4.50-5.90); WHITE BLOOD COUNT 13.7 10*3/uL (4.8-10.8)
[2019-08-09 20:54] LABS: ALBUMIN 2.5 gm/dl (3.1-4.5); ALKALINE PHOSPHATASE 468 U/L (45-117); BUN 12 mg/dl (7-24); CHLORIDE 110 mmol/L (98-107); CREATININE 0.85 mg/dL (0.70-1.30); POTASSIUM 3.2 mmol/L (3.5-5.1); SGOT/AST 30 IU/L (3-35); SGPT/ALT 22 U/L (12-78); SODIUM 143 mmol/L (136-145); TOTAL PROTEIN 6.1 gm/dL (6.4-8.2)
[2019-08-09 20:55] LABS: TROPONIN I < 0.015 ng/ml (<0.045)
--- NOTE | 2019-08-09 20:56 | NUR ---
LACTIC ACID OF 2.3. JADYN FELTON AWARE OF CRITICAL.
--- NOTE | 2019-08-09 21:57 | NUR ---
PT'S NIECE AND SISTER UPDATED PER PT REQUEST.
--- NOTE | 2019-08-09 23:05 | NUR ---
REPORT GIVEN TO NURSE FROM [facility].
[2019-08-09 23:29] VITALS: BP 164/101
--- NOTE | 2019-08-09 23:29 | NUR ---
A 83, admitted to , under the services of NOAH Read DO with a diagnosis of HCAP, SEPSIS. Chief complaint is SOB. Patient arrived via bed from ER. Monitor applied. Initial assessment completed. Vital signs taken and recorded. NOAH READ DO notified of admission to the unit. Orders received. See assessment for past medical history, medications and allergies. Patient and/or family oriented to unit. [facility] ICCU visitation policy reviewed. Clothing/patient valuable form completed. SUPA MARTINEZ
--- NOTE | 2019-08-09 23:29 | NUR ---
LAB CALLED WITH CRITICAL LACTIC OF 2.2
--- NOTE | 2019-08-09 23:48 | NUR ---
CONTACTED DR JIN ABOUT THE PATIENT ARRIVING TO FLOOR. SHE IS COMING DOWN TO CHECK OUT THE PATIENT DUE TO HIGH HR AND BP.
--- NOTE | 2019-08-09 23:50 | NUR ---
MADE AWARE OF PATIENT DISTRESS AT THIS TIME WITH BREATHING, PLACED ON 02 2L FOR SPO2 OF MID 80'S, SATING MID 90'S. HEART RATE IS UP TO 140'S PER CM, AFIB. STATED SHE WILL COME SEE PATIENT
--- NOTE | 2019-08-09 23:54 | NUR ---
STAT EKG ORDERED PER , RT INFORMED.
[2019-08-10] VITALS (10 sets, daily range): BP systolic 132–165; BP diastolic 69–101
[2019-08-10] MEDS ORDERED: ACETAMINOPHEN325 M2 PO (00:06)
[2019-08-10] MEDS ORDERED: ALBUTEROL0.63 MG/3 INH (00:07)
[2019-08-10] MEDS ORDERED: VITAMIN C60 MG PO (00:08)
[2019-08-10] MEDS ORDERED: METOPROLOL SUCC50 M1 PO (00:08)
--- NOTE | 2019-08-10 00:09 | NUR ---
PRESENT INFORMED THAT HOME MED ARE VERIFIED BY PRISON LIST
--- NOTE | 2019-08-10 01:33 | NUR ---
STATED TO GIVE HOME MED TOPROL XL, ASKED IF SHE WANTED TO GIVE A ONE TIME DOSE INSTEAD D/T MEDICATION BEING EXTENDED RELEASE. STATED OK TO PLACE X1 ORDER NOW, LOPRESSOR 25MG ORDER PER WISHES.
--- NOTE | 2019-08-10 02:20 | NUR ---
IN TO SEE PATIENT D/T PATIENTS HR 140-150'S. STATED TO GIVE HOME DOSE OF CARDIZEM. PATIENT'S SPO2 IS WNL AT THIS TIME 93-98%, IS AWARE OF THIS, SHE INCREASED O2 TO 5L FROM 3L D/T PATIENT NOTED DISTRESS, "BELLY" BREATHING/LABORED, AUDIBLE WHEEZING, SUGGEST USING PRN MORPHINE TO RELAXZ LUNGS, STATED NO.
--- NOTE | 2019-08-10 02:28 | NUR ---
IN TO SEE PATIENT WELL. INFORMED I WOULD CALL JI J[facility].
--- NOTE | 2019-08-10 02:30 | NUR ---
[facility] CALLED AND ASKED IF PATIENT RECIEVED HIS DAILY MEDICATION BEFORE COMING INTO ER, STATED YES THAT HE RECIEVED EVERYHTING AND THAT THEY ARE UNAWARE IF HE SEES A MODEL BUILDER DISPLAY.
--- NOTE | 2019-08-10 03:15 | NUR ---
PATIENT FOUND WITH O2 NC OFF, PATIENT HAD TAKEN OFF. EDUCATION PROVIDED. HR 160'S FROM BEING AGITATED. SPO2 90'S AFTER NC PUT INTO PLACE. CARDIZEM GTT INCREASE TO 15MG/HR, WILL MONITOR
--- NOTE | 2019-08-10 03:25 | NUR ---
HR NOTED 100-110'S, CARDIZEM GTT DECREASED 10MG/HR
--- NOTE | 2019-08-10 03:30 | NUR ---
PRESENT ON FLOOR, INFORMED OF PATIENT STATUS. INFORMEED THAT HR IS BETTER 90-100'S ON 10MG/HR, AND RESP ARE NOTABLY BETTER WHEN RESTING. STATED HE WILL CHECK ON PATIENT
--- NOTE | 2019-08-10 03:39 | NUR ---
24 HR chart check completed.
--- NOTE | 2019-08-10 04:31 | NUR ---
CARDIZEM GTT DECREASED TO 5MG/HR, HR WAS 70- LOW 90'S.
--- NOTE | 2019-08-10 04:34 | NUR ---
PRESENT ON FLOOR. ASK IF APPROPIATE TO ORDER CTA D/T HOW PATIENT LUNG SOUNDS CRACKLE AND EDEMA. ASKED IF PATIENT RECIEVED SEPSIS BOLUS/FLUIDS, INFORMED THEY WERE NOT STARTED, STATED OK THAT WAS FINE AND HE WOULD LOOK INTO IT.
[2019-08-10 06:03] LABS: ALBUMIN 2.5 gm/dl (3.1-4.5); ALKALINE PHOSPHATASE 482 U/L (45-117); BUN 10 mg/dl (7-24); CHLORIDE 108 mmol/L (98-107); CREATININE 0.83 mg/dL (0.70-1.30); PHOSPHOROUS 2.9 mg/dL (2.5-4.9); POTASSIUM 3.4 mmol/L (3.5-5.1); SGOT/AST 20 IU/L (3-35); SGPT/ALT 24 U/L (12-78); SODIUM 142 mmol/L (136-145); TOTAL PROTEIN 6.4 gm/dL (6.4-8.2)
--- NOTE | 2019-08-10 06:06 | NUR ---
DR. GUTIÉRREZ ON THE FLOOR AND STATES THAT HE WANTS DR. CLEARY CONSULTED AND THAT HE WILL CALL.
[2019-08-10 06:08] LABS: TROPONIN I < 0.015 ng/ml (<0.045)
--- NOTE | 2019-08-10 06:13 | NUR ---
NOTIFIED CARDIOLOGY ANSWERING SERVICE OF CONSULT AND LEFT MESSAGE
--- NOTE | 2019-08-10 06:16 | NUR ---
SPOKE TO DR HDZ AND HE WILL BE IN THIS MORNING TO SEE THE PATIENT.
[2019-08-10 06:26] LABS: BASO # 0.1 10*3/uL (0.0-0.1); BASO % 0.6 % (0.0-1.0); EOS % 0.3 % (1.0-4.0); HEMATOCRIT 32.4 % (42.0-52.0); HEMOGLOBIN 9.6 g/dl (14.0-18.0); LYMPH # 0.8 10*3/uL (1.3-4.4); LYMPH % 6.1 % (27.0-41.0); MEAN CELL VOLUME 90.8 fl (80.0-94.0); MEAN CORPUSCULAR HGB 26.9 pg (27.0-31.0); MEAN CORPUSCULAR HGB CONC 29.6 g/dl (33.0-37.0); MEAN PLATELET VOLUME 10.9 fl (9.6-12.3); MONO # 0.7 10*3/uL (0.1-1.0); MONO % 5.2 % (3.0-9.0); NEUT # 11.8 10*3/uL (2.3-7.9); NEUT % 87.1 % (47.0-73.0); PLATELET COUNT AUTOMATED 255 10*3/uL (130-400); RED BLOOD COUNT 3.57 10*6/uL (4.50-5.90); RED CELL DISTRI WIDTH 20.9 % (0-14.5); WHITE BLOOD COUNT 13.6 10*3/uL (4.8-10.8)
--- NOTE | 2019-08-10 06:30 | NUR ---
CARDIZEM DECREASED TO 2.5MG/HR, HR IS IN THE 70-80'S.
--- NOTE | 2019-08-10 06:51 | NUR ---
NOTIFIED DR GARCIA THAT PT IS BEING TAKEN OFF OF CARDZEM DRIP DUE TO HR REACHING IN THE 60'S HE STATES OK
--- NOTE | 2019-08-10 08:14 | NUR ---
PATIENT IS PLEASANT, RESTING COMFORTABLY AT THIS TIME. ON R/A, MAINTAINING 94%. EDILBERTO VELIZ
--- NOTE | 2019-08-10 08:24 | NUR ---
POX CHECKED ON ROOM AIR, POX WAS 85% AND DID NOT IMPROVE SO PT WAS PLACED BACK ON 3L/NC PER INSTRUCTION OF RESPIRATORY THERAPY, POX NOW 93% AFTER A FEW MINUTES EDILBERTO CRUZ SPLAYLACC
--- NOTE | 2019-08-10 09:00 | NUR ---
Architectural Superintendent in to see patient. He is currently short term at [facility] and plans to return there upon discharge. kit planner following. He states he ambulates with minimal assistance. Treating pneumonia.
--- NOTE | 2019-08-10 10:30 | NUR ---
IV SITE IN MICHAEL SITE LEAKING AND PAINFUL SO WAS DISCONTINUED, SITE ASYMPTOMATIC EDILBERTO CRUZ SPNRCC
--- NOTE | 2019-08-10 12:42 | NUR ---
PT RESTING, HAS A VISITOR. EDILBERTO JADECC
--- NOTE | 2019-08-10 23:26 | NUR ---
MADE AWARE THE HR INCREASE TO 150'S WHEN PATIENT WAS TAKEN TO BSC. INFORMED AFTER 10 MINUTE OF REST HR ONLY DECREASE TO 110-120'S. MANUAL WASS LIAM OF 166/100. STATED HE WOULD CALL BACK
--- NOTE | 2019-08-10 23:45 | NUR ---
MADE AWARE THAT HR IS 90-LOW 100'S NOW STATED OK
[2019-08-11] VITALS (7 sets, daily range): BP systolic 123–166; BP diastolic 80–100
--- NOTE | 2019-08-11 00:15 | NUR ---
ONE TRIME DOSE CARIDZEM HELD FOR RIGHT NOW. HR 70-LOW 90'S.
--- NOTE | 2019-08-11 00:45 | NUR ---
INFORMED THAT CARDIZEM WAS ON HOLD PER NURSING JUDGEMENT D/T HR MAINTAINING 70-LOW 90'S, INFORM THAT ILL HOLD IN CASE NEEDED LATER. STATED THAT WAS FINE.
--- NOTE | 2019-08-11 01:15 | NUR ---
PATIENT HAD TAKEN 02 OFF. EDUCATION PROVIDED. PLACED BACK ON 02 AT 2L SPO2 89-90%, INCREASE TO 3L, SPO2 92-93%
--- NOTE | 2019-08-11 02:07 | NUR ---
24 HR chart check completed.
--- NOTE | 2019-08-11 03:15 | NUR ---
PATIENT ASSISTED TO BSC HR IMMEDIATELY UP TO 150'S, LABORED RESP. ON PRESENT IN ROOM TO SEE PATIENT. NOTED RESP STATUS AND HR ELEVATED FROM MINIMAL EXERTION, FATIGUE. STATED OK TO GIVE EARLIER DOSE ORDER OF IV CARDIZEM AT THIS TIME.
--- NOTE | 2019-08-11 04:00 | NUR ---
PATIENT SLEEPING, EYES CLSOED. NO DISTRESS NOTED. CALL LIGHT WITHIN REACH
--- NOTE | 2019-08-11 05:50 | NUR ---
PATIENT ASSISTED TO BSC, HR INCREASED TO 150'S, LABORED BREATHING. PAITENT NOTED TO HAVE INCREASE EDEMA TO R SIDE, INCLUDING FACE. ATTEMPTED TO REPOSITION PATIENT BACK INTO BED ON LEFT SIE, PATIENT ABSOLUTELY REFUSED EVEN AFTER EDUCATION. STATED TO PLACE MEZA CATH AND GIVE IV LASIX WILL BE ORDERED.
--- NOTE | 2019-08-11 06:07 | NUR ---
STATED TO ALBUMIN NOW, PLACE MEZA. ONCE MEZA IS IN THEN CAN GIVE IV LASIX 40MG.
--- NOTE | 2019-08-11 06:20 | NUR ---
18F MEZA CATH PLACED, 10CC FILLED INTO BALLOON. PATIENT TOLERATED WELL. 150CC URINE PRODUCED.
--- NOTE | 2019-08-11 07:00 | NUR ---
Hep Lock discontinued,FROILAN LEAKING. Site symptomatic. Pressure applied. Sterile dressing applied. DAYANARA DALEY
[2019-08-11 07:06] LABS: BASO # 0.1 10*3/uL (0.0-0.1); BASO % 0.8 % (0.0-1.0); EOS # 0.1 10*3/uL (0.0-0.4); EOS % 0.6 % (1.0-4.0); HEMATOCRIT 34.5 % (42.0-52.0); HEMOGLOBIN 10.2 g/dl (14.0-18.0); LYMPH # 1.5 10*3/uL (1.3-4.4); LYMPH % 11.5 % (27.0-41.0); MEAN CELL VOLUME 91.5 fl (80.0-94.0); MEAN CORPUSCULAR HGB 27.1 pg (27.0-31.0); MEAN CORPUSCULAR HGB CONC 29.6 g/dl (33.0-37.0); MEAN PLATELET VOLUME 11.3 fl (9.6-12.3); MONO # 0.9 10*3/uL (0.1-1.0); MONO % 7.1 % (3.0-9.0); NEUT # 10.2 10*3/uL (2.3-7.9); NEUT % 79.5 % (47.0-73.0); PLATELET COUNT AUTOMATED 302 10*3/uL (130-400); RED BLOOD COUNT 3.77 10*6/uL (4.50-5.90); RED CELL DISTRI WIDTH 20.5 % (0-14.5); WHITE BLOOD COUNT 12.8 10*3/uL (4.8-10.8)
--- NOTE | 2019-08-11 07:15 | NUR ---
IV started FROILAN with #22 protective cath after 0 attempts. Site prepped with Chloroprep. Sterile dressing applied. Patient tolerated procedure well. DAYANARA GILL
--- NOTE | 2019-08-11 07:25 | NUR ---
PATIENT PLACED UP IN CHAIR.
[2019-08-11 07:36] LABS: ALBUMIN 2.4 gm/dl (3.1-4.5); BUN 10 mg/dl (7-24); CHLORIDE 110 mmol/L (98-107); POTASSIUM 3.6 mmol/L (3.5-5.1); SGOT/AST 22 IU/L (3-35); SGPT/ALT 21 U/L (12-78); SODIUM 144 mmol/L (136-145)
[2019-08-11 07:38] LABS: ALKALINE PHOSPHATASE 399 U/L (45-117); CREATININE 0.97 mg/dL (0.70-1.30); TOTAL PROTEIN 6.2 gm/dL (6.4-8.2)
--- NOTE | 2019-08-11 08:12 | NUR ---
NOTIFIED OF RESTING HR OF 150'S AT THIS TIME; ORDER OBTAINED FOR 20MG IV CARDIZEM, HOLD PO CARDIZEM, AND GIVE REGULAR SCHEDULED METOPROLOL. GIVEN AT THIS TIME; WILL MONITOR.
--- NOTE | 2019-08-11 08:25 | NUR ---
NOTIFIED PATIENT IS REFUSING TO GO TO RADIOLOGY; ORDER OBTAINED FOR PORTABLE CXR. NOTIFIED WELL OF WORSENING SOB & SWELLING.
[2019-08-11 08:28] LABS: ABG BASE EXCESS -1.5 mmol/L (-2.0-2.0); ARTERIAL BLOOD GAS PH 7.355 (7.35-7.45)
--- NOTE | 2019-08-11 12:30 | NUR ---
PT TRANSFERED TO [facility]-4 VIA BED. PT AAOX3. TACHYCARDIC RESPIRATIONS AT 28. WHEEZING AND DIFFUSE RHONCHI NOTED IN LUNG VU. POX 94% ON 3L NC. HR AFIB 120'S. EDEMA NOTED TO RIGHT SIDE OF FACE AND RIGHT ARM. MEZA PATENT FOR CLEAR YELLOW URINE. TEDS HOSE BILAT. NO EDEMA NOTED TO LOWER EXTREMITIES AT THIS TIME. WILL CONTINUE TOMONITOR PT.
--- NOTE | 2019-08-11 12:35 | NUR ---
IN TO SEE PATIENT AND ORDERED TO TRANSFER TO ICCU D/T WORSENING IN CONDITION. NOTIFIED HOSPITAL UNIT CLERK AND TRANSFERRED TO BED 4
--- NOTE | 2019-08-11 12:47 | NUR ---
NOTIFIED MARIELLA HURTADO OF PATIENT TRANSFERRED TO ICCU. HER NUMBER IS [phone].
--- NOTE | 2019-08-11 12:58 | NUR ---
BIPAP APPLIED BY RESP. THERAPY PER DR CLEARY'S ORDER. WILL CONTINUE TO MONITOR PT.
--- NOTE | 2019-08-11 13:15 | NUR ---
PT'S NIECE IN TO VISIT. UPDATED HER ON PT'S CONDITION AND PLAN OF CARE.
--- NOTE | 2019-08-11 13:27 | NUR ---
12:45 PT ADMITTED TO ICU. PT ON 4 L NC. RESPS RREGUALR AND SLIGHTLY LABORED. BIPAP INITIATED AT 18/06. PT TOLERATING WELL. SPO2 99 HR 88 RR 20.
--- NOTE | 2019-08-11 15:23 | NUR ---
PT RESTING. TOLERATING BIPAP WELL AT THIS TIME.
--- NOTE | 2019-08-11 17:22 | NUR ---
PT RESTING. NO ACUTE DISTRESS NOTED AT THIS TIME.
--- NOTE | 2019-08-11 22:20 | NUR ---
PATIENT GIVEN A COMPLETE BED BATH AND LINENS CHANGED AT THIS TIME. PATIENT TOLERATED WELL AND WAS PLACED ON BIPAP ONCE COMPLETED.
[2019-08-12] VITALS: BP 138/107
[2019-08-12 04:00] VITALS: BP 145/115
[2019-08-12 05:51] LABS: BASO # 0.1 10*3/uL (0.0-0.1); BASO % 0.9 % (0.0-1.0); EOS # 0.2 10*3/uL (0.0-0.4); EOS % 2.2 % (1.0-4.0); HEMOGLOBIN 9.7 g/dl (14.0-18.0); LYMPH # 1.1 10*3/uL (1.3-4.4); LYMPH % 11.8 % (27.0-41.0); MEAN CELL VOLUME 89.2 fl (80.0-94.0); MEAN CORPUSCULAR HGB 26.2 pg (27.0-31.0); MEAN CORPUSCULAR HGB CONC 29.4 g/dl (33.0-37.0); MEAN PLATELET VOLUME 11.2 fl (9.6-12.3); MONO # 0.6 10*3/uL (0.1-1.0); MONO % 6.2 % (3.0-9.0); NEUT # 7.3 10*3/uL (2.3-7.9); NEUT % 78.5 % (47.0-73.0); PLATELET COUNT AUTOMATED 248 10*3/uL (130-400); RED CELL DISTRI WIDTH 19.7 % (0-14.5); WHITE BLOOD COUNT 9.3 10*3/uL (4.8-10.8)
[2019-08-12 06:10] LABS: BUN 8 mg/dl (7-24); CHLORIDE 105 mmol/L (98-107); POTASSIUM 2.7 mmol/L (3.5-5.1); SODIUM 139 mmol/L (136-145)
[2019-08-12 06:12] LABS: CREATININE 1.04 mg/dL (0.70-1.30)
--- NOTE | 2019-08-12 07:38 | NUR ---
Shift chart check completed.
[2019-08-12 08:00] VITALS: BP 150/82
--- NOTE | 2019-08-12 09:07 | NUR ---
AM ASSESSMENT DONE EARLIER WITH FREQ HARSH MOIST PROD COUGH FOR THICK YELLOW SPUTUM. SPECIMEN SENT TO LAB
--- NOTE | 2019-08-12 11:41 | NUR ---
NOON BMP CANCELLED POTASSIUM IS STILL INFUSING. WILL REORDER AFTER COMPLETED
[2019-08-12 12:00] VITALS: BP 132/82
--- NOTE | 2019-08-12 13:03 | NUR ---
PATIENT DOZING OFF & ON - NOT WANTING ANY FOOD AT THIS TIME - RES[facility] THERAPY ROUNDED AND PLACED PATIENT ON BIPAP
[2019-08-12 13:04] LABS: BUN 8 mg/dl (7-24); CHLORIDE 109 mmol/L (98-107); CREATININE 1.05 mg/dL (0.70-1.30); POTASSIUM 3.5 mmol/L (3.5-5.1); SODIUM 140 mmol/L (136-145)
--- NOTE | 2019-08-12 13:34 | NUR ---
DR WISE CALLED WITH LABS & FOBI & SPUTUM RESULTS.
--- NOTE | 2019-08-12 13:55 | NUR ---
DR BARBER CALLED WITH FOBI - LABS TO BE DRAWN IN AM THEN CALLED TO DR BARBER FOR EGD ORDER
--- NOTE | 2019-08-12 15:03 | NUR ---
POSSIBLE EGD EXPLAINED TO PATIENT & GOOD FAMILY FRIEND. REASON FOR IT & RESULTS OF FOBI EXPLAINED. THE PATIENT ADAMATELY REFUSED TO ALLOW A SCOPE OF ANY KIND. POSSIBLE RISKS IF REFUSE EXPLAINED BUT PATIENT SAID HE WAS NOT GOING TO HAVE IT NO MATTER WHAT
[2019-08-12 16:00] VITALS: BP 126/100
--- NOTE | 2019-08-12 16:48 | NUR ---
IV started right wrist with #22 protective cath after 1 attempts. Site prepped with Chloroprep. Sterile dressing applied. Patient tolerated procedure well. REPOSITIONED KRYSTA VARGAS
--- NOTE | 2019-08-12 16:48 | NUR ---
Hep Lock discontinued. Site symptomatic/TENDERNESS STARTING. Pressure applied. Sterile dressing applied. KRYSTA VARGAS
--- NOTE | 2019-08-12 16:54 | NUR ---
REDNESS AND SWELLING TO RT SIDE OF FACE ALMOST GONE - EDEMA & REDNESS TO RT ARM MUCH IMPROVED
[2019-08-12 20:00] VITALS: BP 125/84
[2019-08-13] VITALS: BP 106/69
--- NOTE | 2019-08-13 00:15 | NUR ---
PT. OFF BIPAP.
[2019-08-13 04:00] VITALS: BP 158/89
[2019-08-13 04:55] LABS: BASO # 0.1 10*3/uL (0.0-0.1); BASO % 0.7 % (0.0-1.0); EOS # 0.3 10*3/uL (0.0-0.4); EOS % 2.2 % (1.0-4.0); HEMATOCRIT 33.4 % (42.0-52.0); HEMOGLOBIN 10.1 g/dl (14.0-18.0); LYMPH # 1.8 10*3/uL (1.3-4.4); MEAN CELL VOLUME 89.5 fl (80.0-94.0); MEAN CORPUSCULAR HGB 27.1 pg (27.0-31.0); MEAN CORPUSCULAR HGB CONC 30.2 g/dl (33.0-37.0); MEAN PLATELET VOLUME 11.4 fl (9.6-12.3); MONO % 8.1 % (3.0-9.0); NEUT # 8.7 10*3/uL (2.3-7.9); NEUT % 73.7 % (47.0-73.0); PLATELET COUNT AUTOMATED 258 10*3/uL (130-400); RED BLOOD COUNT 3.73 10*6/uL (4.50-5.90); RED CELL DISTRI WIDTH 19.7 % (0-14.5); WHITE BLOOD COUNT 11.9 10*3/uL (4.8-10.8)
[2019-08-13 05:07] LABS: BUN 9 mg/dl (7-24); CHLORIDE 110 mmol/L (98-107); CREATININE 1.13 mg/dL (0.70-1.30); POTASSIUM 3.6 mmol/L (3.5-5.1); SODIUM 144 mmol/L (136-145)
[2019-08-13 08:00] VITALS: BP 160/82
--- NOTE | 2019-08-13 08:12 | NUR ---
PATIENT IS ONCE AGAIN REFUSING THE EGD & WANTS HIS BREAKFAST ORDERED. IMPORTANCE DISCUSSED BUT ADAMATELY REFUSED. AM ASSESSMENT DONE. REDNESS TO RT SIDE OF FACE & RT ARM GONE. RT EYE REMAINS PUFFY AND RT UPPER ARM IS STILL PUFFFY BUT NO EDEMA TO RT LOWER ARM. HIVES TO UPPER BACK, ANTERIOR CHEST & FEW TO BUTTOCK PRESENT BUT NOT RAISED TODAY... HEP LOCK INTACT X2 SITES.
--- NOTE | 2019-08-13 08:40 | NUR ---
DR EVLAZQUEZ ROUNDED. ORDER FOR BNP -- PT VOICED TO HIM HE REFUSED EGD ALSO. DIET RESUMED PATIENT REFUSED CLEAR LIQUIDS & REFUSED EGD
--- NOTE | 2019-08-13 09:00 | NUR ---
Television Production Clerk in to see patient. He is currently short term at [facility] and plans to return there upon discharge. land use planner following. Bipap intermittent during the day and on at HS. Earl mcfarland. gwendolyn Brizuela, zosyn. Pneumonia.
--- NOTE | 2019-08-13 09:03 | NUR ---
DR BARBER MADE AWARE THAT PATIENT IS REFUSING EGD TODAY - PROCEDURE CANCELLED.
--- NOTE | 2019-08-13 09:23 | NUR ---
DR CLEARY ROUNDED - OK TO MOVE OUT OF ICU
--- NOTE | 2019-08-13 09:24 | NUR ---
DR ASHLEY KNOX
--- NOTE | 2019-08-13 09:33 | NUR ---
Patient updated clinicals faxed to [facility] for review. patient came in from short term rehab, ok to return when medically stable for discharge.
[2019-08-13 12:00] VITALS: BP 156/83
[2019-08-13 16:00] VITALS: BP 100/59
--- NOTE | 2019-08-13 16:15 | NUR ---
PT RESTING IN BED. RESP-EASY AND REGULAR. NO C/O AT THIS TIME. OXYGEN IN USE. CALL LIGHT IN REACH. SEE SHIFT ASSESSMENT.
[2019-08-13 20:00] VITALS: BP 166/74
--- NOTE | 2019-08-13 20:20 | NUR ---
PT TOLERATED ROUTINE MED WITH NO PROBLEM. NO C/O AT THIS TIME. CALL LIGHT IN REACH. SEE SHIFT ASSESSMENT. BED ALARM ON.
--- NOTE | 2019-08-13 21:20 | NUR ---
PT TOLERATED ROUTINE MEDICATIONS. NO C/O AT THIS TIME. CALL LIGHT IN REACH. BED ALARM ON.
--- NOTE | 2019-08-13 23:15 | NUR ---
PT REFUSING TO BE PLACED ON BIPAP. HR 81, SpO2 99% ON 2LNC.
[2019-08-14] VITALS: BP 141/84
--- NOTE | 2019-08-14 08:20 | NUR ---
PT SLEEPING IN BED, AWAKENS EASILY. RESP-EASY AND REGULAR. NO C/O AT THIS TIME. CALL LIGHT IN REACH. SEE SHIFT ASSESSMENT.
--- NOTE | 2019-08-14 12:16 | NUR ---
In to see patient to discuss discharge plans. Patient stating he wants to return to [facility] to finish his therapy. Patient normally lives at home alone and states he is not comfortable returning home alone at this time. [facility] notified. Patient is short term and ok to return when medically stable
[2019-08-14] MEDS ORDERED: DILTIAZEM HCL300 M1 PO (14:10)
[2019-08-14] MEDS ORDERED: METOPROLOL SUCC50 M1 PO (14:10)
[2019-08-14] MEDS ORDERED: FLUCONAZOLE100 MG PO (14:10)
[2019-08-14] MEDS ORDERED: DOXYCYCLINE100 M3 PO (14:10)
--- NOTE | 2019-08-14 15:10 | NUR ---
Patient to be discharged today, returning to LTC at [facility]. Zoila Huerta OTR/L
--- NOTE | 2019-08-14 15:30 | NUR ---
MEZA DISCONTINUED PT TOLERATED. URINAL BOTTLE PLACED IN REACH OF PT.
--- NOTE | 2019-08-14 15:40 | NUR ---
CALLED MACRINA JANG GAVE REPORT.
--- NOTE | 2019-08-14 16:26 | NUR ---
Discharge instructions reviewed with patient/AMBULANCE. Patient receptive and verbalizes understanding. Follow-up care arranged. Written instructions given to patient/AMBULANCE. HEPLOCK REMOVED 2X2 APPLIED. HOLTER REMOVED. [facility] ON FLOOR TO TAKE PT VIA STRETCHER. PAPERS GIVEN. EDILBERTO PASTRANA R
== END 2019-08-14 16:26 | disposition other institution (70) | DRG 871 ==
LOC: ED 18:58 → EDHOLD 21:46 → ICCU 21:46 → 4E 21:46 → ICCU 08-11 12:26 → 4E 08-13 12:48
PROVIDERS: Internal Medicine; Physician Assistant; Student in an Organized Health Care Education/Training Program; ADMIT Family Medicine
PROC: 5A09357 Assistance with Respiratory Ventilation, Less than 24 Consecutive Hours, Continuous Positive Airway Pressure (ICD-10-PCS; principal; 2019-08-11)
PROC: 5A09357 Assistance with Respiratory Ventilation, Less than 24 Consecutive Hours, Continuous Positive Airway Pressure (ICD-10-PCS; 2019-08-12)
PROC: 5A09357 Assistance with Respiratory Ventilation, Less than 24 Consecutive Hours, Continuous Positive Airway Pressure (ICD-10-PCS; 2019-08-13)
DX: A41.9 Sepsis, unspecified organism (principal); J18.9 Pneumonia, unspecified organism; E43 Unspecified severe protein-calorie malnutrition; J96.21 Acute and chronic respiratory failure with hypoxia; I50.31 Acute diastolic (congestive) heart failure; J44.0 Chronic obstructive pulmonary disease with (acute) lower respiratory infection; D68.59 Other primary thrombophilia; E87.2 Acidosis; J44.1 Chronic obstructive pulmonary disease with (acute) exacerbation; Z68.1 Body mass index [BMI] 19.9 or less, adult; I48.91 Unspecified atrial fibrillation; E87.6 Hypokalemia; E87.8 Other disorders of electrolyte and fluid balance, not elsewhere classified; R73.9 Hyperglycemia, unspecified; E78.5 Hyperlipidemia, unspecified; K21.9 Gastro-esophageal reflux disease without esophagitis; F32.5 Major depressive disorder, single episode, in full remission; D63.8 Anemia in other chronic diseases classified elsewhere; R73.03 Prediabetes; R91.1 Solitary pulmonary nodule; E55.9 Vitamin D deficiency, unspecified; I11.0 Hypertensive heart disease with heart failure; Y95 Nosocomial condition; K57.90 Diverticulosis of intestine, part unspecified, without perforation or abscess without bleeding; Z79.899 Other long term (current) drug therapy; Z91.041 Radiographic dye allergy status; Z82.49 Family history of ischemic heart disease and other diseases of the circulatory system; Z86.73 Personal history of transient ischemic attack (TIA), and cerebral infarction without residual deficits; Z79.01 Long term (current) use of anticoagulants; Z87.19 Personal history of other diseases of the digestive system

== ENCOUNTER 2019-09-25 07:56 | Emergency (ER) | payer MEDICARE ==
[~2019-09-25] VITALS: Wt 49.9 kg
[~2019-09-25 07:56] MED LIST changes: +ACETAMINOPHEN325 M2 PO; +ALBUTEROL0.63 MG/3 INH; +DILTIAZEM HCL300 M1 PO; +DOXYCYCLINE100 M3 PO; +FLUCONAZOLE100 MG PO; +METOPROLOL SUCC50 M1 PO; +VITAMIN C60 MG PO
[2019-09-25 08:44] LABS: BASO # 0.1 10*3/uL (0.0-0.1); BASO % 0.5 % (0.0-1.0); EOS # 0.1 10*3/uL (0.0-0.4); EOS % 0.9 % (1.0-4.0); HEMATOCRIT 31.7 % (42.0-52.0); HEMOGLOBIN 9.3 g/dl (14.0-18.0); LYMPH # 2.9 10*3/uL (1.3-4.4); LYMPH % 19.5 % (27.0-41.0); MEAN CELL VOLUME 87.1 fl (80.0-94.0); MEAN CORPUSCULAR HGB 25.5 pg (27.0-31.0); MEAN CORPUSCULAR HGB CONC 29.3 g/dl (33.0-37.0); MEAN PLATELET VOLUME 9.9 fl (9.6-12.3); MONO # 0.5 10*3/uL (0.1-1.0); MONO % 3.3 % (3.0-9.0); NEUT # 11.1 10*3/uL (2.3-7.9); NEUT % 75.4 % (47.0-73.0); PLATELET COUNT AUTOMATED 329 10*3/uL (130-400); RED BLOOD COUNT 3.64 10*6/uL (4.50-5.90); RED CELL DISTRI WIDTH 14.2 % (0-14.5); WHITE BLOOD COUNT 14.7 10*3/uL (4.8-10.8)
[2019-09-25 09:01] LABS: ALBUMIN 2.9 gm/dl (3.1-4.5); ALKALINE PHOSPHATASE 157 U/L (45-117); BUN 16 mg/dl (7-24); CHLORIDE 107 mmol/L (98-107); CREATININE 1.28 mg/dL (0.70-1.30); POTASSIUM 2.8 mmol/L (3.5-5.1); SGOT/AST 10 IU/L (3-35); SGPT/ALT 12 U/L (12-78); SODIUM 143 mmol/L (136-145); TOTAL PROTEIN 6.7 gm/dL (6.4-8.2); TROPONIN I < 0.015 ng/ml (<0.045)
[2019-09-25 13:22] VITALS: BP 117/51
== END 2019-09-25 14:24 | disposition short-term general hospital (02) ==
LOC: ED 07:56
PROVIDERS: Emergency Medicine
DX: R56.9 Unspecified convulsions (principal); E87.6 Hypokalemia; R41.82 Altered mental status, unspecified; R25.1 Tremor, unspecified; R47.81 Slurred speech; I48.91 Unspecified atrial fibrillation; J44.9 Chronic obstructive pulmonary disease, unspecified; I11.0 Hypertensive heart disease with heart failure; I50.9 Heart failure, unspecified; K21.9 Gastro-esophageal reflux disease without esophagitis; E78.5 Hyperlipidemia, unspecified; Z91.041 Radiographic dye allergy status; Z79.899 Other long term (current) drug therapy; Z79.2 Long term (current) use of antibiotics; Z86.73 Personal history of transient ischemic attack (TIA), and cerebral infarction without residual deficits; Z87.891 Personal history of nicotine dependence

== ENCOUNTER 2019-09-29 00:35 | Emergency (ER) | payer MEDICARE ==
[~2019-09-29] VITALS: Ht 170.1 cm; Wt 45.4 kg
[2019-09-29 01:16] LABS: BASO # 0.1 10*3/uL (0.0-0.1); BASO % 0.5 % (0.0-1.0); EOS % 0.2 % (1.0-4.0); HEMATOCRIT 26.2 % (42.0-52.0); HEMOGLOBIN 7.9 g/dl (14.0-18.0); LYMPH # 0.9 10*3/uL (1.3-4.4); LYMPH % 6.8 % (27.0-41.0); MEAN CELL VOLUME 86.8 fl (80.0-94.0); MEAN CORPUSCULAR HGB 26.2 pg (27.0-31.0); MEAN CORPUSCULAR HGB CONC 30.2 g/dl (33.0-37.0); MEAN PLATELET VOLUME 10.4 fl (9.6-12.3); MONO # 0.5 10*3/uL (0.1-1.0); MONO % 4.3 % (3.0-9.0); NEUT % 87.9 % (47.0-73.0); PLATELET COUNT AUTOMATED 255 10*3/uL (130-400); RED BLOOD COUNT 3.02 10*6/uL (4.50-5.90); RED CELL DISTRI WIDTH 14.3 % (0-14.5); WHITE BLOOD COUNT 12.5 10*3/uL (4.8-10.8)
[2019-09-29 01:26] LABS: ACT PARTIAL THROMBO TIME 25.4 SECONDS (20.0-32.1)
[2019-09-29 01:31] LABS: ALBUMIN 2.6 gm/dl (3.1-4.5); ALKALINE PHOSPHATASE 123 U/L (45-117); BUN 21 mg/dl (7-24); CHLORIDE 111 mmol/L (98-107); CREATININE 1.14 mg/dL (0.70-1.30); LIPASE 278 U/L (73-393); POTASSIUM 3.6 mmol/L (3.5-5.1); SGOT/AST 9 IU/L (3-35); SGPT/ALT 12 U/L (12-78); SODIUM 140 mmol/L (136-145); TOTAL PROTEIN 6.2 gm/dL (6.4-8.2)
[2019-09-29 07:30] VITALS: BP 126/75
== END 2019-09-29 08:10 | disposition short-term general hospital (02) ==
LOC: ED 00:35
PROVIDERS: Emergency Medicine Emergency Medical Services
DX: R56.9 Unspecified convulsions (principal); J44.9 Chronic obstructive pulmonary disease, unspecified; K21.9 Gastro-esophageal reflux disease without esophagitis; E78.5 Hyperlipidemia, unspecified; I11.0 Hypertensive heart disease with heart failure; I50.9 Heart failure, unspecified; I48.91 Unspecified atrial fibrillation; Z91.041 Radiographic dye allergy status; Z79.899 Other long term (current) drug therapy; Z79.2 Long term (current) use of antibiotics; Z86.73 Personal history of transient ischemic attack (TIA), and cerebral infarction without residual deficits; Z87.891 Personal history of nicotine dependence